=== PATIENT | male | born 1945 | race Caucasian/White ===

== ENCOUNTER → 2016-09-28 | Outpatient (CLI) | payer MEDICARE, OTHER ==
[~2016-09-28] MED LIST: ALEN1TAB48 PO; ALLO300 PO; ALLO300T2 PO; ALPR.25 PO; ALPR0.25 PO; ASPI1TAB69 PO; CLAR10CA3 PO; CLAR10TA7 PO; CLOP75TA PO; DONE10TA14 PO; DONE10TA7 PO; FAMO20TA2 PO; FISH120014 PO; FISHCAP4 PO; FOSA70TA PO; LEVO50TA4 PO; LOSA50TA PO; MEMA28CA PO; METO25 PO; METO25TA3 PO; NITR0.4S SL; PLAV75TA PO; PROT40TA PO; SERT-132 PO; SERT25TA83 PO; SIMV20 PO; SIMV20TA PO; ZOFR4TAB3 SL
== END ==
LOC: PLAB 14:26
PROVIDERS: ATTEND Radiology Radiation Oncology
DX: C61 Malignant neoplasm of prostate (principal)
CPT/HCPCS: 36415; 84153

== ENCOUNTER 2016-11-29 12:59 | Emergency (ER) | payer MEDICARE, OTHER ==
[~2016-11-29] VITALS: Ht 170.2 cm; Wt 86.0 kg
[~2016-11-29 12:59] MED LIST changes: -ALEN1TAB48 PO; -ALLO300T2 PO; -ALPR0.25 PO; -ASPI1TAB69 PO; -CLAR10CA3 PO; -CLOP75TA PO; -DONE10TA7 PO; -FAMO20TA2 PO; -FISHCAP4 PO; -METO25TA3 PO; -SERT-132 PO; -SIMV20TA PO
[2016-11-29 13:05] VITALS: BP 134/69; PULSE 64; RESP 18; TEMP 98.2; O2SAT 94
[2016-11-29] MEDS ORDERED: LEVO50TA4 PO (13:44)
[2016-11-29] MEDS ORDERED: SERT-132 PO (13:44)
[2016-11-29] MEDS ORDERED: SIMV20TA PO (13:44)
[2016-11-29] MEDS ORDERED: CLOP75TA PO (13:44)
[2016-11-29] MEDS ORDERED: FAMO20TA2 PO (13:44)
[2016-11-29] MEDS ORDERED: DONE10TA7 PO (13:44)
[2016-11-29] MEDS ORDERED: ALPR0.25 PO (13:44)
[2016-11-29] MEDS ORDERED: METO25TA3 PO (13:44)
[2016-11-29] MEDS ORDERED: FISHCAP4 PO (13:44)
[2016-11-29] MEDS ORDERED: MEMA28CA PO (13:44)
[2016-11-29] MEDS ORDERED: ALLO300T2 PO (13:44)
[2016-11-29] MEDS ORDERED: LOSA50TA PO (13:44)
[2016-11-29] MEDS ORDERED: CLAR10CA3 PO (13:44)
[2016-11-29] MEDS ORDERED: ALEN1TAB48 PO (13:44)
[2016-11-29] MEDS ORDERED: ASPI1TAB69 PO (13:44)
[2016-11-29 14:23] VITALS: BP 151/83; PULSE 74; RESP 16; O2SAT 96
--- NOTE | 2016-11-29 14:52 | PD ---
HPI Chief Complaint: GI Complaint Time Seen by Provider: 13:23 Travel History International Travel<30 days: No Contact w/Intl Traveler<30days: No Traveled to known affect area: No History of Present Illness HPI 71-year-old male complains of abdominal pain. Patient has dementia and unable to provide much information. Information obtained from patient's . Patient 's states that patient was going to the bathroom this morning and started complaining abdominal pain. Patient states that the pain was cramping pain intermittent pain. Patient had a near syncopal episode with the pain. Patient' s gave patient some MiraLAX and enema without any result in bowel movement. Patient was brought to the ED for evaluation. Patient had 2 bowel movement in the emergency room. Patient states that he is feeling better however still has some abdominal pain. Patient's reported no vomiting or diarrhea. Patient's blood reported no fever at home. Patient denies any dysuria or frequency. PFSH Past Medical History Hx Anticoagulant Therapy: Yes Arthritis: Yes Blood Disorders: No Anxiety: Yes Depression: Yes Cancer: No Cardiovascular Problems: Yes High Cholesterol: Yes Dementia: Yes Diminished Hearing: No Endocrine: No Gastrointestinal Disorders: Yes (GERD) GERD: Yes Hypertension: Yes Implanted Vascular Access Dvce: No Neurologic: Yes (DEMENTIA) Psychiatric: Yes Immunizations Current: Yes Thyroid Disease: Yes (Hypothryism) Influenza Vaccination: Yes Past Surgical History Other Surgery: No Social History Alcohol Use: No Tobacco Use: No Substance Use: No Allergies-Medications (Allergen,Severity, Reaction): Coded Allergies: No Known Allergies (Verified , 07/02/16) Reported Meds & Prescriptions Reported Meds & Active Scripts Active Reported Claritin (Loratadine) 10 Mg Cap 10 Mg PO DAILY Alendronate (Alendronate Sodium) 70 Mg Tab 70 Mg PO Q7D Metoprolol Tartrate 25 Mg Tab 25 Mg PO BID Donepezil 10 Mg Tab 10 Mg PO HS Clopidogrel (Clopidogrel Bisulfate) 75 Mg Tab 75 Mg PO DAILY Losartan (Losartan Potassium) 50 Mg Tab 50 Mg PO DAILY Aspirin 81 Mg Tabdr 81 Mg PO DAILY Namenda Xr (Memantine) 28 Mg Caper 28 Mg PO DAILY Fish Oil + D3 (Fish Oil-Cholecalciferol) 1,200-1,000 Mg-Unit Cap 1 Cap PO DAILY Famotidine 20 Mg Tab 20 Mg PO DAILY Alprazolam 0.25 Mg Tab 0.25 Mg PO Q6H PRN Sertraline (Sertraline HCl) 50 Mg Tab 50 Mg PO DAILY Levothyroxine (Levothyroxine Sodium) 50 Mcg Tab 50 Mcg PO DAILY Allopurinol 300 Mg Tab 300 Mg PO DAILY Simvastatin 20 Mg Tab 10 Mg PO DAILY Review of Systems General / Constitutional: No: Fever Eyes: No: Visual changes HENT: No: Headaches Cardiovascular: No: Chest Pain or Discomfort Respiratory: No: Shortness of Breath Gastrointestinal: Positive: Abdominal Pain Genitourinary: No: Dysuria Musculoskeletal: No: Pain Skin: No Rash Neurologic: No: Weakness Psychiatric: No: Depression Endocrine: No: Polydipsia Hematologic/Lymphatic: No: Easy Bruising Physical Exam Narrative GENERAL: Well-nourished, well-developed patient. SKIN: Warm and dry. HEAD: Normocephalic. EYES: No scleral icterus. No injection or drainage. NECK: Supple, trachea midline. No JVD or lymphadenopathy. CARDIOVASCULAR: Regular rate and rhythm without murmurs, gallops, or rubs. RESPIRATORY: Breath sounds equal bilaterally. No accessory muscle use. GASTROINTESTINAL: Abdomen soft, nondistended. Patient has mild tenderness on palpation right mid abdomen. No rebound tenderness. No mass. MUSCULOSKELETAL: No cyanosis, or edema. BACK: Nontender without obvious deformity. No CVA tenderness. Neurologic exam: Patient awake and alert. Patient oriented to name. Patient moves all extremity well. No obvious focal neurological deficit. Data Data Last Documented VS Vital Signs Date Time Temp Pulse Resp B/P Pulse Ox O2 Delivery O2 Flow Rate FiO2 11/29/16 15:07 18 97 Room Air 11/29/16 14:23 74 151/83 11/29/16 13:05 98.2 Orders Complete Blood Count With Diff (11/29/16 14:48) Comprehensive Metabolic Panel (11/29/16 14:48) Lipase (11/29/16 14:48) Urinalysis - C+S If Indicated (11/29/16 14:48) Abdomen, Flat & Upright (11/29/16 14:48) Iv Access Insert/Monitor (11/29/16 14:48) Ecg Monitoring (11/29/16 14:48) Oximetry (11/29/16 14:48) Labs Laboratory Tests Test 11/29/16 11/29/16 14:55 15:20 White Blood Count 15.7 TH/MM3 Red Blood Count 3.81 MIL/MM3 Hemoglobin 11.1 GM/DL Hematocrit 34.6 % Mean Corpuscular Volume 90.9 FL Mean Corpuscular Hemoglobin 29.2 PG Mean Corpuscular Hemoglobin 32.1 % Concent Red Cell Distribution Width 13.7 % Platelet Count 218 TH/MM3 Mean Platelet Volume 7.7 FL Neutrophils (%) (Auto) 88.6 % Lymphocytes (%) (Auto) 2.4 % Monocytes (%) (Auto) 6.5 % Eosinophils (%) (Auto) 0.1 % Basophils (%) (Auto) 2.4 % Neutrophils # (Auto) 13.9 TH/MM3 Lymphocytes # (Auto) 0.4 TH/MM3 Monocytes # (Auto) 1.0 TH/MM3 Eosinophils # (Auto) 0.0 TH/MM3 Basophils # (Auto) 0.4 TH/MM3 CBC Comment DIFF FINAL Differential Comment Sodium Level 134 MEQ/L Potassium Level 4.7 MEQ/L Chloride Level 100 MEQ/L Carbon Dioxide Level 25.4 MEQ/L Anion Gap 9 MEQ/L Blood Urea Nitrogen 15 MG/DL Creatinine 1.40 MG/DL Estimat Glomerular Filtration 50 ML/MIN Rate Random Glucose 139 MG/DL Calcium Level 9.3 MG/DL Total Bilirubin 0.5 MG/DL Aspartate Amino Transf 31 U/L (AST/SGOT) Alanine Aminotransferase 30 U/L (ALT/SGPT) Alkaline Phosphatase 121 U/L Total Protein 7.9 GM/DL Albumin 4.4 GM/DL Lipase 127 U/L Urine Color YELLOW Urine Turbidity CLEAR Urine pH 6.0 Urine Specific [place] 1.020 Urine Protein NEG mg/dL Urine Glucose (UA) NEG mg/dL Urine Ketones NEG mg/dL Urine Occult Blood NEG Urine Nitrite NEG Urine Bilirubin NEG Urine Leukocyte Esterase NEG Urine WBC 0-2 /hpf Urine Squamous Epithelial 0-5 /hpf Cells Urine Mucus MOD /lpf Microscopic Urinalysis Comment CULT NOT INDICATED MDM Medical Decision Making Medical Screen Exam Complete: Yes Emergency Medical Condition: Yes Interpretation(s) Last Impressions Abdomen X-Ray 11/29/16 2000 Signed Impressions: Service Date/Time: Tuesday, November 29, 2016 15:18 - CONCLUSION: Unremarkable abdomen. Jonny Mancuso MD 1626 PM. CBC WBC 15.7. Hemoglobin 11.1 hematocrit 34.6. 88 neutrophil. Creatinine 1.4. UA is negative Differential Diagnosis Differential diagnosis including abdominal colic, constipation, colitis, UTI, pyelonephritis, nephrolithiasis. Narrative Course 71-year-old male with intermittent abdominal cramping. Norberto Donahue MD Nov 29, 2016 14:52
[2016-11-29 15:03] LABS: AUTOMATED NEUTROPHIL # 13.9 TH/MM3 (1.8-7.7); BASOPHIL # 0.4 TH/MM3 (0-0.2); BASOPHIL % 2.4 % (0.0-2.0); EOSINOPHIL % 0.1 % (0.0-4.0); HEMATOCRIT 34.6 % (39.0-51.0); LYMPH % 2.4 % (9.0-44.0); LYMPHOCYTE # 0.4 TH/MM3 (1.0-4.8); MEAN CELL VOLUME 90.9 FL (80.0-100.0); MEAN CORPUSCULAR HEMOGLOBIN 29.2 PG (27.0-34.0); MEAN CORPUSCULAR HGB CONC 32.1 % (32.0-36.0); MONO % 6.5 % (0.0-8.0); NEUT % 88.6 % (16.0-70.0); PLATELET COUNT 218 TH/MM3 (150-450); RED BLOOD COUNT 3.81 MIL/MM3 (4.50-5.90); RED CELL DISTRIBUTION WIDTH 13.7 % (11.6-17.2); WHITE BLOOD COUNT 15.7 TH/MM3 (4.0-11.0)
[2016-11-29 15:07] VITALS: RESP 18; O2SAT 97
[2016-11-29 15:14] LABS: CHLORIDE 100 MEQ/L (98-107); POTASSIUM 4.7 MEQ/L (3.5-5.1); SODIUM (NA) 134 MEQ/L (136-145)
[2016-11-29 15:18] LABS: ANION GAP 9 MEQ/L (5-15); BICARBONATE 25.4 MEQ/L (21.0-32.0); BLOOD UREA NITROGEN 15 MG/DL (7-18)
[2016-11-29 15:21] LABS: ALT (GPT) 30 U/L (12-78); AST (GOT) 31 U/L (15-37); GLOMERULAR FILTRATION RATE 50 ML/MIN (>89)
[2016-11-29 15:23] LABS: TOTAL BILIRUBIN ADULT 0.5 MG/DL (0.2-1.0)
[2016-11-29 15:24] LABS: ALKALINE PHOSPHATASE 121 U/L (45-117)
[2016-11-29 15:38] LABS: HEMO FLAGS DIFF FINAL
[2016-11-29 15:53] LABS: BLOOD, URINE NEG (NEG); GLUCOSE,URINE NEG (NEG); KETONE, URINE NEG (NEG); NITRITE,URINE NEG (NEG)
[2016-11-29 16:00] LABS: URINE COLOR YELLOW (YELLW/STRAW)
[2016-11-29 16:01] LABS: COMMENT (UR) CULT NOT INDICATED; CULTURE IF INDICATED CULT NOT INDICATED; MUCUS URINE MOD /lpf (OCC); SQUAMOUS EPITHELIAL CELL URINE 0-5 /hpf (0-5); WBC, URINE 0-2 /hpf (0-5)
--- NOTE | 2016-11-29 16:16 | RADHPO ---
EXAM DATE/TIME: 11/29/2016 15:18 [facility] COMPARISON: No previous studies available for comparison. INDICATIONS : Ileus. Abdominal pain and constipation. MEDICAL HISTORY : None. SURGICAL HISTORY : None. ENCOUNTER: Initial ACUITY: 3 days PAIN SCORE: 4/10 LOCATION: abdomen FINDINGS: Supine and upright views of the abdomen were performed. The abdominal bowel gas pattern is normal. No air fluid levels are seen. No abnormal masses, calcifications, or organomegaly is seen. The visu alized lower lungs are clear. No evidence of free intraperitoneal gas. Degenerative changes lower ned mbar spine. Prostatic seeds are seen.. CONCLUSION: Unremarkable abdomen. Jonny Mancuso MD on November 29, 2016 at 16:14 Board Certified Radiologist. This report was verified electronically.
[2016-11-29] MEDS ORDERED: SODIUM CHLOR 0.9% 1000 ML INJ 1,000 ML IV SCH (16:45)
[2016-11-29] MEDS ORDERED: IOHEXOL 350 MG/ML 10 ML VIAL (for RAD DIAG) IV ONE (17:27)
[2016-11-29 17:42] VITALS: BP 144/77; PULSE 76; RESP 18; O2SAT 93
--- NOTE | 2016-11-29 17:49 | RADHPO ---
EXAM DATE/TIME: 11/29/2016 17:08 [facility] COMPARISON: No previous studies available for comparison. INDICATIONS : Abdominal pain. IV CONTRAST: 75 cc Omnipaque 350 (iohexol) IV ORAL CONTRAST: No oral contrast ingested. RADIATION DOSE: 13.41 CTDIvol (mGy) MEDICAL HISTORY : Gastroesophageal reflux disease. Hypertension. SURGICAL HISTORY : None. ENCOUNTER: Initial ACUITY: 1 day PAIN SCALE: 3/10 LOCATION: abdomen and pelvis TECHNIQUE: Volumetric scanning of the abdomen and pelvis was performed. Using automated exposure control and ad justment of the mA and/or kV according to patient size, radiation dose was kept as low as reasonably achievable to obtain optimal diagnostic quality images. FINDINGS: LOWER LUNGS: The visualized lower lungs are clear. LIVER: Homogeneous density without lesion. There is no dilation of the biliary tree. No calcified [place] es. SPLEEN: Normal size without lesion. PANCREAS: Within normal limits. KIDNEYS: Normal in size and shape. There is no mass, stone or hydronephrosis. ADRENAL GLANDS: Within normal limits. VASCULAR: There is no aortic aneurysm. BOWEL/MESENTERY: The stomach, small bowel, and colon demonstrate no acute abnormality. There is no free intraperitone al air or fluid. ABDOMINAL WALL: Within normal limits. RETROPERITONEUM: There is no lymphadenopathy. BLADDER: No wall thickening or mass. REPRODUCTIVE: Within normal limits. INGUINAL: There is no lymphadenopathy . Small fat-containing inguinal hernias are noted. MUSCULOSKELETAL: Significant lower lumbar facet arthropathy and degenerative disc disease is noted. CONCLUSION: No acute disease. Small bilateral inguinal hernias. Lower lumbar facet arthropathy and degenerative disc disease. Gustavo Wakefield MD on November 29, 2016 at 17:45 Board Certified Radiologist. This report was verified electronically.
--- NOTE | 2016-11-29 17:57 | PD ---
Physical Exam Date Seen by Provider: Nov 29, 2016 Time Seen by Provider: 17:53 Narrative This 71-year-old male seen initially by Dr. Donahue. He has a history of dementia. He had some abdominal pain earlier which started while he was trying to have a bowel movement. He has had a couple bowel movements here. Dr. Perdomo had ordered lab work and his white count came back at 15,000. He was noted to have some right-sided abdominal tenderness since felt that a CT scan should be done to assess for etiology of the pain. The CT scan has been done. There are small bilateral inguinal hernias. The patient at this time has a soft nontender abdomen. He is stable for discharge. This pain may been due to constipation but he is not constipated now Data Data Last Documented VS Vital Signs Date Time Temp Pulse Resp B/P Pulse Ox O2 Delivery O2 Flow Rate FiO2 11/29/16 17:42 76 18 144/77 93 Room Air 11/29/16 13:05 98.2 Orders Complete Blood Count With Diff (11/29/16 14:48) Comprehensive Metabolic Panel (11/29/16 14:48) Lipase (11/29/16 14:48) Urinalysis - C+S If Indicated (11/29/16 14:48) Abdomen, Flat & Upright (11/29/16 14:48) Iv Access Insert/Monitor (11/29/16 14:48) Ecg Monitoring (11/29/16 14:48) Oximetry (11/29/16 14:48) Ct Abd/Pel W Iv Contrast(Rout) (11/29/16 16:38) Sodium Chlor 0.9% 1000 Ml Inj (Ns 1000 M (11/29/16 16:45) Iohexol 350 Inj (Omnipaque 350 Inj) (11/29/16 17:27) Labs Laboratory Tests Test 11/29/16 11/29/16 14:55 15:20 White Blood Count 15.7 TH/MM3 Red Blood Count 3.81 MIL/MM3 Hemoglobin 11.1 GM/DL Hematocrit 34.6 % Mean Corpuscular Volume 90.9 FL Mean Corpuscular Hemoglobin 29.2 PG Mean Corpuscular Hemoglobin 32.1 % Concent Red Cell Distribution Width 13.7 % Platelet Count 218 TH/MM3 Mean Platelet Volume 7.7 FL Neutrophils (%) (Auto) 88.6 % Lymphocytes (%) (Auto) 2.4 % Monocytes (%) (Auto) 6.5 % Eosinophils (%) (Auto) 0.1 % Basophils (%) (Auto) 2.4 % Neutrophils # (Auto) 13.9 TH/MM3 Lymphocytes # (Auto) 0.4 TH/MM3 Monocytes # (Auto) 1.0 TH/MM3 Eosinophils # (Auto) 0.0 TH/MM3 Basophils # (Auto) 0.4 TH/MM3 CBC Comment DIFF FINAL Differential Comment Sodium Level 134 MEQ/L Potassium Level 4.7 MEQ/L Chloride Level 100 MEQ/L Carbon Dioxide Level 25.4 MEQ/L Anion Gap 9 MEQ/L Blood Urea Nitrogen 15 MG/DL Creatinine 1.40 MG/DL Estimat Glomerular Filtration 50 ML/MIN Rate Random Glucose 139 MG/DL Calcium Level 9.3 MG/DL Total Bilirubin 0.5 MG/DL Aspartate Amino Transf 31 U/L (AST/SGOT) Alanine Aminotransferase 30 U/L (ALT/SGPT) Alkaline Phosphatase 121 U/L Total Protein 7.9 GM/DL Albumin 4.4 GM/DL Lipase 127 U/L Urine Color YELLOW Urine Turbidity CLEAR Urine pH 6.0 Urine Specific [place] 1.020 Urine Protein NEG mg/dL Urine Glucose (UA) NEG mg/dL Urine Ketones NEG mg/dL Urine Occult Blood NEG Urine Nitrite NEG Urine Bilirubin NEG Urine Leukocyte Esterase NEG Urine WBC 0-2 /hpf Urine Squamous Epithelial 0-5 /hpf Cells Urine Mucus MOD /lpf Microscopic Urinalysis Comment CULT NOT INDICATED MDM Medical Record Reviewed: No Supervised Visit with LIANET: No Differential Diagnosis Differential included appendicitis, cholecystitis, constipation, nonspecific abdominal pain Narrative Course Patient has had several bowel movements in the ER. His white count came back elevated at 15,[address] Perdomo had ordered a CT scan which has been read as negative. I have reexamined the patient prior to discharge his abdomen is soft nontender. He has no signs. He will be released Diagnosis Primary Impression: Constipation Disposition: 01 DISCHARGE HOME Condition: Stable Vidal Tobin MD Nov 29, 2016 17:57
== END 2016-11-29 18:10 | disposition home or self-care (01) ==
LOC: PHED 12:59
DX: K59.00 Constipation, unspecified (principal); E07.9 Disorder of thyroid, unspecified; F03.90 Unspecified dementia, unspecified severity, without behavioral disturbance, psychotic disturbance, mood disturbance, and anxiety; I10 Essential (primary) hypertension; E78.00 Pure hypercholesterolemia, unspecified; F41.8 Other specified anxiety disorders; M19.90 Unspecified osteoarthritis, unspecified site; Z79.01 Long term (current) use of anticoagulants
CPT/HCPCS: 74020; 74177; 80053; 81001; 83690; 85025; 96360; 99284; J7030; Q9967

== ENCOUNTER → 2017-04-10 | Outpatient (CLI) | payer MEDICARE, OTHER ==
[~2017-04-10] MED LIST changes: +ALEN1TAB48 PO; -ALLO300 PO; +ALLO300T2 PO; -ALPR.25 PO; +ALPR0.25 PO; +ASPI1TAB69 PO; +CLAR10CA3 PO; -CLAR10TA7 PO; +CLOP75TA PO; -DONE10TA14 PO; +DONE10TA7 PO; +FAMO20TA2 PO; -FISH120014 PO; +FISHCAP4 PO; -FOSA70TA PO; -METO25 PO; +METO25TA3 PO; -NITR0.4S SL; -PLAV75TA PO; -PROT40TA PO; +SERT-132 PO; -SERT25TA83 PO; -SIMV20 PO; +SIMV20TA PO; -ZOFR4TAB3 SL
[2017-04-10 11:59] LABS: AUTOMATED NEUTROPHIL # 3.8 TH/MM3 (1.8-7.7); BASOPHIL % 0.9 % (0.0-2.0); EOSINOPHIL # 0.1 TH/MM3 (0-0.4); EOSINOPHIL % 2.4 % (0.0-4.0); HEMATOCRIT 34.3 % (39.0-51.0); HEMO FLAGS DIFF FINAL; LYMPH % 14.3 % (9.0-44.0); LYMPHOCYTE # 0.8 TH/MM3 (1.0-4.8); MEAN CELL VOLUME 89.1 FL (80.0-100.0); MEAN CORPUSCULAR HEMOGLOBIN 29.3 PG (27.0-34.0); MEAN CORPUSCULAR HGB CONC 32.9 % (32.0-36.0); MONO % 12.5 % (0.0-8.0); NEUT % 69.9 % (16.0-70.0); PLATELET COUNT 203 TH/MM3 (150-450); RED BLOOD COUNT 3.85 MIL/MM3 (4.50-5.90); RED CELL DISTRIBUTION WIDTH 15.1 % (11.6-17.2); WHITE BLOOD COUNT 5.4 TH/MM3 (4.0-11.0)
[2017-04-10 12:16] LABS: ANION GAP 8 MEQ/L (5-15); AST (GOT) 23 U/L (15-37); BICARBONATE 25.9 MEQ/L (21.0-32.0); BLOOD UREA NITROGEN 11 MG/DL (7-18); CHLORIDE 100 MEQ/L (98-107); GLOMERULAR FILTRATION RATE 56 ML/MIN (>89); GLUCOSE,FASTING 96 MG/DL (74-99); POTASSIUM 4.1 MEQ/L (3.5-5.1); SODIUM (NA) 134 MEQ/L (136-145)
[2017-04-10 12:25] LABS: ALKALINE PHOSPHATASE 115 U/L (45-117); ALT (GPT) 29 U/L (12-78); HDL CHOLESTEROL 39.1 MG/DL (40.0-60.0); LDL CHOLESTEROL 76 MG/DL (0-99); TOTAL BILIRUBIN ADULT 0.4 MG/DL (0.2-1.0); TRANSFERRIN IRON PROFILE 363 MG/DL (200-360)
== END ==
LOC: PLAB 08:25
PROVIDERS: ATTEND Family Medicine
DX: E78.5 Hyperlipidemia, unspecified (principal); E03.9 Hypothyroidism, unspecified; D64.9 Anemia, unspecified
CPT/HCPCS: 36415; 80053; 80061; 83540; 83550; 84443; 85025

== ENCOUNTER → 2017-07-04 | Outpatient (CLI) | payer MEDICARE, OTHER | LOC: PLAB 11:24 | PROVIDERS: ATTEND Urology | DX: C61 Malignant neoplasm of prostate (principal) | CPT/HCPCS: 36415; 84153 ==

== ENCOUNTER 2017-07-13 21:50 | Emergency (ER) | payer MEDICARE, OTHER ==
[~2017-07-13] VITALS: Ht 167.6 cm; Wt 85.0 kg
[2017-07-13 21:52] VITALS: BP 146/84; PULSE 85; RESP 16; TEMP 98.1; O2SAT 96
--- NOTE | 2017-07-13 22:00 | PD ---
Physical Exam Exam Limitations: Altered Mental Status, Poor Historian Date Seen by Provider: Jul 13, 2017 Time Seen by Provider: 21:57 Narrative 71-year-old male presents to the emergency Department with confusion, headache, and shuffling gait is been progressively worsening over the past 4 days. Patient has a history of dementia, but the feels that he is much more confused and different than baseline in the last 72 hours. We are unable to quantify his headache pain. Patient has no known drug allergies. Data Data Last Documented VS Vital Signs Date Time Temp Pulse Resp B/P (MAP) Pulse Ox O2 Delivery O2 Flow Rate FiO2 07/13/17 21:52 98.1 85 16 146/84 (104) 96 Room Air [facility] Medical Record Reviewed: Yes Supervised Visit with LIANET: Yes Narrative Course Vital signs reviewed. Patient awaiting bed placement. Condition: Stable Oneil Gomez Jul 13, 2017 22:00
[2017-07-13 22:10] VITALS: BP 159/76; PULSE 76; RESP 16; O2SAT 97
[2017-07-13 22:13] VITALS: TEMP 100.4
--- NOTE | 2017-07-13 22:23 | PD ---
HPI Chief Complaint: Altered Mental Status Time Seen by Provider: 22:01 Travel History International Travel<30 days: No Contact w/Intl Traveler<30days: No Traveled to known affect area: No PFSH Past Medical History Hx Anticoagulant Therapy: Yes Arthritis: Yes Blood Disorders: No Anxiety: Yes Depression: Yes Cancer: Yes (PROSTATE) Cardiovascular Problems: Yes High Cholesterol: Yes Dementia: Yes Diminished Hearing: No Endocrine: No Gastrointestinal Disorders: Yes (GERD) GERD: Yes Hypertension: Yes Implanted Vascular Access Dvce: No Neurologic: Yes (DEMENTIA) Psychiatric: Yes Immunizations Current: Yes Thyroid Disease: Yes (HYPOTHYROIDISM) Past Surgical History Cardiac Surgery: Yes (PACEMAKER (2016)) Coronary Artery Bypass Graft: Yes (X4) Other Surgery: No Social History Alcohol Use: No Tobacco Use: No Substance Use: No Allergies-Medications (Allergen,Severity, Reaction): Coded Allergies: No Known Allergies (Verified , 07/02/16) Reported Meds & Prescriptions Reported Meds & Active Scripts Active Reported Claritin (Loratadine) 10 Mg Cap 10 Mg PO DAILY Alendronate (Alendronate Sodium) 70 Mg Tab 70 Mg PO Q7D Metoprolol Tartrate 25 Mg Tab 25 Mg PO BID Donepezil 10 Mg Tab 10 Mg PO HS Clopidogrel (Clopidogrel Bisulfate) 75 Mg Tab 75 Mg PO DAILY Losartan (Losartan Potassium) 50 Mg Tab 50 Mg PO DAILY Aspirin 81 Mg Tabdr 81 Mg PO DAILY Namenda Xr (Memantine) 28 Mg Caper 28 Mg PO DAILY Fish Oil + D3 (Fish Oil-Cholecalciferol) 1,200-1,000 Mg-Unit Cap 1 Cap PO DAILY Famotidine 20 Mg Tab 20 Mg PO DAILY Alprazolam 0.25 Mg Tab 0.25 Mg PO Q6H PRN Sertraline (Sertraline HCl) 50 Mg Tab 50 Mg PO DAILY Levothyroxine (Levothyroxine Sodium) 50 Mcg Tab 50 Mcg PO DAILY Allopurinol 300 Mg Tab 300 Mg PO DAILY Simvastatin 20 Mg Tab 10 Mg PO DAILY Data Data Last Documented VS Vital Signs Date Time Temp Pulse Resp B/P (MAP) Pulse Ox O2 Delivery O2 Flow Rate FiO2 07/14/17 00:37 61 16 136/70 (92) 97 Room Air 07/13/17 22:13 100.4 Orders Orders Complete Blood Count With Diff (07/13/17 22:16) Comprehensive Metabolic Panel (07/13/17 22:16) Lipase (07/13/17 22:16) Lactic Acid (07/13/17 22:16) Prothrombin Time / Inr (Pt) (07/13/17 22:16) Act Partial Throm Time (Ptt) (07/13/17 22:16) Urinalysis - C+S If Indicated (07/13/17 22:16) Iv Access Insert/Monitor (07/13/17 22:16) Ecg Monitoring (07/13/17 22:16) Oximetry (07/13/17 22:16) Sodium Chloride 0.9% Flush (Ns Flush) (07/13/17 22:30) Chest, Single Ap (07/13/17 ) Ct Brain W/O Iv Contrast(Rout) (07/13/17 ) Troponin I (07/13/17 22:16) Electrocardiogram (07/13/17 ) Cath For Specimen (07/13/17 22:51) Ct Abd/Pel W Iv Contrast(Rout) (07/13/17 ) Influenzae A/B Antigen (07/14/17 00:04) Iohexol 350 Inj (Omnipaque 350 Inj) (07/14/17 00:07) Labs Laboratory Tests Test 07/13/17 22:35 07/13/17 22:38 07/13/17 22:50 White Blood Count 6.6 TH/MM3 Red Blood Count 3.66 MIL/MM3 Hemoglobin 10.8 GM/DL Hematocrit 32.4 % Mean Corpuscular Volume 88.5 FL Mean Corpuscular Hemoglobin 29.4 PG Mean Corpuscular Hemoglobin Concent 33.2 % Red Cell Distribution Width 14.8 % Platelet Count 209 TH/MM3 Mean Platelet Volume 7.7 FL Neutrophils (%) (Auto) 69.5 % Lymphocytes (%) (Auto) 14.6 % Monocytes (%) (Auto) 13.4 % Eosinophils (%) (Auto) 1.7 % Basophils (%) (Auto) 0.8 % Neutrophils # (Auto) 4.6 TH/MM3 Lymphocytes # (Auto) 1.0 TH/MM3 Monocytes # (Auto) 0.9 TH/MM3 Eosinophils # (Auto) 0.1 TH/MM3 Basophils # (Auto) 0.1 TH/MM3 CBC Comment DIFF FINAL Differential Comment Prothrombin Time 10.6 SEC Prothromb Time International Ratio 1.0 RATIO Activated Partial Thromboplast Time 26.3 SEC Blood Urea Nitrogen 12 MG/DL Creatinine 1.33 MG/DL Random Glucose 92 MG/DL Total Protein 7.5 GM/DL Albumin 4.2 GM/DL Calcium Level 8.9 MG/DL Alkaline Phosphatase 113 U/L Aspartate Amino Transf (AST/SGOT) 20 U/L Alanine Aminotransferase (ALT/SGPT) 27 U/L Total Bilirubin 0.3 MG/DL Sodium Level 130 MEQ/L Potassium Level 4.2 MEQ/L Chloride Level 95 MEQ/L Carbon Dioxide Level 27.9 MEQ/L Anion Gap 7 MEQ/L Estimat Glomerular Filtration Rate 53 ML/MIN Troponin I LESS THAN 0.02 NG/ML Lipase 144 U/L Lactic Acid Level 0.7 mmol/L Urine Color YELLOW Urine Turbidity CLEAR Urine pH 6.5 Urine Specific [place] 1.016 Urine Protein NEG mg/dL Urine Glucose (UA) NEG mg/dL Urine Ketones NEG mg/dL Urine Occult Blood NEG Urine Nitrite NEG Urine Bilirubin NEG Urine Urobilinogen LESS THAN 2.0 MG/DL Urine Leukocyte Esterase NEG Urine RBC 2 /hpf Urine Squamous Epithelial Cells <1 /hpf Microscopic Urinalysis Comment CULT NOT INDICATED MDM Condition: Stable Corey Zepeda MD Jul 13, 2017 22:23
--- NOTE | 2017-07-13 22:26 | PD ---
HPI Chief Complaint: Altered Mental Status Time Seen by Provider: 22:01 Travel History International Travel<30 days: No Contact w/Intl Traveler<30days: No Traveled to known affect area: No History of Present Illness HPI Patient is a 71-year-old male presents emergency department for evaluation of altered mental status. The patient has a history of dementia was been increasingly confused over the past 2-1/2 days. His states that initially she noticed a shuffling gait and he was touching of his forehead stating that he had a headache. She's not noticed any cough or congestion no nausea no vomiting no new rashes. He's been weaker than usual and this morning was unable to walk, she states normally he can converse and does so but recently he' s just been more confused and harder to have a conversation with. PFSH Past Medical History Hx Anticoagulant Therapy: Yes Arthritis: Yes Blood Disorders: No Anxiety: Yes Depression: Yes Cancer: Yes (PROSTATE) Cardiovascular Problems: Yes High Cholesterol: Yes Dementia: Yes Diminished Hearing: No Endocrine: No Gastrointestinal Disorders: Yes (GERD) GERD: Yes Hypertension: Yes Implanted Vascular Access Dvce: No Neurologic: Yes (DEMENTIA) Psychiatric: Yes Immunizations Current: Yes Thyroid Disease: Yes (HYPOTHYROIDISM) Past Surgical History Cardiac Surgery: Yes (PACEMAKER (2016)) Coronary Artery Bypass Graft: Yes (X4) Other Surgery: No Social History Alcohol Use: No Tobacco Use: No Substance Use: No Allergies-Medications (Allergen,Severity, Reaction): Coded Allergies: No Known Allergies (Verified , 07/02/16) Reported Meds & Prescriptions Reported Meds & Active Scripts Active Reported Claritin (Loratadine) 10 Mg Cap 10 Mg PO DAILY Alendronate (Alendronate Sodium) 70 Mg Tab 70 Mg PO Q7D Metoprolol Tartrate 25 Mg Tab 25 Mg PO BID Donepezil 10 Mg Tab 10 Mg PO HS Clopidogrel (Clopidogrel Bisulfate) 75 Mg Tab 75 Mg PO DAILY Losartan (Losartan Potassium) 50 Mg Tab 50 Mg PO DAILY Aspirin 81 Mg Tabdr 81 Mg PO DAILY Namenda Xr (Memantine) 28 Mg Caper 28 Mg PO DAILY Fish Oil + D3 (Fish Oil-Cholecalciferol) 1,200-1,000 Mg-Unit Cap 1 Cap PO DAILY Famotidine 20 Mg Tab 20 Mg PO DAILY Alprazolam 0.25 Mg Tab 0.25 Mg PO Q6H PRN Sertraline (Sertraline HCl) 50 Mg Tab 50 Mg PO DAILY Levothyroxine (Levothyroxine Sodium) 50 Mcg Tab 50 Mcg PO DAILY Allopurinol 300 Mg Tab 300 Mg PO DAILY Simvastatin 20 Mg Tab 10 Mg PO DAILY Review of Systems Except as stated in HPI: all other systems reviewed are Neg Physical Exam Narrative GENERAL: Well-developed, well-nourished, pleasantly confused elderly male in no obvious distress. SKIN: Focused skin assessment dry. Hot to touch. Normal skin turgor no rash seen on his person. HEAD: Atraumatic. Normocephalic. EYES: Pupils equal and round. No scleral icterus. No injection or drainage. ENT: No nasal bleeding or discharge. Mucous membranes pink and moist. TMs clear bilaterally, oropharynx clear. NECK: Trachea midline. No JVD. Kernig's and Brudzinski signs negative. CARDIOVASCULAR: Regular rate and rhythm. No murmur appreciated. RESPIRATORY: No accessory muscle use. Clear to auscultation. Breath sounds equal bilaterally. GASTROINTESTINAL: Abdomen soft, non-tender, nondistended. Hepatic and splenic margins not palpable. MUSCULOSKELETAL: No obvious deformities. No clubbing. No cyanosis. No edema. NEUROLOGICAL: Awake and alert. No obvious cranial nerve deficits. Motor grossly within normal limits. Normal speech. PSYCHIATRIC: Appropriate mood and affect; insight and judgment normal. Data Data Last Documented VS Vital Signs Date Time Temp Pulse Resp B/P (MAP) Pulse Ox O2 Delivery O2 Flow Rate FiO2 07/14/17 02:09 07/14/17 00:37 61 16 97 Room Air 07/13/17 22:13 100.4 Orders Orders Complete Blood Count With Diff (07/13/17 22:16) Comprehensive Metabolic Panel (07/13/17 22:16) Lipase (07/13/17 22:16) Lactic Acid (07/13/17 22:16) Prothrombin Time / Inr (Pt) (07/13/17 22:16) Act Partial Throm Time (Ptt) (07/13/17 22:16) Urinalysis - C+S If Indicated (07/13/17 22:16) Iv Access Insert/Monitor (07/13/17 22:16) Ecg Monitoring (07/13/17 22:16) Oximetry (07/13/17 22:16) Sodium Chloride 0.9% Flush (Ns Flush) (07/13/17 22:30) Chest, Single Ap (07/13/17 ) Ct Brain W/O Iv Contrast(Rout) (07/13/17 ) Troponin I (07/13/17 22:16) Electrocardiogram (07/13/17 ) Cath For Specimen (07/13/17 22:51) Ct Abd/Pel W Iv Contrast(Rout) (07/13/17 ) Influenzae A/B Antigen (07/14/17 00:04) Iohexol 350 Inj (Omnipaque 350 Inj) (07/14/17 00:07) Ed Discharge Order (07/14/17 01:38) Labs Laboratory Tests Test 07/13/17 22:35 07/13/17 22:38 07/13/17 22:50 White Blood Count 6.6 TH/MM3 Red Blood Count 3.66 MIL/MM3 Hemoglobin 10.8 GM/DL Hematocrit 32.4 % Mean Corpuscular Volume 88.5 FL Mean Corpuscular Hemoglobin 29.4 PG Mean Corpuscular Hemoglobin Concent 33.2 % Red Cell Distribution Width 14.8 % Platelet Count 209 TH/MM3 Mean Platelet Volume 7.7 FL Neutrophils (%) (Auto) 69.5 % Lymphocytes (%) (Auto) 14.6 % Monocytes (%) (Auto) 13.4 % Eosinophils (%) (Auto) 1.7 % Basophils (%) (Auto) 0.8 % Neutrophils # (Auto) 4.6 TH/MM3 Lymphocytes # (Auto) 1.0 TH/MM3 Monocytes # (Auto) 0.9 TH/MM3 Eosinophils # (Auto) 0.1 TH/MM3 Basophils # (Auto) 0.1 TH/MM3 CBC Comment DIFF FINAL Differential Comment Prothrombin Time 10.6 SEC Prothromb Time International Ratio 1.0 RATIO Activated Partial Thromboplast Time 26.3 SEC Blood Urea Nitrogen 12 MG/DL Creatinine 1.33 MG/DL Random Glucose 92 MG/DL Total Protein 7.5 GM/DL Albumin 4.2 GM/DL Calcium Level 8.9 MG/DL Alkaline Phosphatase 113 U/L Aspartate Amino Transf (AST/SGOT) 20 U/L Alanine Aminotransferase (ALT/SGPT) 27 U/L Total Bilirubin 0.3 MG/DL Sodium Level 130 MEQ/L Potassium Level 4.2 MEQ/L Chloride Level 95 MEQ/L Carbon Dioxide Level 27.9 MEQ/L Anion Gap 7 MEQ/L Estimat Glomerular Filtration Rate 53 ML/MIN Troponin I LESS THAN 0.02 NG/ML Lipase 144 U/L Lactic Acid Level 0.7 mmol/L Urine Color YELLOW Urine Turbidity CLEAR Urine pH 6.5 Urine Specific [place] 1.016 Urine Protein NEG mg/dL Urine Glucose (UA) NEG mg/dL Urine Ketones NEG mg/dL Urine Occult Blood NEG Urine Nitrite NEG Urine Bilirubin NEG Urine Urobilinogen LESS THAN 2.0 MG/DL Urine Leukocyte Esterase NEG Urine RBC 2 /hpf Urine Squamous Epithelial Cells <1 /hpf Microscopic Urinalysis Comment CULT NOT INDICATED MDM Medical Decision Making Medical Screen Exam Complete: Yes Emergency Medical Condition: Yes Differential Diagnosis Fever, pneumonia, sepsis, UTI, influenza, Narrative Course Patient roomed emergency department, febrile here but pleasantly confused. Could be a delirium secondary to a viral illness but needs proper workup to exclude serious causes of fever. Chest x-ray negative, UA negative, CT abdomen negative, CT head negative, influenza test negative. No definitive cause of the patient's fever has been isolated. He is certainly nontoxic in appearance and does not meet sepsis criteria. This could be a viral illness and I discussed management of the fever is this may be leading to some of the delirium /worsening dementia. This was discussed at length with the , I offered admission to the hospital for his worsening mental status and fever however I think this could also be worked up as an outpatient and certainly delirium may worsen on admission. After discussion this with his she elects to take him home and follow-up with her primary care physician we discussed at length return to ED criteria. He is stable for discharge Diagnosis Primary Impression: Altered mental status Qualified Codes: R41.82 - Altered mental status, unspecified Additional Impression: Fever Qualified Codes: R50.9 - Fever, unspecified Disposition: 01 DISCHARGE HOME Condition: Stable Corey Zepeda MD Jul 13, 2017 22:25
[2017-07-13] MEDS ORDERED: SODIUM CHLORIDE 0.9% FLUSH 10 ML FLUSH IV FLUSH PRN (22:30)
--- NOTE | 2017-07-13 22:37 | RADRPT ---
EXAM DATE/TIME: 07/13/2017 22:25 [facility] COMPARISON: CHEST SINGLE AP, October 28, 2015, 15:16. INDICATIONS : Fever MEDICAL HISTORY : Gastroesophageal reflux disease. Hypertension SURGICAL HISTORY : Pacemaker. CABG. ENCOUNTER: Initial ACUITY: 1 day PAIN SCORE: Non-responsive. LOCATION: chest FINDINGS: Again noted is evidence of prior median sternotomy cardiac surgery with bipolar pacemaker overlying t he left hemithorax. There is diminished inspiratory effort with clear lung mirza and no acute cardio pulmonary process. CONCLUSION: No acute disease. No significant change has occurred. Ant Campbell MD on July 13, 2017 at 22:35 Board Certified Radiologist. This report was verified electronically.
[2017-07-13 22:54] LABS: AUTOMATED NEUTROPHIL # 4.6 TH/MM3 (1.8-7.7); BASOPHIL # 0.1 TH/MM3 (0-0.2); BASOPHIL % 0.8 % (0.0-2.0); EOSINOPHIL # 0.1 TH/MM3 (0-0.4); EOSINOPHIL % 1.7 % (0.0-4.0); HEMATOCRIT 32.4 % (39.0-51.0); HEMO FLAGS DIFF FINAL; LYMPH % 14.6 % (9.0-44.0); MEAN CELL VOLUME 88.5 FL (80.0-100.0); MEAN CORPUSCULAR HEMOGLOBIN 29.4 PG (27.0-34.0); MEAN CORPUSCULAR HGB CONC 33.2 % (32.0-36.0); MONO % 13.4 % (0.0-8.0); NEUT % 69.5 % (16.0-70.0); PLATELET COUNT 209 TH/MM3 (150-450); RED BLOOD COUNT 3.66 MIL/MM3 (4.50-5.90); RED CELL DISTRIBUTION WIDTH 14.8 % (11.6-17.2); WHITE BLOOD COUNT 6.6 TH/MM3 (4.0-11.0)
[2017-07-13 22:55] VITALS: O2SAT 97
[2017-07-13 23:06] LABS: ALT (GPT) 27 U/L (12-78); ANION GAP 7 MEQ/L (5-15); AST (GOT) 20 U/L (15-37); BICARBONATE 27.9 MEQ/L (21.0-32.0); BLOOD UREA NITROGEN 12 MG/DL (7-18); CHLORIDE 95 MEQ/L (98-107); GLOMERULAR FILTRATION RATE 53 ML/MIN (>89); POTASSIUM 4.2 MEQ/L (3.5-5.1); SODIUM (NA) 130 MEQ/L (136-145)
[2017-07-13 23:09] LABS: APTT (PATIENT) 26.3 SEC (24.3-30.1); PROTHROMBIN TIME - PATIENT 10.6 SEC (9.8-11.6)
[2017-07-13 23:11] LABS: ALKALINE PHOSPHATASE 113 U/L (45-117); TOTAL BILIRUBIN ADULT 0.3 MG/DL (0.2-1.0)
--- NOTE | 2017-07-13 23:21 | RADRPT ---
EXAM DATE/TIME: 07/13/2017 23:01 [facility] COMPARISON: CT BRAIN W/O CONTRAST, July 02, 2016, 4:24. INDICATIONS : Altered mental status, cephalgia, unable to ambulate. RADIATION DOSE: 29.19 CTDIvol (mGy) MEDICAL HISTORY : Dementia. Hypertension. Carcinoma, prostate. SURGICAL HISTORY : None. ENCOUNTER: Initial ACUITY: 1 day PAIN SCALE: 0/10 LOCATION: cranial TECHNIQUE: Multiple contiguous axial images were obtained of the head. Using automated exposure control and adj ustment of the mA and/or kV according to patient size, radiation dose was kept as low as reasonably a chievable to obtain optimal diagnostic quality images. DICOM format image data is available electro nically for review and comparison. FINDINGS: CEREBRUM: The ventricles are prominent consistent with atrophy. No evidence of midline shift, mass lesion, hem orrhage or acute infarction. No extra-axial fluid collections are seen. POSTERIOR FOSSA: The cerebellum and brainstem are intact. The 4th ventricle is midline. The cerebellopontine angle i s unremarkable. EXTRACRANIAL: The visualized portion of the orbits is intact. SKULL: The calvaria is intact. No evidence of skull fracture. CONCLUSION: 1. Cerebral atrophy. 2. No acute intracranial abnormality. Jonny Mancuso MD on July 13, 2017 at 23:17 Board Certified Radiologist. This report was verified electronically.
[2017-07-13 23:26] LABS: BLOOD, URINE NEG (NEG); COMMENT (UR) CULT NOT INDICATED; CULTURE IF INDICATED CULT NOT INDICATED; GLUCOSE,URINE NEG (NEG); KETONE, URINE NEG (NEG); NITRITE,URINE NEG (NEG); PH, URINE 6.5 (5.0-8.5); SQUAMOUS EPITHELIAL CELL URINE <1 /hpf (0-5); URINE COLOR YELLOW (YELLW/STRAW)
[2017-07-14] MEDS ORDERED: IOHEXOL 350 MG/ML 10 ML VIAL (for RAD DIAG) IVCONTRAST ONE (00:07)
--- NOTE | 2017-07-14 00:25 | RADRPT ---
EXAM DATE/TIME: 07/13/2017 23:53 [facility] COMPARISON: CT ABDOMEN & PELVIS W CONTRAST, November 29, 2016, 17:08. INDICATIONS : Fever. IV CONTRAST: 75 cc Omnipaque 350 (iohexol) IV ORAL CONTRAST: No oral contrast ingested. RADIATION DOSE: 6.91 CTDIvol (mGy) MEDICAL HISTORY : Cardiovascular disease. Gastroesophageal reflux disease. Carcinoma, prostate. SURGICAL HISTORY : CABG Pacemaker. ENCOUNTER: Initial ACUITY: 1 day PAIN SCALE: 0/10 LOCATION: Abdomen. TECHNIQUE: Volumetric scanning of the abdomen and pelvis was performed. Using automated exposure control and ad justment of the mA and/or kV according to patient size, radiation dose was kept as low as reasonably achievable to obtain optimal diagnostic quality images. DICOM format image data is available electro nically for review and comparison. FINDINGS: LOWER LUNGS: The visualized lower lungs are clear. LIVER: Homogeneous density without lesion. There is no dilation of the biliary tree. No calcified gallston es. SPLEEN: Normal size without lesion. PANCREAS: Within normal limits. KIDNEYS: Normal in size and shape. There is no mass, stone or hydronephrosis. ADRENAL GLANDS: Within normal limits. VASCULAR: There is no aortic aneurysm. BOWEL/MESENTERY: The stomach, small bowel, and colon demonstrate no acute abnormality. There is no free intraperitone al air or fluid. ABDOMINAL WALL: Within normal limits. RETROPERITONEUM: There is no lymphadenopathy. BLADDER: No wall thickening or mass. REPRODUCTIVE: Prostatic seeds. INGUINAL: There is no lymphadenopathy. Small bilateral fat containing inguinal hernias. MUSCULOSKELETAL: Degenerative changes lower lumbar spine. CONCLUSION: 1. No acute inflammatory process. 2. No abscess. Jonny Mancuso MD on July 14, 2017 at 0:21 Board Certified Radiologist. This report was verified electronically.
[2017-07-14 00:37] VITALS: BP 136/70; PULSE 61; RESP 16; O2SAT 97
--- NOTE | 2017-07-14 23:16 | EKG ---
Date Performed: 07/13/2017 Time Performed: 22:12:05 PTAGE: 71 years EKG: ELECTRONIC ATRIAL PACEMAKER BORDERLINE LEFT AXIS DEVIATION ABNORMAL RHYTHM ECG PREVIOUS TRACING : 10/28/2015 12.19 Compared to prior tracing no significant change DOCTOR: Jesus Lin Interpretating Date/Time 07/14/2017 23:16:37
== END 2017-07-14 02:05 | disposition home or self-care (01) ==
LOC: NEPE 21:50
DX: R41.82 Altered mental status, unspecified (principal); R50.9 Fever, unspecified; R51 Headache; R26.89 Other abnormalities of gait and mobility; R53.1 Weakness; R94.31 Abnormal electrocardiogram [ECG] [EKG]; I10 Essential (primary) hypertension; E03.9 Hypothyroidism, unspecified; F03.90 Unspecified dementia, unspecified severity, without behavioral disturbance, psychotic disturbance, mood disturbance, and anxiety; E78.00 Pure hypercholesterolemia, unspecified; Z79.01 Long term (current) use of anticoagulants; Z87.39 Personal history of other diseases of the musculoskeletal system and connective tissue; Z86.59 Personal history of other mental and behavioral disorders; Z85.46 Personal history of malignant neoplasm of prostate; Z87.19 Personal history of other diseases of the digestive system
CPT/HCPCS: 70450; 71010; 74177; 80053; 81001; 83605; 83690; 84484; 85025; 85610; 85730; 87804; 93005; 99285; P9612; Q9967

== ENCOUNTER 2017-07-14 06:56 | Inpatient (IN) | payer MEDICARE, OTHER ==
[2017-07-14] VITALS (8 sets, daily range): BP systolic 128–170; BP diastolic 62–91; PULSE 59–77; RESP 16–19; TEMP 97.4–98.8; O2SAT 95–100
[2017-07-14] MEDS ORDERED: SODIUM CHLOR 0.9% 1000 ML INJ 1,000 ML IV ONE (07:15)
--- NOTE | 2017-07-14 07:29 | PD ---
HPI Chief Complaint: Altered Mental Status Time Seen by Provider: 06:58 Travel History International Travel<30 days: No Contact w/Intl Traveler<30days: No Traveled to known affect area: No History of Present Illness HPI 71-year-old male was brought in by EMS from home for altered mental status. Patient was seen in emergency room last night for altered mental status for the past 2-3 days. Patient has history of dementia and was not able to provide much information. Patient's states that patient started having shuffling gait and generalized weakness for the past 3 days. Patient has been more confused and harder to have a conversation with. Patient's states that no coughing congestion, no nausea vomiting or diarrhea. Patient has history of CAD status post CABG and pacemaker placement. Patient has history hypothyroidism, dementia, GERD and prostate cancer. Patient also has history anxiety depression. Patient had blood work, CT scan of the brain and abdomen pelvis which were within normal limit. Patient was offered admission however patient's elected take him home. Patient's states that patient was found unresponsive this morning. EMS was called. Patient was found to have pinpoint pupil. Narcan 0.4 mg IV given. Patient was reported with minimal improvement of mental status for about 2 minutes. Patient was found to have bradycardia. Patient was transferred to the ED for evaluation. PFSH Past Medical History Hx Anticoagulant Therapy: Yes Arthritis: Yes Blood Disorders: No Anxiety: Yes Depression: Yes Cancer: Yes (PROSTATE) Cardiovascular Problems: Yes High Cholesterol: Yes Dementia: Yes Diminished Hearing: No Endocrine: No Gastrointestinal Disorders: Yes (GERD) GERD: Yes Hypertension: Yes Implanted Vascular Access Dvce: No Neurologic: Yes (DEMENTIA) Psychiatric: Yes Immunizations Current: Yes Thyroid Disease: Yes (HYPOTHYROIDISM) Past Surgical History Cardiac Surgery: Yes (PACEMAKER (2016)) Coronary Artery Bypass Graft: Yes (X4) Other Surgery: No Social History Alcohol Use: No Tobacco Use: No Substance Use: No Allergies-Medications (Allergen,Severity, Reaction): Coded Allergies: No Known Allergies (Verified , 07/02/16) Reported Meds & Prescriptions Reported Meds & Active Scripts Active Reported Claritin (Loratadine) 10 Mg Cap 10 Mg PO DAILY Alendronate (Alendronate Sodium) 70 Mg Tab 70 Mg PO Q7D Metoprolol Tartrate 25 Mg Tab 25 Mg PO BID Donepezil 10 Mg Tab 10 Mg PO HS Clopidogrel (Clopidogrel Bisulfate) 75 Mg Tab 75 Mg PO DAILY Losartan (Losartan Potassium) 50 Mg Tab 50 Mg PO DAILY Namenda Xr (Memantine) 28 Mg Caper 28 Mg PO DAILY Fish Oil + D3 (Fish Oil-Cholecalciferol) 1,200-1,000 Mg-Unit Cap 1 Cap PO DAILY Famotidine 20 Mg Tab 20 Mg PO DAILY Alprazolam 0.25 Mg Tab 0.25 Mg PO Q6H PRN Sertraline (Sertraline HCl) 50 Mg Tab 50 Mg PO DAILY Levothyroxine (Levothyroxine Sodium) 50 Mcg Tab 50 Mcg PO DAILY Allopurinol 300 Mg Tab 300 Mg PO DAILY Simvastatin 20 Mg Tab 10 Mg PO DAILY Review of Systems ROS Limitations: Altered Mental Status General / Constitutional: No: Fever Eyes: No: Visual changes HENT: No: Headaches Cardiovascular: No: Chest Pain or Discomfort Respiratory: No: Shortness of Breath Gastrointestinal: No: Abdominal Pain Genitourinary: No: Dysuria Musculoskeletal: No: Pain Skin: No Rash Neurologic: No: Weakness Psychiatric: No: Depression Endocrine: No: Polydipsia Hematologic/Lymphatic: No: Easy Bruising Physical Exam Narrative GENERAL: Well-nourished, well-developed patient. SKIN: Focused skin assessment warm/dry. HEAD: Normocephalic. EYES: No scleral icterus. No injection or drainage. Pupils 2 mm equal reactive. NECK: Supple, trachea midline. No JVD or lymphadenopathy. CARDIOVASCULAR: Regular rate and rhythm without murmurs, gallops, or rubs. RESPIRATORY: Breath sounds equal bilaterally. No accessory muscle use. GASTROINTESTINAL: Abdomen soft, non-tender, nondistended. MUSCULOSKELETAL: No cyanosis, or edema. BACK: Nontender without obvious deformity. No CVA tenderness. Neurologic exam: Patient is lethargic. Patient opens eyes on command. Patient can state his name. Patient does not move any extremity on command however respond to painful stimuli and withdraw with pain. Distal reflexes 1+ and equal. Negative Babinski. Data Data Last Documented VS Vital Signs Date Time Temp Pulse Resp B/P (MAP) Pulse Ox O2 Delivery O2 Flow Rate FiO2 07/14/17 07:50 60 16 138/62 (87) 99 Nasal Cannula 4.00 07/14/17 06:58 98.0 Orders Orders Electrocardiogram (07/14/17 07:06) Complete Blood Count With Diff (07/14/17 07:06) Comprehensive Metabolic Panel (07/14/17 07:06) Creatine Kinase (Cpk) (07/14/17 07:06) Troponin I (07/14/17 07:06) B-Type Natriuretic Peptide (07/14/17 07:06) Prothrombin Time / Inr (Pt) (07/14/17 07:06) Act Partial Throm Time (Ptt) (07/14/17 07:06) Blood Culture (07/14/17 07:06) Urinalysis - C+S If Indicated (07/14/17 07:06) Thyroid Stimulating Hormone (07/14/17 07:06) Chest, Single Ap (07/14/17 07:06) Iv Access Insert/Monitor (07/14/17 07:06) Ecg Monitoring (07/14/17 07:06) Oximetry (07/14/17 07:06) Lactic Acid Sepsis Protocol (07/14/17 07:06) Sodium Chlor 0.9% 1000 Ml Inj (Ns 1000 M (07/14/17 07:15) Vancomycin Inj (Vancomycin Inj) (07/14/17 07:30) Piperacil-Tazo 3.375 Gm Premix (Zosyn 3. (07/14/17 07:30) Mri Brain W/O Contrast (07/14/17 08:43) Mra Brain W/O Contrast (Cow) (07/14/17 08:43) Mra Carotids W Contrast (07/14/17 08:43) Labs Laboratory Tests Test 07/14/17 07:05 07/14/17 07:15 Prothrombin Time 11.0 SEC Prothromb Time International Ratio 1.0 RATIO Activated Partial Thromboplast Time 23.8 SEC White Blood Count 5.0 TH/MM3 Red Blood Count 3.47 MIL/MM3 Hemoglobin 10.3 GM/DL Hematocrit 31.0 % Mean Corpuscular Volume 89.4 FL Mean Corpuscular Hemoglobin 29.6 PG Mean Corpuscular Hemoglobin Concent 33.2 % Red Cell Distribution Width 14.5 % Platelet Count 179 TH/MM3 Mean Platelet Volume 8.1 FL Neutrophils (%) (Auto) 70.2 % Lymphocytes (%) (Auto) 12.9 % Monocytes (%) (Auto) 14.8 % Eosinophils (%) (Auto) 1.2 % Basophils (%) (Auto) 0.9 % Neutrophils # (Auto) 3.5 TH/MM3 Lymphocytes # (Auto) 0.7 TH/MM3 Monocytes # (Auto) 0.7 TH/MM3 Eosinophils # (Auto) 0.1 TH/MM3 Basophils # (Auto) 0.0 TH/MM3 CBC Comment DIFF FINAL Differential Comment Blood Urea Nitrogen 11 MG/DL Creatinine 1.32 MG/DL Random Glucose 106 MG/DL Total Protein 7.0 GM/DL Albumin 4.0 GM/DL Calcium Level 8.9 MG/DL Alkaline Phosphatase 98 U/L Aspartate Amino Transf (AST/SGOT) 20 U/L Alanine Aminotransferase (ALT/SGPT) 23 U/L Total Bilirubin 0.5 MG/DL Sodium Level 130 MEQ/L Potassium Level 4.1 MEQ/L Chloride Level 98 MEQ/L Carbon Dioxide Level 24.4 MEQ/L Anion Gap 8 MEQ/L Estimat Glomerular Filtration Rate 53 ML/MIN Lactic Acid Level 1.0 mmol/L Total Creatine Kinase 97 U/L Troponin I LESS THAN 0.02 NG/ML B-Type Natriuretic Peptide 26 PG/ML Thyroid Stimulating Hormone 3rd Gen 4.320 uIU/ML MDM Medical Decision Making Medical Screen Exam Complete: Yes Emergency Medical Condition: Yes Interpretation(s) Last Impressions Chest X-Ray 07/14/17 0706 Signed Impressions: Service Date/Time: Friday, July 14, 2017 07:30 - CONCLUSION: Underinflated examination with atelectasis at the lung bases. Otherwise, no acute finding is identified. Santy Hernadez MD 8:45 AM. CBC within normal limit. Sodium 1:30. Creatinine 1.32. Lactic acid 1.0. Cardiac enzymes are normal. BNP 26. TSH 4.32. UA done last night was negative. Differential Diagnosis Differential diagnosis including sepsis, TIA, CVA, electrolyte imbalance, dehydration, [place]. Narrative Course 71-year-old male with altered mental status. Patient had fever last night during emergency room visit last night. Patient was discharged last night. Workup was negative last night. Patient was found unresponsive this morning. Patient was bradycardic and has blood pressure this morning. Normal saline solution 1 L IV bolus. Vancomycin 1 g IV. Zosyn 3.375 g IV. Diagnosis Primary Impression: Altered mental status Qualified Codes: R41.0 - Disorientation, unspecified Admitting Information Admitting Physician Requests: Admit Norberto Donahue MD Jul 14, 2017 07:29
[2017-07-14] MEDS ORDERED: VANCOMYCIN INJ 1,000 MG in SODIUM CHLOR 0.9% 250 ML INJ 250 ML IV ONE (07:30)
[2017-07-14] MEDS ORDERED: PIPERACIL-TAZO 3.375 GM PREMIX 50 ML IV ONE (07:30)
--- NOTE | 2017-07-14 07:42 | RADRPT ---
EXAM DATE/TIME: 07/14/2017 07:30 [facility] COMPARISON: CHEST SINGLE AP, July 13, 2017, 22:25. INDICATIONS : Shortness of breath. MEDICAL HISTORY : Gastroesophageal reflux disease. Hypertension SURGICAL HISTORY : Pacemaker. CABG. ENCOUNTER: Initial ACUITY: 1 day PAIN SCORE: Non-responsive. LOCATION: Bilateral chest FINDINGS: Portable AP view of the chest demonstrates cardiac silhouette size at the upper limits for normal in this patient post median sternotomy. Left chest wall cardiac pacing device is present. Lungs are unde rinflated. There is atelectasis at the lung bases. No effusion or pneumothorax is identified. The bon es and soft tissues demonstrate no acute finding. CONCLUSION: Underinflated examination with atelectasis at the lung bases. Otherwise, no acute finding is identifi ed. Santy Hernadez MD on July 14, 2017 at 7:40 Board Certified Radiologist. This report was verified electronically.
[2017-07-14 07:44] LABS: AUTOMATED NEUTROPHIL # 3.5 TH/MM3 (1.8-7.7); BASOPHIL % 0.9 % (0.0-2.0); EOSINOPHIL # 0.1 TH/MM3 (0-0.4); EOSINOPHIL % 1.2 % (0.0-4.0); HEMOGLOBIN 10.3 GM/DL (13.0-17.0); LYMPH % 12.9 % (9.0-44.0); LYMPHOCYTE # 0.7 TH/MM3 (1.0-4.8); MEAN CELL VOLUME 89.4 FL (80.0-100.0); MEAN CORPUSCULAR HEMOGLOBIN 29.6 PG (27.0-34.0); MEAN CORPUSCULAR HGB CONC 33.2 % (32.0-36.0); MEAN PLATELET VOLUME 8.1 FL (7.0-11.0); MONO % 14.8 % (0.0-8.0); MONOCYTE # 0.7 TH/MM3 (0-0.9); NEUT % 70.2 % (16.0-70.0); PLATELET COUNT 179 TH/MM3 (150-450); RED BLOOD COUNT 3.47 MIL/MM3 (4.50-5.90); RED CELL DISTRIBUTION WIDTH 14.5 % (11.6-17.2)
[2017-07-14 08:05] LABS: ALT (GPT) 23 U/L (12-78)
[2017-07-14 08:08] LABS: AST (GOT) 20 U/L (15-37); BICARBONATE 24.4 MEQ/L (21.0-32.0); BLOOD UREA NITROGEN 11 MG/DL (7-18); CALCIUM 8.9 MG/DL (8.5-10.1); CHLORIDE 98 MEQ/L (98-107); CREATININE 1.32 MG/DL (0.60-1.30); GLOMERULAR FILTRATION RATE 53 ML/MIN (>89); GLUCOSE,RANDOM 106 MG/DL (74-106); SODIUM (NA) 130 MEQ/L (136-145)
[2017-07-14 08:14] LABS: ALKALINE PHOSPHATASE 98 U/L (45-117); TOTAL BILIRUBIN ADULT 0.5 MG/DL (0.2-1.0); TROPONIN I LESS THAN 0.02 NG/ML (0.02-0.05)
[2017-07-14] MEDS ORDERED: BISACODYL 10 MG SUPP RECTAL PRN (09:30)
[2017-07-14] MEDS ORDERED: NALOXONE HCL 0.4 MG/ML AMP IV PUSH PRN (09:30)
[2017-07-14] MEDS ORDERED: MAGNESIUM HYDROXIDE SUSP 30 ML CUP PO PRN (09:30)
[2017-07-14] MEDS ORDERED: ONDANSETRON HCL 4 MG/2 ML VIAL IVP PRN (09:30)
[2017-07-14] MEDS ORDERED: SODIUM CHLORIDE 0.9% FLUSH 10 ML FLUSH IV FLUSH PRN (09:30)
[2017-07-14] MEDS ORDERED: LACTULOSE SYRUP 20 GM/30 ML CUP PO PRN (09:30)
[2017-07-14] MEDS ORDERED: SENNOSIDES 8.6 MG TAB PO PRN (09:30)
[2017-07-14] MEDS: SODIUM CHLOR 0.9% 1000 ML INJ 1,000 ML IV SCH ×2 (13:00→20:00)
--- NOTE | 2017-07-14 13:14 | HHI.HP ---
[facility] Mireille Zepeda MD Admission Diagnosis altered mental status. Rule out sepsis. Diagnoses: Chief Complaint: passed out this morning. More confused, shuffling gait. Travel History International Travel<30 Days: No Contact w/Intl Traveler <30 Da: No Traveled to Known Affected Are: No History of Present Illness Mr. Hendricks is a 71-year-old male with a history of Alzheimer's dementia who presents to the emergency department today due to increased confusion, shuffling gait. History is mostly taken from patient's present at bedside. On 07/10/2017, patient was noted to be more confused than his baseline. Within 2 days he also had shuffling gait, headache. He could not keep his legs straight. He was so confused that he would go to the bathroom take all his clothes off and urinated on the floor. He had a temperature of 100.9F in the last few days patient was evaluated in the emergency department yesterday. However the workup was within normal limit and patient went home. This morning, however, patient was found unresponsive and subsequently EMS was called by his . At the time of this interview, patient is alert and awake but heavily confused. Per patient's , no chest pain, shortness of breath, abdominal pain or cough. Review of Systems Except as stated in HPI: all other systems reviewed are Neg Past Family Social History Past Medical History Coronary artery disease status post CABG 4 in 2014 Pacemaker placement 2016 Prostate cancer patient received radiation On exam of dementia Hypertension Past Surgical History CABG 4 2014 No other major surgery. Reported Medications Claritin (Loratadine) 10 Mg Cap 10 Mg PO DAILY Alendronate (Alendronate Sodium) 70 Mg Tab 70 Mg PO Q7D Metoprolol Tartrate 25 Mg Tab 25 Mg PO BID Donepezil 10 Mg Tab 10 Mg PO HS Clopidogrel (Clopidogrel Bisulfate) 75 Mg Tab 75 Mg PO DAILY Losartan (Losartan Potassium) 50 Mg Tab 50 Mg PO DAILY Namenda Xr (Memantine) 28 Mg Caper 28 Mg PO DAILY Fish Oil + D3 (Fish Oil-Cholecalciferol) 1,200-1,000 Mg-Unit Cap 1 Cap PO DAILY Famotidine 20 Mg Tab 20 Mg PO DAILY Alprazolam 0.25 Mg Tab 0.25 Mg PO Q6H PRN Sertraline (Sertraline HCl) 50 Mg Tab 50 Mg PO DAILY Levothyroxine (Levothyroxine Sodium) 50 Mcg Tab 50 Mcg PO DAILY Allopurinol 300 Mg Tab 300 Mg PO DAILY Simvastatin 20 Mg Tab 10 Mg PO DAILY Allergies: Coded Allergies: No Known Allergies (Verified , 07/02/16) Family History Mother had Alzheimer's dementia Social History Patient does not smoke or use illicit drugs. He drinks beer occasionally. Physical Exam Vital Signs Vital Signs Date Time Temp Pulse Resp B/P (MAP) Pulse Ox O2 Delivery O2 Flow Rate FiO2 07/14/17 12:24 97.6 59 17 144/69 (94) 100 07/14/17 10:30 07/14/17 09:50 98 Nasal Cannula 4.00 07/14/17 09:37 65 16 159/87 (111) 98 Nasal Cannula 4.00 07/14/17 07:50 60 16 138/62 (87) 99 Nasal Cannula 4.00 07/14/17 07:39 98 Nasal Cannula 4.00 07/14/17 07:07 92 Nasal Cannula 2.00 07/14/17 07:07 90 Room Air 07/14/17 07:02 67 16 95 Room Air 07/14/17 06:58 98.0 65 16 128/73 (91) 95 Physical Exam GENERAL: This is a well-nourished, well-developed patient, in no apparent distress. Alert, awake but oriented to person only. SKIN: No rashes, ecchymoses or lesions. Warm and dry. HEAD: Atraumatic. Normocephalic. No temporal or scalp tenderness. EYES: Pupils equal round and reactive. No injection or drainage. ENT: Nose without bleeding, purulent drainage or septal hematoma. Airway patent. NECK: Trachea midline. No lymphadenopathy. Supple, nontender, no meningeal signs. CARDIOVASCULAR: Regular rate and rhythm without murmurs, gallops, or rubs. No JVD. RESPIRATORY: Clear to auscultation. Breath sounds equal bilaterally. No wheezes , rales, or rhonchi. GASTROINTESTINAL: Abdomen soft, non-tender, nondistended. No guarding. MUSCULOSKELETAL: Extremities without clubbing, cyanosis, or edema. NEUROLOGICAL: Awake and alert. Cranial nerves II through XII intact. No focal neurological deficits. Normal speech. Laboratory Laboratory Tests Test 07/14/17 07:05 07/14/17 07:15 Prothrombin Time 11.0 Prothromb Time International Ratio 1.0 Activated Partial Thromboplast Time 23.8 White Blood Count 5.0 Red Blood Count 3.47 Hemoglobin 10.3 Hematocrit 31.0 Mean Corpuscular Volume 89.4 Mean Corpuscular Hemoglobin 29.6 Mean Corpuscular Hemoglobin Concent 33.2 Red Cell Distribution Width 14.5 Platelet Count 179 Mean Platelet Volume 8.1 Neutrophils (%) (Auto) 70.2 Lymphocytes (%) (Auto) 12.9 Monocytes (%) (Auto) 14.8 Eosinophils (%) (Auto) 1.2 Basophils (%) (Auto) 0.9 Neutrophils # (Auto) 3.5 Lymphocytes # (Auto) 0.7 Monocytes # (Auto) 0.7 Eosinophils # (Auto) 0.1 Basophils # (Auto) 0.0 CBC Comment DIFF FINAL Differential Comment Blood Urea Nitrogen 11 Creatinine 1.32 Random Glucose 106 Total Protein 7.0 Albumin 4.0 Calcium Level 8.9 Alkaline Phosphatase 98 Aspartate Amino Transf (AST/SGOT) 20 Alanine Aminotransferase (ALT/SGPT) 23 Total Bilirubin 0.5 Sodium Level 130 Potassium Level 4.1 Chloride Level 98 Carbon Dioxide Level 24.4 Anion Gap 8 Estimat Glomerular Filtration Rate 53 Lactic Acid Level 1.0 Total Creatine Kinase 97 Troponin I LESS THAN 0.02 B-Type Natriuretic Peptide 26 Thyroid Stimulating Hormone 3rd Gen 4.320 Date/Time Source Procedure Growth Status 07/14/17 07:20 Blood Peripheral Aerobic Blood Culture Pending Received 07/14/17 07:20 Blood Peripheral Anaerobic Blood Culture Pending Received Result Diagram: 07/14/1715 07/14/17714 Imaging Last Impressions Chest X-Ray 07/14/17705 Signed Impressions: Service Date/Time: Friday, July 14, 2017 07:30 - CONCLUSION: Underinflated examination with atelectasis at the lung bases. Otherwise, no acute finding is identified. MD Kwasi Urias VTE Risk Assessment Caprini VTE Risk Assessment: Mod/High Risk (score >= 2) Caprini Risk Assessment Model Point Value = 1 Point Value = 2 Point Value = 3 Point Value = 5 Age 41-60 Minor surgery BMI > 25 kg/m2 Swollen legs Varicose veins or History of unexplained or recurrent spontaneous Oral contraceptives or hormone replacement Sepsis (< 1 month) Serious lung disease, including pneumonia (< 1 month) Abnormal pulmonary function Acute myocardial infarction Congestive heart failure (< 1 month) History of inflammatory bowel disease Medical patient at bed rest Age 61-74 Arthroscopic surgery Major open surgery (> 45 min) Laparoscopic surgery (> 45 min) Malignancy Confined to bed (> 72 hours) Immobilizing plaster cast Central venous access Age >= 75 History of VTE Family history of VTE Factor V Leiden Prothrombin [id number] Lupus anticoagulant Anticardiolipin antibodies Elevated serum homocysteine Heparin-induced thrombocytopenia Other congenital or acquired thrombophilia Stroke (< 1 month) Elective arthroplasty Hip, pelvis, or leg fracture Acute spinal cord injury (< 1 month) Prophylaxis Regimen Total Risk Factor Score Risk Level Prophylaxis Regimen 0-1 Low Early ambulation 2 Moderate Order ONE of the following: *Sequential Compression Device (SCD) *Heparin 5000 units SQ BID 3-4 Higher Order ONE of the following medications: *Heparin 5000 units SQ TID *Enoxaparin/Lovenox 40 mg SQ daily (WT < 150 kg, CrCl > 30 mL/min) *Enoxaparin/Lovenox 30 mg SQ daily (WT < 150 kg, CrCl > 10-29 mL/min) *Enoxaparin/Lovenox 30 mg SQ BID (WT < 150 kg, CrCl > 30 mL/min) AND/OR *Sequential Compression Device (SCD) 5 or more Highest Order ONE of the following medications: *Heparin 5000 units SQ TID (Preferred with Epidurals) *Enoxaparin/Lovenox 40 mg SQ daily (WT < 150 kg, CrCl > 30 mL/min) *Enoxaparin/Lovenox 30 mg SQ daily (WT < 150 kg, CrCl > 10-29 mL/min) *Enoxaparin/Lovenox 30 mg SQ BID (WT < 150 kg, CrCl > 30 mL/min) AND *Sequential Compression Device (SCD) Assessment and Plan Assessment and Plan Mr. Hendricks is a 71 year old male with a history of dementia who presented to the ED after he was found unresponsive by his . Day prior to this admission , she brought him to the ED due to 5-6 day duration of increased confusion, shuffling gait. - Acute encephalopathy - Although he has dementia, apparently his degree of confusion is much more profound than he normally is. - No focal deficits. Patient is only oriented to himself. Follows commands partially but not quite consistently. - MRI studies are pending. - Will ask Neurology for an input. - Alzheimer's dementia - Will continue home medications. - Possible bradycardia - Does not appear to be related to patient's clinical symptoms. - I discussed with Cardiology, will consult them and also will request device interrogation. Patient has a [employer] pacemaker. - Hypertension - will continue losartan. Hold beta davy for now. Full code. Physician Certification 2 Midnight Certification Type: Admission for Inpatient Services Order for Inpatient Services The services are ordered in accordance with Medicare regulations or non- Medicare payer requirements, as applicable. In the case of services not specified as inpatient-only, they are appropriately provided as inpatient services in accordance with the 2-midnight benchmark. Estimated LOS (days): 2 days is the estimated time the patient will need to remain in the hospital, assuming treatment plan goals are met and no additional complications. Post-Hospital Plan: Home De Gomez DO Jul 14, 2017 13:14
--- NOTE | 2017-07-14 15:50 | PD.CONS ---
HPI Service Cardiology physicians Consult Requested By Dr Gomez Reason for Consult Syncope Primary Care Physician Mireille Zepeda MD History of Present Illness The patient is a 71 year old male known to our practice with a cardiac history of ASHD, SSS s/p PPM, HTN and HLD. Other notable history includes Alzheimer disease. The patient is only oriented to his first name. Information was obtained from medical records. The patient was brought to the ER yesterday for increased AMS and fever and discharged home. He was found unresponsive this morning. Noted to have pinpoint pupils that did not improve much with Narcan. Today, on evaluation, he is oriented only to his first name. Cannot have a conversation, easily distracted. Pending device interrogation and brain MRI. (Rosangela Willis) Review of Systems ROS Limitations: Altered Mental Status (Rosangela Willis) Past Family Social History Allergies: Coded Allergies: No Known Allergies (Verified , 07/02/16) Past Medical History See HPI Past Surgical History PPM 10/2015 CABG 2014 Heart cath 2014 Reported Medications Reported Meds & Active Scripts Active Reported Claritin (Loratadine) 10 Mg Cap 10 Mg PO DAILY Alendronate (Alendronate Sodium) 70 Mg Tab 70 Mg PO Q7D Metoprolol Tartrate 25 Mg Tab 25 Mg PO BID Donepezil 10 Mg Tab 10 Mg PO HS Clopidogrel (Clopidogrel Bisulfate) 75 Mg Tab 75 Mg PO DAILY Losartan (Losartan Potassium) 50 Mg Tab 50 Mg PO DAILY Namenda Xr (Memantine) 28 Mg Caper 28 Mg PO DAILY Fish Oil + D3 (Fish Oil-Cholecalciferol) 1,200-1,000 Mg-Unit Cap 1 Cap PO DAILY Famotidine 20 Mg Tab 20 Mg PO DAILY Alprazolam 0.25 Mg Tab 0.25 Mg PO Q6H PRN Sertraline (Sertraline HCl) 50 Mg Tab 50 Mg PO DAILY Levothyroxine (Levothyroxine Sodium) 50 Mcg Tab 50 Mcg PO DAILY Allopurinol 300 Mg Tab 300 Mg PO DAILY Simvastatin 20 Mg Tab 10 Mg PO DAILY Active Ordered Medications Current Medications Medications (Trade) Dose Ordered Sig/Beth Route Start Time Stop Time Status Last Admin Sodium Chloride 1,000 ml @ 100 mls/hr Q10H IV 07/14/17 10:00 07/14/17 13:00 (NS Flush) 2 ml UNSCH PRN IV FLUSH 07/14/17 09:30 (NS Flush) 2 ml BID IV FLUSH 07/14/17 21:00 (Tylenol) 650 mg Q4H PRN PO 07/14/17 09:30 (Zofran Inj) 4 mg Q6H PRN IVP 07/14/17 09:30 (Narcan Inj) 0.4 mg UNSCH PRN IV PUSH 07/14/17 09:30 (Sherrell-Colace) 1 tab BID PO 07/14/17 21:00 (Milk Of Magnesia Liq) 30 ml Q12H PRN PO 07/14/17 09:30 (Senokot) 17.2 mg Q12H PRN PO 07/14/17 09:30 (Dulcolax Supp) 10 mg DAILY PRN RECTAL 07/14/17 09:30 (Lactulose Liq) 30 ml DAILY PRN PO 07/14/17 09:30 Family History non contributory Social History Patient cannot provide information (Rosangela Willis) Physical Exam Vital Signs Vital Signs Date Time Temp Pulse Resp B/P (MAP) Pulse Ox O2 Delivery O2 Flow Rate FiO2 07/14/17 12:24 97.6 59 17 144/69 (94) 100 07/14/17 10:30 07/14/17 09:50 98 Nasal Cannula 4.00 07/14/17 09:37 65 16 159/87 (111) 98 Nasal Cannula 4.00 07/14/17 07:50 60 16 138/62 (87) 99 Nasal Cannula 4.00 07/14/17 07:39 98 Nasal Cannula 4.00 07/14/17 07:07 92 Nasal Cannula 2.00 07/14/17 07:07 90 Room Air 07/14/17 07:02 67 16 95 Room Air 07/14/17 06:58 98.0 65 16 128/73 (91) 95 Physical Exam GENERAL: Elderly man sitting in chair, NAD SKIN: Warm and dry. HEAD: Atraumatic. Normocephalic. EYES: Pupils equal and round. No scleral icterus. ENT: No nasal bleeding or discharge. NECK: Trachea midline. No JVD. CARDIOVASCULAR: Regular rate and rhythm. PPM RESPIRATORY: No accessory muscle use. Clear to auscultation. Breath sounds equal bilaterally. GASTROINTESTINAL: Abdomen soft, non-tender, nondistended. MUSCULOSKELETAL: Extremities without clubbing, cyanosis, or edema. No obvious deformities. NEUROLOGICAL: Oriented only to first name, follows simple directions PSYCHIATRIC: Appropriate mood and affect; insight and judgment normal. Laboratory Laboratory Tests Test 07/14/17 07:05 07/14/17 07:15 Prothrombin Time 11.0 Prothromb Time International Ratio 1.0 Activated Partial Thromboplast Time 23.8 White Blood Count 5.0 Red Blood Count 3.47 Hemoglobin 10.3 Hematocrit 31.0 Mean Corpuscular Volume 89.4 Mean Corpuscular Hemoglobin 29.6 Mean Corpuscular Hemoglobin Concent 33.2 Red Cell Distribution Width 14.5 Platelet Count 179 Mean Platelet Volume 8.1 Neutrophils (%) (Auto) 70.2 Lymphocytes (%) (Auto) 12.9 Monocytes (%) (Auto) 14.8 Eosinophils (%) (Auto) 1.2 Basophils (%) (Auto) 0.9 Neutrophils # (Auto) 3.5 Lymphocytes # (Auto) 0.7 Monocytes # (Auto) 0.7 Eosinophils # (Auto) 0.1 Basophils # (Auto) 0.0 CBC Comment DIFF FINAL Differential Comment Blood Urea Nitrogen 11 Creatinine 1.32 Random Glucose 106 Total Protein 7.0 Albumin 4.0 Calcium Level 8.9 Alkaline Phosphatase 98 Aspartate Amino Transf (AST/SGOT) 20 Alanine Aminotransferase (ALT/SGPT) 23 Total Bilirubin 0.5 Sodium Level 130 Potassium Level 4.1 Chloride Level 98 Carbon Dioxide Level 24.4 Anion Gap 8 Estimat Glomerular Filtration Rate 53 Lactic Acid Level 1.0 Total Creatine Kinase 97 Troponin I LESS THAN 0.02 B-Type Natriuretic Peptide 26 Thyroid Stimulating Hormone 3rd Gen 4.320 Date/Time Source Procedure Growth Status 07/14/17 07:20 Blood Peripheral Aerobic Blood Culture Pending Received 07/14/17 07:20 Blood Peripheral Anaerobic Blood Culture Pending Received (Rosangela Willis) Result Diagram: 07/14/1771407/14/17714 Imaging Last 72 hours Impressions Chest X-Ray 07/14/17705 Signed Impressions: Service Date/Time: Friday, July 14, 2017 07:30 - CONCLUSION: Underinflated examination with atelectasis at the lung bases. Otherwise, no acute finding is identified. Santy Hernadez MD (Rosangela Willis) Assessment and Plan Assessment and Plan Unwitnessed syncopal episode, found unresponsive. Likely exacerbated by infection. Patient had fever in the ER yesterday. SSS s/p PPM Carotid stenosis HTN HLD PLAN: Device interrogation. If concern for arrhythmia, we will proceed with further work up. 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 (Rosangela Willis) Assessment and Plan The exam, history, and the medical decision-making described in the above note were completed with the assistance of the mid-level provider. I reviewed and agree with the findings presented. I attest that I had a [id number] encounter with the patient on the same day, and personally performed and documented my assessment and findings in the medical record Agree with monitoring pt, discussed with pts family. Pacemaker check organized with [employer] pacer rep to look for pacer problems or arrhythmias. (Hannah Mccullough MD) Rosangela Willis Jul 14, 2017 15:50 Hannah Mccullough MD Jul 15, 2017 10:02
[2017-07-14] MEDS ORDERED: TEMAZEPAM 7.5 MG CAP PO PRN (16:30)
[2017-07-14] MEDS ORDERED: LORazepam 2 MG/ML VIAL IV PUSH ONE (17:15)
--- NOTE | 2017-07-14 17:40 | RADRPT ---
EXAM DATE/TIME: 07/14/2017 17:10 [facility] COMPARISON: No previous studies available for comparison. INDICATIONS : Altered mental status. MEDICAL HISTORY : Dementia. Carcinoma, prostate. Hypertension. SURGICAL HISTORY : CABG Pacemaker ENCOUNTER: Initial ACUITY: 1 day PAIN SCORE: 0/10 LOCATION: cranial Please note a normal MRA of the brain does not entirely exclude the possibility of a small aneurysm, nor the possibility of distal intracranial vessel disease. TECHNIQUE: 3D time of flight MRA was performed. Source images, multiplanar STS MIP, and 3D volume MIP reconstru ctions were reviewed. FINDINGS: There is excellent visualization of the major intracranial arteries out to the second-order branch ve ssels. There is no evidence for aneurysm, vessel truncation or stenosis, and no evidence for vascula r malformation. The basilar artery supplied by the right vertebral artery. CONCLUSION: No acute disease. Bret Pereira Jr., MD on July 14, 2017 at 17:35 Board Certified Radiologist. This report was verified electronically.
--- NOTE | 2017-07-14 18:08 | RADRPT ---
EXAM DATE/TIME: 07/14/2017 17:10 [facility] COMPARISON: MRA BRAIN W/O CONTRAST, July 14, 2017, 17:10. CT BRAIN W/O CONTRAST, July 13, 2017, 23:01. INDICATIONS : Altered mental status. CONTRAST: 17 cc Omniscan (gadodiamide) IV MEDICAL HISTORY : Dementia. Carcinoma, prostate. Hypertension. SURGICAL HISTORY : CABG Pacemaker. ENCOUNTER: Initial ACUITY: 1 day PAIN SCORE: 0/10 LOCATION: cranial TECHNIQUE: Multiplanar, multisequence MRI of the brain was performed both prior to and following the administrat ion of paramagnetic contrast. FINDINGS: CEREBRUM: The ventricles are normal for age. No evidence of midline shift, mass lesion, hemorrhage or acute in farction. No extraaxial fluid collections are seen. The pituitary gland and suprasellar cistern are normal in configuration. WHITE MATTER: No significant signal abnormalities are seen in the white matter. POSTERIOR FOSSA: The cerebellum and brainstem are intact. The 4th ventricle is midline. The cerebellopontine angle is unremarkable. The cerebellar tonsils are normal in position. DIFFUSION IMAGING: No focal areas of restricted diffusion are seen. No evidence of acute infarction. EXTRACRANIAL: The visualized portions of the orbits and paranasal sinuses are unremarkable. POST-CONTRAST: No abnormal areas of parenchymal or dural enhancement. No evidence of blood-brain barrier breakdown. CONCLUSION: Normal examination for a patient of this age. Ant Campbell MD on July 14, 2017 at 18:05 Board Certified Radiologist. This report was verified electronically.
[2017-07-14] MEDS ORDERED: GADODIAMIDE PF 287 MG/ML 20 ML VIAL (for RAD MRI) IVCONTRAST ONE (18:26)
--- NOTE | 2017-07-14 18:36 | RADRPT ---
EXAM DATE/TIME: 07/14/2017 17:10 [facility] COMPARISON: CT BRAIN W/O CONTRAST, July 13, 2017, 23:01. MRA BRAIN W/O CONTRAST, July 14, 2017, 17:10. MR I BRAIN W & W/O CONTRAST, July 14, 2017, 17:10. INDICATIONS : Altered mental status. CONTRAST: 17 cc Omniscan (gadodiamide) IV MEDICAL HISTORY : Dementia. Carcinoma, prostate. Hypertension. SURGICAL HISTORY : CABG Pacemaker. ENCOUNTER: Initial ACUITY: 1 day PAIN SCORE: 0/10 LOCATION: cranial Percent stenosis is calculated using the diameter of the stenotic region over the diameter of the nor mal distal internal carotid artery. TECHNIQUE: Bolus infused MRA of the extracranial circulation was performed using a neurovascular coil. Post pro cessing was performed including rotating subvolume maximum intensity projections of each carotid judy ry, rotating full volume maximum intensity projections of both carotid arteries, sagittal and coronal sliding thin slab reformations of each carotid artery, and left oblique sliding thin slab reformatio n through the aortic arch to include the origin of the arch branch vessels. FINDINGS: AORTIC ARCH: There is a three vessel origin of the great vessels from the aorta. No evidence of ostial narrowing. RIGHT CAROTID: The common carotid artery is intact. The carotid bulb has a normal configuration without ulceration or narrowing. The internal carotid artery lumen is smooth without stenosis. The external carotid ar candelario is intact. LEFT CAROTID: The common carotid artery is intact. The carotid bulb has a normal configuration without ulceration or narrowing. The internal carotid artery lumen is smooth without stenosis. The external carotid ar candelario is intact. VERTEBRALS: The vertebral arteries have a symmetric diameter. No stenotic lesions are seen. CONCLUSION: Normal examination. Ant Campbell MD on July 14, 2017 at 18:32 Board Certified Radiologist. This report was verified electronically.
--- NOTE | 2017-07-14 19:31 | MB ---
cc: ELMER COUGHLIN MD DATE OF CONSULTATION 07/14/17 REASON FOR CONSULTATION The patient was brought to the hospital due to 5-6 day duration of worsening confusion, shuffling gait. He also had episodes of syncope. We are going to interrogate his pacemaker. MRI brain study is pending. HISTORY OF PRESENT ILLNESS Mr. Hendricks is a 71-year-old male with past medical history of Alzheimer's dementia who presented to the emergency department of [facility] due to increased confusion and shuffling gait. The patient is a poor historian, thus, the history is obtained from the medical records. The patient was noted on 07/10/2017 to be more confused than his baseline. He had a shuffling gait and headache. He also reportedly took all of his clothes and urinated on the floor in the bathroom and his bed. He had a temperature of 100.9. Workup was within normal. The patient was found unresponsive. During the encounter, there is no family at the bedside. The patient is awake, alert, oriented to person, not to place and time. He speaks in a soft voice and he follows commands "open and close your eyes, squeeze hands, wiggle toes". He could name objects. No visible convulsive activity, but there was a few myoclonic contractions in the upper extremities. REVIEW OF SYSTEMS A 12-point review of systems is negative except for what is stated in the HPI. PAST MEDICAL HISTORY Per medical records review 1. Coronary artery disease status post coronary artery bypass graft. 2. Pacemaker placement 2015. 3. Prostate cancer status post radiation 4. Dementia, 5. Hypertension. PAST SURGICAL HISTORY Coronary artery bypass graft times four. MEDICATIONS Current, 1. Alendronate 2. Metoprolol. 3. Donezapril 4. Clopidigrel. 5. Losartan 6. Namenda 7. Famotidine. 8. Alprazolam. 9. Sertraline. 10. Levothyroxine. 11. Allopurinol. 12. Simvastatin. ALLERGIES No known allergies. FAMILY HISTORY Mother with Alzheimer's dementia. SOCIAL HISTORY As per chart review, no smoking or illicit drug abuse. He drinks beer occasionally. PHYSICAL EXAMINATION GENERAL: Awake, alert, poor historian not in apparent distress, pleasantly demented. HEENT: Atraumatic, normocephalic. Intact hearing. Intact vision. NECK: Soft, supple. No signs of meningeal irritation. CARDIOVASCULAR: Regular rate and rhythm. RESPIRATORY: Clear to auscultation GASTROINTESTINAL: Soft, nontender MUSCULOSKELETAL: Moves four extremities. No clubbing or cyanosis. NEUROLOGIC: Awake, alert, oriented to person, not to time or place. Speaks with a soft voice. Intact naming, poor comprehension and judgment. Positive Myerson sign. Cranial nerves are grossly intact. Motor system examination unable to accurately assess the muscle strength because of the lack of the cooperation due to the clinical condition. There is rigidity with mild cogwheeling in the bilateral upper and lower extremities with intermittent myoclonus in UE. Reflexes 1+ bilateral symmetrical. Plantars are bilaterally downgoing. Cerebellar functions unable to assess due to the condition of the patient. LABORATORY DATA WBC 5, hemoglobin 10.3, sodium 130, potassium 4.1, creatinine 1.32, TSH 4.32. IMAGING STUDIES Unavailable DIAGNOSTIC IMPRESSION 1. History of Alzheimer's disease 2. Encephalopathy. 3. Pacemaker 4. Hypertension. 5. Coronary artery disease status post coronary artery bypass graft PLAN 1. Neuro checks q. one hourly. 2. Fall precautions. 3. MRI brain without contrast. 4. Supportive medical therapy for hyponatremia and hypothyroidism. 5. DVT prophylaxis. 6. TIA prophylaxis. 7. Continue Aricept and Namenda at current home doses. Thank you for the opportunity to participate in the care of your patient. MD LYNDON Gutierrez/ /3:46 PM /7:14 PM ESPERANZA
[2017-07-14] MEDS: DOCUSATE SODIUM 50 MG/SENNA 8.6 MG TAB PO SCH ×2 (20:54→20:57)
[2017-07-14] MEDS: SODIUM CHLORIDE 0.9% FLUSH 10 ML FLUSH IV FLUSH SCH (20:54)
--- NOTE | 2017-07-14 23:09 | EKG ---
Date Performed: 07/14/2017 Time Performed: 07:04:27 PTAGE: 71 years EKG: ELECTRONIC ATRIAL PACEMAKER BORDERLINE LEFT AXIS DEVIATION NONSPECIFIC T-WAVE ABNORMALITY A BNORMAL RHYTHM ECG PREVIOUS TRACING : 07/13/2017 22.12 Compared to prior tracing no significant change DOCTOR: Jesus Lin Interpretating Date/Time 07/14/2017 23:08:49
[2017-07-15] VITALS (9 sets, daily range): BP systolic 134–165; BP diastolic 67–89; PULSE 66–81; RESP 16–20; TEMP 97.3–99.8; O2SAT 93–98
[2017-07-15] MEDS: ACETAMINOPHEN 325 MG TAB PO PRN (04:32)
[2017-07-15] MEDS: SODIUM CHLOR 0.9% 1000 ML INJ 1,000 ML IV SCH ×3 (04:33→23:48)
[2017-07-15] MEDS: LEVOTHYROXINE SODIUM 50 MCG TAB PO SCH (04:33)
[2017-07-15 07:07] LABS: AUTOMATED NEUTROPHIL # 3.7 TH/MM3 (1.8-7.7); BASOPHIL % 0.6 % (0.0-2.0); EOSINOPHIL % 0.7 % (0.0-4.0); HEMOGLOBIN 9.9 GM/DL (13.0-17.0); LYMPH % 11.9 % (9.0-44.0); LYMPHOCYTE # 0.6 TH/MM3 (1.0-4.8); MEAN CELL VOLUME 89.1 FL (80.0-100.0); MEAN CORPUSCULAR HEMOGLOBIN 30.5 PG (27.0-34.0); MEAN CORPUSCULAR HGB CONC 34.3 % (32.0-36.0); MEAN PLATELET VOLUME 7.5 FL (7.0-11.0); MONO % 13.8 % (0.0-8.0); MONOCYTE # 0.7 TH/MM3 (0-0.9); PLATELET COUNT 175 TH/MM3 (150-450); RED BLOOD COUNT 3.25 MIL/MM3 (4.50-5.90); RED CELL DISTRIBUTION WIDTH 14.9 % (11.6-17.2); WHITE BLOOD COUNT 5.1 TH/MM3 (4.0-11.0)
[2017-07-15 07:36] LABS: BICARBONATE 21.7 MEQ/L (21.0-32.0)
[2017-07-15 07:44] LABS: CALCIUM 8.2 MG/DL (8.5-10.1); CREATININE 0.98 MG/DL (0.60-1.30); FREE T3 1.83 PG/ML (2.18-3.98); FREE T4 1.04 NG/DL (0.76-1.46)
[2017-07-15] MEDS: DOCUSATE SODIUM 50 MG/SENNA 8.6 MG TAB PO SCH ×2 (08:47→21:00)
[2017-07-15] MEDS: LOSARTAN 50 MG TAB PO SCH (08:47)
[2017-07-15] MEDS: SODIUM CHLORIDE 0.9% FLUSH 10 ML FLUSH IV FLUSH SCH ×2 (09:00→21:00)
[2017-07-15] MEDS ORDERED: NON-FORMULARY DRUG (Memantine Er (Namenda Xr) 28 MG) PO SCH (09:00)
--- NOTE | 2017-07-15 09:52 | HHI.PR ---
Subjective Remarks seen with daughter at bedside patient with dementia- baseline needs supervision on almost all ADLs but is interactive until few days ago - with decline in MS is baseline up and ambulating most of the time incontinent per daughter had- low grade fever for 2 days prior to admission T max 100.9, no cough, no complains of headaches or neck pain earlier on initial at bedside is drowsy appears fidgety with some jerking movements not ff commands now awake and alert, childlike in response, most you can get out of him is giggling per daughter definitely not his baseline Objective Vitals Vital Signs Date Time Temp Pulse Resp B/P (MAP) Pulse Ox O2 Delivery O2 Flow Rate FiO2 07/15/17 04:36 98.5 72 20 144/73 (96) 94 07/15/17 00:28 99.8 78 20 134/67 (89) 93 07/14/17 20:00 98.8 62 19 152/91 (111) 95 07/14/17 16:05 97.4 77 17 170/89 (116) 98 07/14/17 12:24 97.6 59 17 144/69 (94) 100 07/14/17 10:30 I/O 07/14/17 07/14/17 07/14/17 07/15/17 07/15/17 07/15/17 07:00 15:00 23:00 07:00 15:00 23:00 Intake Total 1300 ml Balance 1300 ml Intake IV Total 1300 ml # Voids 4 2 2 Result Diagram: 07/15/17 0633 07/15/17 0633 Imaging Last Impressions Neck Magnetic Resonance Angiography 07/14/17842 Signed Impressions: Service Date/Time: Friday, July 14, 2017 17:10 - CONCLUSION: Normal examination. Ant Campbell MD Head Magnetic Resonance Angiography 07/14/17842 Signed Impressions: Service Date/Time: Friday, July 14, 2017 17:10 - CONCLUSION: No acute disease. Bret Pereira Jr., MD Brain MRI 07/14/17842 Signed Impressions: Service Date/Time: Friday, July 14, 2017 17:10 - CONCLUSION: Normal examination for a patient of this age. Ant Campbell MD Chest X-Ray 07/14/17705 Signed Impressions: Service Date/Time: Andre, July 14, 2017 07:30 - CONCLUSION: Underinflated examination with atelectasis at the lung bases. Otherwise, no acute finding is identified. Santy Hernadez MD Objective Remarks drowsy, expressive aphasia, non verbal, some grunting needs prompting to arouse him anicteric pupils equal no nuchal rigidity no rales or wheezes regular rhythm abdomen soft, no guarding extremities no edema moves all extremities spontaneously and to painful stimuli gait testing deferred A/P Assessment and Plan Mr. Hendricks is a 71 year old male with a history of dementia who presented to the ED after he was found unresponsive by his . Day prior to this admission , she brought him to the ED due to 5-6 day duration of increased confusion, shuffling gait. - Acute encephalopathy- expressive aphasia, childlike - Although he has dementia, apparently his degree of confusion is much more profound than he normally is. per daughter- new onset decline in MS and functioning - MRI reviewed. Neurology ff ? need for LP -speech therapy consult- swallowing and cognitive evaluation -Hyponatremia NA improved to 133 -History of hypothyroidsim Increase Synthroid to 75 mcg po daily - Alzheimer's dementia - Will continue home medications. consider psychiatry evaluation - History of PM - Does not appear to be related to patient's clinical symptoms. Cardiology ff Patient has a [employer] pacemaker. - Hypertension - will continue losartan. Hold beta davy for now. Full code. Gama Patel MD Jul 15, 2017 09:52
[2017-07-15 11:08] LABS: % SATURATION IRON PROFILE 16.3 % (20-50); IRON (FE) 70 MCG/DL (65-175); TOTAL IRON BINDING CAPACITY 430 MCG/DL (250-450)
[2017-07-15 11:33] LABS: FERRITIN 18 NG/ML (26-388); FOLATE 17.8 NG/ML (3.1-17.5)
--- NOTE | 2017-07-15 12:59 | HHI.PR ---
Review/Management Diagnosis 1 . History of Alzheimer's disease 2. Encephalopathy. 3. Pacemaker 4. Hypertension. 5. Coronary artery disease status post coronary artery bypass graft Evaluation and counselling: I discussed at length the current neurologic status of the patient and the possible etiologic factors that may have contributed to the decline of the patient's cognition, like an ongoing infection, s/p flu vaccination with a low grade fever that has been ongoing, and that there has been some fluctuation in the level of awareness with infrequent myoclonic activity that may go with LBD, as a presumptive diagnosis, another unlikely possible diagnosis is encephalitis. Plan 1. Neuro checks q. one hourly. 2. Fall precautions. 3. EEG 4. Supportive medical therapy for hyponatremia and hypothyroidism. 5. DVT prophylaxis. 6. TIA prophylaxis. 7. Continue Aricept and Namenda at current home doses. Diagnosis/Plan: Subjective Subjective Comments No acute events reported No reported seizure activity Noted intermittent myoclonic movements in upper extremities, and as per attending physician in the LE MRI brain, MRA head and neck with no evidence of an acute intracranial abnormality and daughter at bed side Active Medications Current Medications Medications (Trade) Dose Ordered Sig/Beth Route Start Time Stop Time Status Last Admin Sodium Chloride 1,000 ml @ 100 mls/hr Q10H IV 07/14/17 10:00 07/15/17 04:33 (NS Flush) 2 ml UNSCH PRN IV FLUSH 07/14/17 09:30 (NS Flush) 2 ml BID IV FLUSH 07/14/17 21:00 (Tylenol) 650 mg Q4H PRN PO 07/14/17 09:30 07/15/17 04:32 (Zofran Inj) 4 mg Q6H PRN IVP 07/14/17 09:30 (Narcan Inj) 0.4 mg UNSCH PRN IV PUSH 07/14/17 09:30 (Sherrell-Colace) 1 tab BID PO 07/14/17 21:00 07/15/17 08:47 (Milk Of Magnesia Liq) 30 ml Q12H PRN PO 07/14/17 09:30 (Senokot) 17.2 mg Q12H PRN PO 07/14/17 09:30 (Dulcolax Supp) 10 mg DAILY PRN RECTAL 07/14/17 09:30 (Lactulose Liq) 30 ml DAILY PRN PO 07/14/17 09:30 (Melatonin) 5 mg HS PRN PO 07/14/17 16:30 (Aricept) 10 mg HS PO 07/15/17 21:00 (Synthroid) 50 mcg DAILY@0600 PO 07/15/17 06:00 07/15/17 04:33 (Cozaar) 50 mg DAILY PO 07/15/17 09:00 07/15/17 08:47 Patient Own Medication PT OWN MED: NON-FORMULARY D... DAILY PO 07/15/17 09:00 Future Hold Allergies Allergies Coded Allergies No Known Allergies ([id number]/16) Review of Systems All other ROS: ROS reviewed as documented in chart Exam I&O / VS Vital Signs Date Time Temp Pulse Resp B/P (MAP) Pulse Ox O2 Delivery O2 Flow Rate FiO2 07/15/17 10:20 98 21 07/15/17 04:36 98.5 72 20 144/73 (96) 94 07/15/17 00:28 99.8 78 20 134/67 (89) 93 07/14/17 20:00 98.8 62 19 152/91 (111) 95 07/14/17 16:05 97.4 77 17 170/89 (116) 98 Exam Comments GENERAL: Awake, alert, poor historian not in apparent distress, pleasantly demented. HEENT: Atraumatic, normocephalic. Intact hearing. Intact vision. NECK: Soft, supple. No signs of meningeal irritation. CARDIOVASCULAR: Regular rate and rhythm. RESPIRATORY: Clear to auscultation GASTROINTESTINAL: Soft, nontender MUSCULOSKELETAL: Moves four extremities. No clubbing or cyanosis. NEUROLOGIC: Awake, alert, oriented to person, not to time or place. Speaks with a soft voice. Intact naming, poor comprehension and judgment. Positive Myerson sign. Cranial nerves are grossly intact. Motor system examination unable to accurately assess the muscle strength because of the lack of the cooperation due to the clinical condition. Fidgety movements of the UE. There is rigidity with mild cogwheeling in the bilateral upper and lower extremities with intermittent myoclonus in UE. Reflexes 1+ bilateral symmetrical. Plantars are bilaterally downgoing. Cerebellar functions unable to assess due to the condition of the patient. Objective Radiology Results Last 72 hours Impressions Neck Magnetic Resonance Angiography 07/14/17 0860 Signed Impressions: Service Date/Time: Friday, July 14, 2017 17:10 - CONCLUSION: Normal examination. Ant Campbell MD Head Magnetic Resonance Angiography 07/14/17842 Signed Impressions: Service Date/Time: Friday, July 14, 2017 17:10 - CONCLUSION: No acute disease. Bret Pereira Jr., MD Brain MRI 07/14/1743 Signed Impressions: Service Date/Time: Friday, July 14, 2017 17:10 - CONCLUSION: Normal examination for a patient of this age. Ant Campbell MD Chest X-Ray 07/14/1706 Signed Impressions: Service Date/Time: Friday, July 14, 2017 07:30 - CONCLUSION: Underinflated examination with atelectasis at the lung bases. Otherwise, no acute finding is identified. Santy Hernadez MD Micro and Labs Laboratory Tests Test 07/15/17 06:33 White Blood Count 5.1 Red Blood Count 3.25 Hemoglobin 9.9 Hematocrit 29.0 Mean Corpuscular Volume 89.1 Mean Corpuscular Hemoglobin 30.5 Mean Corpuscular Hemoglobin Concent 34.3 Red Cell Distribution Width 14.9 Platelet Count 175 Mean Platelet Volume 7.5 Neutrophils (%) (Auto) 73.0 Lymphocytes (%) (Auto) 11.9 Monocytes (%) (Auto) 13.8 Eosinophils (%) (Auto) 0.7 Basophils (%) (Auto) 0.6 Neutrophils # (Auto) 3.7 Lymphocytes # (Auto) 0.6 Monocytes # (Auto) 0.7 Eosinophils # (Auto) 0.0 Basophils # (Auto) 0.0 CBC Comment DIFF FINAL Differential Comment Blood Urea Nitrogen 10 Creatinine 0.98 Random Glucose 93 Calcium Level 8.2 Sodium Level 133 Potassium Level 3.9 Chloride Level 104 Carbon Dioxide Level 21.7 Anion Gap 7 Estimat Glomerular Filtration Rate 75 Iron Level 70 Total Iron Binding Capacity 430 Percent Iron Saturation 16.3 Ferritin 18 Vitamin B12 Level 162 Folate 17.8 Free Thyroxine 1.04 Free Triiodothyronine (T3) pg/dL 1.83 Date/Time Source Procedure Growth Status 07/14/17 07:20 Blood Peripheral Aerobic Blood Culture - Preliminary NO GROWTH IN 1 DAY Resulted 07/14/17 07:20 Blood Peripheral Anaerobic Blood Culture - Preliminary NO GROWTH IN 1 DAY Resulted Silver Michael MD Jul 15, 2017 12:59
--- NOTE | 2017-07-15 19:00 | PD.CARD.PN ---
Subjective Subjective Remarks Awake, alert. Denies complaints. Sitting up in chair. at side. Objective Medications Current Medications Medications (Trade) Dose Ordered Sig/Beth Route Start Time Stop Time Status Last Admin Sodium Chloride 1,000 ml @ 100 mls/hr Q10H IV 07/14/17 10:00 07/15/17 14:23 (NS Flush) 2 ml UNSCH PRN IV FLUSH 07/14/17 09:30 (NS Flush) 2 ml BID IV FLUSH 07/14/17 21:00 (Tylenol) 650 mg Q4H PRN PO 07/14/17 09:30 07/15/17 04:32 (Zofran Inj) 4 mg Q6H PRN IVP 07/14/17 09:30 (Narcan Inj) 0.4 mg UNSCH PRN IV PUSH 07/14/17 09:30 (Sherrell-Colace) 1 tab BID PO 07/14/17 21:00 07/15/17 08:47 (Milk Of Magnesia Liq) 30 ml Q12H PRN PO 07/14/17 09:30 (Senokot) 17.2 mg Q12H PRN PO 07/14/17 09:30 (Dulcolax Supp) 10 mg DAILY PRN RECTAL 07/14/17 09:30 (Lactulose Liq) 30 ml DAILY PRN PO 07/14/17 09:30 (Melatonin) 5 mg HS PRN PO 07/14/17 16:30 (Aricept) 10 mg HS PO 07/15/17 21:00 (Synthroid) 50 mcg DAILY@0600 PO 07/15/17 06:00 07/15/17 04:33 (Cozaar) 50 mg DAILY PO 07/15/17 09:00 07/15/17 08:47 Patient Own Medication PT OWN MED: NON-FORMULARY D... DAILY PO 07/15/17 09:00 Future Hold Vital Signs / I&O Vital Signs Date Time Temp Pulse Resp B/P (MAP) Pulse Ox O2 Delivery O2 Flow Rate FiO2 07/15/17 16:00 98.4 66 16 157/72 (100) 98 07/15/17 12:00 97.3 69 18 145/80 (101) 94 07/15/17 10:20 98 21 07/15/17 08:00 98.4 81 18 147/75 (99) 94 07/15/17 04:36 98.5 72 20 144/73 (96) 94 07/15/17 00:28 99.8 78 20 134/67 (89) 93 07/14/17 20:00 98.8 62 19 152/91 (111) 95 I/O 07/14/17 07/14/17 07/14/17 07/15/17 07/15/17 07/15/17 07:00 15:00 23:00 07:00 15:00 23:00 Intake Total 1300 ml Output Total 200 ml Balance 1300 ml -200 ml Intake IV Total 1300 ml Output Urine Total 200 ml # Voids 4 2 2 7 # Bowel Movements 0 Physical Exam GENERAL: Awake, alert. No distress. SKIN: Warm and dry. HEAD: Atraumatic. Normocephalic. EYES: Pupils equal and round. No scleral icterus. No injection or drainage. ENT: No nasal bleeding or discharge. Mucous membranes pink and moist. NECK: Trachea midline. No JVD. CARDIOVASCULAR: Regular rate and rhythm. RESPIRATORY: No accessory muscle use. Clear to auscultation. Breath sounds equal bilaterally. GASTROINTESTINAL: Abdomen soft, non-tender, nondistended. Hepatic and splenic margins not palpable. MUSCULOSKELETAL: Extremities without clubbing, cyanosis, or edema. No obvious deformities. NEUROLOGICAL: Awake and alert. No obvious cranial nerve deficits. Motor grossly within normal limits. Five out of 5 muscle strength in the arms and legs. Normal speech. PSYCHIATRIC: Calm, cooperative. Laboratory Laboratory Tests Test 07/15/17 06:33 White Blood Count 5.1 TH/MM3 Red Blood Count 3.25 MIL/MM3 Hemoglobin 9.9 GM/DL Hematocrit 29.0 % Mean Corpuscular Volume 89.1 FL Mean Corpuscular Hemoglobin 30.5 PG Mean Corpuscular Hemoglobin Concent 34.3 % Red Cell Distribution Width 14.9 % Platelet Count 175 TH/MM3 Mean Platelet Volume 7.5 FL Neutrophils (%) (Auto) 73.0 % Lymphocytes (%) (Auto) 11.9 % Monocytes (%) (Auto) 13.8 % Eosinophils (%) (Auto) 0.7 % Basophils (%) (Auto) 0.6 % Neutrophils # (Auto) 3.7 TH/MM3 Lymphocytes # (Auto) 0.6 TH/MM3 Monocytes # (Auto) 0.7 TH/MM3 Eosinophils # (Auto) 0.0 TH/MM3 Basophils # (Auto) 0.0 TH/MM3 CBC Comment DIFF FINAL Differential Comment Blood Urea Nitrogen 10 MG/DL Creatinine 0.98 MG/DL Random Glucose 93 MG/DL Calcium Level 8.2 MG/DL Sodium Level 133 MEQ/L Potassium Level 3.9 MEQ/L Chloride Level 104 MEQ/L Carbon Dioxide Level 21.7 MEQ/L Anion Gap 7 MEQ/L Estimat Glomerular Filtration Rate 75 ML/MIN Iron Level 70 MCG/DL Total Iron Binding Capacity 430 MCG/DL Percent Iron Saturation 16.3 % Ferritin 18 NG/ML Vitamin B12 Level 162 PG/ML Folate 17.8 NG/ML Free Thyroxine 1.04 NG/DL Free Triiodothyronine (T3) pg/dL 1.83 PG/ML Assessment and Plan Assessment and Plan Unwitnessed syncopal episode, found unresponsive. Likely exacerbated by infection. Patient had fever in the ER on admission, low grade temps. SSS s/p PPM Carotid stenosis HTN HLD Pacemaker was not interrogated. Will call [employer] for interrogation. No arrhythmias notes on telemetry. VSS. Discussed Condition With Pam De Anda Jul 15, 2017 19:00
[2017-07-15] MEDS: DONEPEZIL HCL 5 MG TAB PO SCH (23:47)
[2017-07-16] MEDS: MELATONIN 5 MG TAB PO PRN (02:38)
[2017-07-16 04:37] VITALS: BP 141/69; PULSE 80; RESP 20; TEMP 97.8; O2SAT 95
[2017-07-16] MEDS: LEVOTHYROXINE SODIUM 50 MCG TAB PO SCH (07:35)
[2017-07-16 08:00] VITALS: BP 154/73; PULSE 65; PULSE 69; RESP 18; TEMP 97.7; O2SAT 96
[2017-07-16] MEDS: LOSARTAN 50 MG TAB PO SCH (08:38)
[2017-07-16] MEDS: DOCUSATE SODIUM 50 MG/SENNA 8.6 MG TAB PO SCH ×2 (08:38→21:03)
[2017-07-16] MEDS: SODIUM CHLORIDE 0.9% FLUSH 10 ML FLUSH IV FLUSH SCH ×2 (09:00→21:04)
[2017-07-16 09:15] VITALS: O2SAT 96
[2017-07-16] MEDS: SODIUM CHLOR 0.9% 1000 ML INJ 1,000 ML IV SCH (10:23)
[2017-07-16 12:00] VITALS: BP 152/73; PULSE 61; RESP 19; TEMP 97.7; O2SAT 94
[2017-07-16] MEDS ORDERED: CYANOCOBALAMIN 1000 MCG/ML VIAL IM SCH (15:00)
--- NOTE | 2017-07-16 15:03 | HHI.PR ---
Subjective Remarks patient awake, smiled when addressed mumbling and smiling no aggressive features per staff up all night- did not sleep family feeds him- good po per staff EEG being done at bedside Objective Vitals Vital Signs Date Time Temp Pulse Resp B/P (MAP) Pulse Ox O2 Delivery O2 Flow Rate FiO2 07/16/17 12:00 97.7 61 19 152/73 (99) 94 07/16/17 09:15 96 07/16/17 08:00 97.7 69 18 154/73 (100) 96 07/16/17 04:37 97.8 80 20 141/69 (93) 95 07/15/17 23:29 98.5 69 16 165/89 (114) 96 154/84 (107) 135/84 (101) 07/15/17 20:00 98.5 66 18 154/87 (109) 96 07/15/17 19:18 98 21 07/15/17 16:00 98.4 66 16 157/72 (100) 98 I/O 07/15/17 07/15/17 07/15/17 07/16/17 07/16/17 07/16/17 07:00 15:00 23:00 07:00 15:00 23:00 Intake Total 400 ml 1450 ml Output Total 200 ml 600 ml 450 ml Balance -200 ml -200 ml 1000 ml Intake Oral 400 ml 450 ml IV Total 1000 ml Output Urine Total 200 ml 600 ml 450 ml # Voids 2 7 1 10 # Bowel Movements 0 0 0 Result Diagram: 07/15/1733 07/15/17 0633 Imaging Last Impressions Neck Magnetic Resonance Angiography 07/14/17842 Signed Impressions: Service Date/Time: Friday, July 14, 2017 17:10 - CONCLUSION: Normal examination. Ant Campbell MD Head Magnetic Resonance Angiography 07/14/17842 Signed Impressions: Service Date/Time: Friday, July 14, 2017 17:10 - CONCLUSION: No acute disease. Bret Pereira Jr., MD Brain MRI 07/14/17842 Signed Impressions: Service Date/Time: Friday, July 14, 2017 17:10 - CONCLUSION: Normal examination for a patient of this age. Ant Campbell MD Chest X-Ray 07/14/17705 Signed Impressions: Service Date/Time: Friday, July 14, 2017 07:30 - CONCLUSION: Underinflated examination with atelectasis at the lung bases. Otherwise, no acute finding is identified. 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 Hendricks is a 71 year old male with a history of dementia who presented to the ED after he was found unresponsive by his . Day prior to this admission , she brought him to the ED due to 5-6 day duration of increased confusion, shuffling gait. - Acute encephalopathy- expressive aphasia, childlike Advance dementia - Although he has dementia, apparently his degree of confusion is much more profound than he normally is. per daughter- new onset decline in MS and functioning - MRI reviewed. Neurology ff - continue on Namenda and Aricept -speech therapy ff- for cognitive evaluation - on mechanical soft diet -Hyponatremia NA improved to 133. ff BMP -History of hypothyroidsim on synthroid 50 mcg po daily low T3 - start cytomel 25 mcg po daily - Alzheimer's dementia - recent decompensation - Will continue home medications. give Seroquel tonight- to help with sleep get psychiatry consult- for recommendation - History of PM Hypertension - Does not appear to be related to patient's clinical symptoms. Cardiology ff Patient has a [employer] pacemaker. continue on Cozaar will restart his Lopressor at 12.5 mg po bid. Hold Plavix Anemia- low iron stores start Ferrous sulfate 325 mg po bid on H2 davy Low B12- give B12 IM x 1 then q 30 days Deconditioning- PT daily Lovenox for DVT prophylaxis CM - DC planning- SNF Full code. Gama Patel MD Jul 16, 2017 15:03
[2017-07-16] MEDS ORDERED: PILL SPLITTER OTHER PRN (15:15)
--- NOTE | 2017-07-16 15:42 | MG ---
cc: ELMER MICHAEL MD Lab No: Date: Age: Sex: M Race: REFERRING PHYSICIAN: Dr. Patel. MEDICAL HISTORY: 1. Altered mental status. 2. Dementia. 3. Hypertension. 4. Coronary artery disease. 5. Pacemaker. 6. Status post CABG. 7. Hypothyroidism. 8. Prostate cancer. 9. Anxiety. MEDICATIONS: 1. Synthroid. 2. Melatonin. DESCRIPTION OF THE RECORDING: The background activity is 6 to 7 theta hertz bilateral and symmetrical. During the recording, there is transition of stage to stage 2 sleep with K-complexes and slowing of the background. There is excessive movement artifact during the recording. Hyperventilation was not done. Photic stimulation was not done as the patient would not close eyes. There were no electrographic seizures or epileptiform discharges noted. INTERPRETATION: This is a drowsy and sleep EEG. There is mild background slowing that may indicate mild to moderate encephalopathy. There was no ictal activity or epileptiform discharges. Absence of electrographic seizures or epileptiform discharges does not exclude diagnosis of epilepsy. Clinical correlation is recommended. Elmer Michael MD [facility] /3:32 PM /3:37 PM MTDVeronica
--- NOTE | 2017-07-16 15:42 | MG ---
cc: ELMER MICHAEL MD Lab No: Date: Age: Sex: M Race: REFERRING PHYSICIAN: Dr. Patel. MEDICAL HISTORY: 1. Altered mental status. 2. Dementia. 3. Hypertension. 4. Coronary artery disease. 5. Pacemaker. 6. Status post CABG. 7. Hypothyroidism. 8. Prostate cancer. 9. Anxiety. MEDICATIONS: 1. Synthroid. 2. Melatonin. DESCRIPTION OF THE RECORDING: The background activity is 6 to 7 theta hertz bilateral and symmetrical. During the recording, there is transition of stage to stage 2 sleep with K-complexes and slowing of the background. There is excessive movement artifact during the recording. Hyperventilation was not done. Photic stimulation was not done as the patient would not close eyes. There were no electrographic seizures or epileptiform discharges noted. INTERPRETATION: This is a drowsy and sleep EEG. There is mild background slowing that may indicate mild to moderate encephalopathy. There was no ictal activity or epileptiform discharges. Absence of electrographic seizures or epileptiform discharges does not exclude diagnosis of epilepsy. Clinical correlation is recommended. Elmer Michael MD [facility] /3:32 PM /3:37 PM MTDVeronica
--- NOTE | 2017-07-16 15:42 | MG ---
cc: ELMER MICHAEL MD Lab No: Date: Age: Sex: M Race: REFERRING PHYSICIAN: Dr. Patel. MEDICAL HISTORY: 1. Altered mental status. 2. Dementia. 3. Hypertension. 4. Coronary artery disease. 5. Pacemaker. 6. Status post CABG. 7. Hypothyroidism. 8. Prostate cancer. 9. Anxiety. MEDICATIONS: 1. Synthroid. 2. Melatonin. DESCRIPTION OF THE RECORDING: The background activity is 6 to 7 theta hertz bilateral and symmetrical. During the recording, there is transition of stage to stage 2 sleep with K-complexes and slowing of the background. There is excessive movement artifact during the recording. Hyperventilation was not done. Photic stimulation was not done as the patient would not close eyes. There were no electrographic seizures or epileptiform discharges noted. INTERPRETATION: This is a drowsy and sleep EEG. There is mild background slowing that may indicate mild to moderate encephalopathy. There was no ictal activity or epileptiform discharges. Absence of electrographic seizures or epileptiform discharges does not exclude diagnosis of epilepsy. Clinical correlation is recommended. Elmer Michael MD [facility] /3:32 PM /3:37 PM MTDVeronica
[2017-07-16 16:00] VITALS: BP 151/76; PULSE 66; RESP 19; TEMP 98; O2SAT 95
[2017-07-16] MEDS: ENOXAPARIN SODIUM 30 MG/0.3 ML SYRINGE SQ SCH (16:17)
--- NOTE | 2017-07-16 17:31 | PD.CARD.PN ---
Subjective Subjective Remarks Awake, alert. Denies complaints. Sitting up in chair. at side. Objective Medications Current Medications Medications (Trade) Dose Ordered Sig/Beth Route Start Time Stop Time Status Last Admin (NS Flush) 2 ml UNSCH PRN IV FLUSH 07/14/17 09:30 (NS Flush) 2 ml BID IV FLUSH 07/14/17 21:00 (Tylenol) 650 mg Q4H PRN PO 07/14/17 09:30 07/15/17 04:32 (Zofran Inj) 4 mg Q6H PRN IVP 07/14/17 09:30 (Narcan Inj) 0.4 mg UNSCH PRN IV PUSH 07/14/17 09:30 (Sherrell-Colace) 1 tab BID PO 07/14/17 21:00 07/16/17 08:38 (Milk Of Magnesia Liq) 30 ml Q12H PRN PO 07/14/17 09:30 (Senokot) 17.2 mg Q12H PRN PO 07/14/17 09:30 (Dulcolax Supp) 10 mg DAILY PRN RECTAL 07/14/17 09:30 (Lactulose Liq) 30 ml DAILY PRN PO 07/14/17 09:30 (Melatonin) 5 mg HS PRN PO 07/14/17 16:30 07/16/17 02:38 (Aricept) 10 mg HS PO 07/15/17 21:00 07/15/17 23:47 (Synthroid) 50 mcg DAILY@0600 PO 07/15/17 06:00 07/16/17 07:35 (Cozaar) 50 mg DAILY PO 07/15/17 09:00 07/16/17 08:38 Patient Own Medication PT OWN MED: NON-FORMULARY D... DAILY PO 07/15/17 09:00 Future Hold (Cytomel) 25 mcg DAILY PO 07/17/17 09:00 (Vitamin B12 Inj) 1,000 mcg Q30D IM 07/16/17 15:00 07/16/17 16:17 (SEROquel) 12.5 mg HS PO 07/16/17 21:00 (Lovenox Inj) 30 mg Q24H SQ 07/16/17 16:00 Future Hold 07/16/17 16:17 (Pill Splitter) 1 ea UNSCH PRN OTHER 07/16/17 15:15 (Pepcid) 20 mg DAILY PO 07/17/17 09:00 (Pravachol) 20 mg DAILY PO 07/17/17 09:00 (Namenda) 10 mg DAILY PO 07/17/17 09:00 (Lopressor) 12.5 mg Q12HR PO 07/16/17 21:00 (Ferrous Sulfate) 325 mg BID PO 07/16/17 21:00 Vital Signs / I&O Vital Signs Date Time Temp Pulse Resp B/P (MAP) Pulse Ox O2 Delivery O2 Flow Rate FiO2 07/16/17 16:00 98.0 66 19 151/76 (101) 95 07/16/17 12:00 97.7 61 19 152/73 (99) 94 07/16/17 09:15 96 07/16/17 08:00 97.7 69 18 154/73 (100) 96 07/16/17 04:37 97.8 80 20 141/69 (93) 95 07/15/17 23:29 98.5 69 16 165/89 (114) 96 154/84 (107) 135/84 (101) 07/15/17 20:00 98.5 66 18 154/87 (109) 96 07/15/17 19:18 98 21 I/O 07/15/17 07/15/17 07/15/17 07/16/17 07/16/17 07/16/17 07:00 15:00 23:00 07:00 15:00 23:00 Intake Total 400 ml 1450 ml 560 ml Output Total 200 ml 600 ml 450 ml 1200 ml Balance -200 ml -200 ml 1000 ml -640 ml Intake Oral 400 ml 450 ml 560 ml IV Total 1000 ml Output Urine Total 200 ml 600 ml 450 ml 1200 ml # Voids 2 7 1 10 5 # Bowel Movements 0 0 0 3 Physical Exam GENERAL: Awake, alert. No distress. SKIN: Warm and dry. HEAD: Atraumatic. Normocephalic. EYES: Pupils equal and round. No scleral icterus. No injection or drainage. ENT: No nasal bleeding or discharge. Mucous membranes pink and moist. NECK: Trachea midline. No JVD. CARDIOVASCULAR: Regular rate and rhythm. RESPIRATORY: No accessory muscle use. Clear to auscultation. Breath sounds equal bilaterally. GASTROINTESTINAL: Abdomen soft, non-tender, nondistended. Hepatic and splenic margins not palpable. MUSCULOSKELETAL: Extremities without clubbing, cyanosis, or edema. No obvious deformities. NEUROLOGICAL: Awake and alert. No obvious cranial nerve deficits. Motor grossly within normal limits. Five out of 5 muscle strength in the arms and legs. Normal speech. PSYCHIATRIC: Calm, cooperative. Assessment and Plan Assessment and Plan Unwitnessed syncopal episode, found unresponsive. Likely exacerbated by infection. Patient had fever in the ER on admission, low grade temps. SSS s/p PPM Carotid stenosis HTN HLD Pacemaker interrogation without arrhythmias. No arrhythmias notes on telemetry. VSS. Dr. Mccullough to follow tomorrow. Code Status full Discussed Condition With Pam De Anda Jul 16, 2017 17:31
[2017-07-16 20:00] VITALS: BP 151/77; PULSE 66; RESP 19; TEMP 98.8; O2SAT 98
[2017-07-16] MEDS: DONEPEZIL HCL 5 MG TAB PO SCH (21:03)
[2017-07-16] MEDS: METOPROLOL TARTRATE 25 MG TAB PO SCH (21:03)
[2017-07-16] MEDS: QUEtiapine FUMARATE 25 MG TAB PO SCH (21:03)
[2017-07-16] MEDS: FERROUS SULFATE 325 MG (65 MG ELEMENTAL IRON) TAB PO SCH (21:03)
[2017-07-16] MEDS: ACETAMINOPHEN 325 MG TAB PO PRN (21:04)
--- NOTE | 2017-07-16 23:07 | HHI.PR ---
Review/Management Diagnosis 1 . History of Alzheimer's disease 2. Encephalopathy. 3. Pacemaker 4. Hypertension. 5. Coronary artery disease status post coronary artery bypass graft Evaluation and counselling: - I discussed at length with the family members, daughter who comes from [place] and sister who lives locally, the current neurologic status of the patient and the possible etiologic factors that may have contributed to the decline of the patient's cognition, like an ongoing infection, s/p flu vaccination with a low grade fever that has been ongoing, and that there has been some fluctuation in the level of awareness with infrequent myoclonic activity that may go with LBD, as a presumptive diagnosis, another unlikely possible diagnosis is encephalitis. - The family members are concerned about an infectious process or GBS as per their friend MD suggestion, I explained to them that at this time there in no clinical evidence that the clinical picture is of GBS, they want to pursue LP that was raised as a possible diagnostic tool in yesterday's discussion to rule out any infectious pathology or chronic prion disease Plan - Neuro checks q. one hourly. - Fall precautions. - LP for CSF analysis, for chemistry, cytology, viral assay, prion disease [ 14.3.3. protein ] - Obtain vitamin B1 level - Supportive medical therapy for hyponatremia and hypothyroidism. - DVT prophylaxis. - TIA prophylaxis. - Continue Aricept and Namenda at current home doses. Diagnosis/Plan: Subjective Subjective Comments No acute events reported Family at bed side They are concerned that this condition may be GBS and they asked about IVIG, asper a friend MD they know and discussed the case with EEG is unremarkable but for mild background slowing Low Vitamin B12 levels [162], abnormal TFT Infrequent myoclonic movements mainly UE MRI brain, MRA head and neck are unremarkable for an acute intracranial abnormality Active Medications Current Medications Medications (Trade) Dose Ordered Sig/Beth Route Start Time Stop Time Status Last Admin (NS Flush) 2 ml UNSCH PRN IV FLUSH 07/14/17 09:30 (NS Flush) 2 ml BID IV FLUSH 07/14/17 21:00 07/16/17 21:04 (Tylenol) 650 mg Q4H PRN PO 07/14/17 09:30 07/16/17 21:04 (Zofran Inj) 4 mg Q6H PRN IVP 07/14/17 09:30 (Narcan Inj) 0.4 mg UNSCH PRN IV PUSH 07/14/17 09:30 (Sherrell-Colace) 1 tab BID PO 07/14/17 21:00 07/16/17 21:03 (Milk Of Magnesia Liq) 30 ml Q12H PRN PO 07/14/17 09:30 (Senokot) 17.2 mg Q12H PRN PO 07/14/17 09:30 (Dulcolax Supp) 10 mg DAILY PRN RECTAL 07/14/17 09:30 (Lactulose Liq) 30 ml DAILY PRN PO 07/14/17 09:30 (Melatonin) 5 mg HS PRN PO 07/14/17 16:30 07/16/17 02:38 (Aricept) 10 mg HS PO 07/15/17 21:00 07/16/17 21:03 (Synthroid) 50 mcg DAILY@0600 PO 07/15/17 06:00 07/16/17 07:35 (Cozaar) 50 mg DAILY PO 07/15/17 09:00 07/16/17 08:38 Patient Own Medication PT OWN MED: NON-FORMULARY D... DAILY PO 07/15/17 09:00 Future Hold (Cytomel) 25 mcg DAILY PO 07/17/17 09:00 (Vitamin B12 Inj) 1,000 mcg Q30D IM 07/16/17 15:00 07/16/17 16:17 (SEROquel) 12.5 mg HS PO 07/16/17 21:00 07/16/17 21:03 (Lovenox Inj) 30 mg Q24H SQ 07/16/17 16:00 Future Hold 07/16/17 16:17 (Pill Splitter) 1 ea UNSCH PRN OTHER 07/16/17 15:15 (Pepcid) 20 mg DAILY PO 07/17/17 09:00 (Pravachol) 20 mg DAILY PO 07/17/17 09:00 (Namenda) 10 mg DAILY PO 07/17/17 09:00 (Lopressor) 12.5 mg Q12HR PO 07/16/17 21:00 07/16/17 21:03 (Ferrous Sulfate) 325 mg BID PO 07/16/17 21:00 07/16/17 21:03 Allergies Allergies Coded Allergies No Known Allergies ([id number]/16) Review of Systems All other ROS: ROS reviewed as documented in chart Exam I&O / VS 07/16/17 07/16/17 07/17/17 15:00 23:00 07:00 Intake Total 560 ml 500 ml Output Total 1200 ml 2000 ml Balance -640 ml -1500 ml Intake Oral 560 ml 500 ml Output Urine Total 1200 ml 2000 ml # Voids 5 # Bowel Movements 3 0 Vital Signs Date Time Temp Pulse Resp B/P (MAP) Pulse Ox O2 Delivery O2 Flow Rate FiO2 07/16/17 20:00 98.8 66 19 151/77 (101) 98 07/16/17 16:00 98.0 66 19 151/76 (101) 95 07/16/17 12:00 97.7 61 19 152/73 (99) 94 07/16/17 09:15 96 07/16/17 08:00 65 07/16/17 08:00 97.7 69 18 154/73 (100) 96 07/16/17 04:37 97.8 80 20 141/69 (93) 95 07/15/17 23:29 98.5 69 16 165/89 (114) 96 154/84 (107) 135/84 (101) Exam Comments GENERAL: Awake, alert, poor historian not in apparent distress, pleasantly demented. HEENT: Atraumatic, normocephalic. Intact hearing. Intact vision. NECK: Soft, supple. No signs of meningeal irritation. CARDIOVASCULAR: Regular rate and rhythm. RESPIRATORY: Clear to auscultation GASTROINTESTINAL: Soft, nontender MUSCULOSKELETAL: Moves four extremities. No clubbing or cyanosis. NEUROLOGIC: Awake, alert, oriented to person, not to time or place. Speaks with a soft voice. Intact naming, poor comprehension and judgment. Positive Myerson sign. Cranial nerves are grossly intact. Motor system examination unable to accurately assess the muscle strength because of the lack of the cooperation due to the clinical condition. Fidgety movements of the UE. There is rigidity with mild cogwheeling in the bilateral upper and lower extremities with intermittent myoclonus in UE. Reflexes 1+ bilateral symmetrical. Plantars are bilaterally downgoing. Cerebellar functions unable to assess due to the condition of the patient. Objective Radiology Results Last 72 hours Impressions Neck Magnetic Resonance Angiography 07/14/17 0843 Signed Impressions: Service Date/Time: Friday, July 14, 2017 17:10 - CONCLUSION: Normal examination. Ant Campbell MD Head Magnetic Resonance Angiography 07/14/1743 Signed Impressions: Service Date/Time: Friday, July 14, 2017 17:10 - CONCLUSION: No acute disease. Bret Pereira Jr., MD Brain MRI 07/14/1743 Signed Impressions: Service Date/Time: Friday, July 14, 2017 17:10 - CONCLUSION: Normal examination for a patient of this age. Ant Campbell MD Chest X-Ray 07/14/1706 Signed Impressions: Service Date/Time: Friday, July 14, 2017 07:30 - CONCLUSION: Underinflated examination with atelectasis at the lung bases. Otherwise, no acute finding is identified. Santy Hernadez MD Micro and Labs Laboratory Tests Test 07/16/17 17:50 Date/Time Source Procedure Growth Status 07/14/17 07:20 Blood Peripheral Aerobic Blood Culture - Preliminary NO GROWTH IN 2 DAYS Resulted 07/14/17 07:20 Blood Peripheral Anaerobic Blood Culture - Preliminary NO GROWTH IN 2 DAYS Resulted Silver Michael MD Jul 16, 2017 23:07
[2017-07-17] VITALS (9 sets, daily range): BP systolic 129–165; BP diastolic 73–84; PULSE 53–72; RESP 16–23; TEMP 97.7–98.7; O2SAT 93–100
[2017-07-17] MEDS: LEVOTHYROXINE SODIUM 50 MCG TAB PO SCH (05:43)
[2017-07-17] MEDS: DOCUSATE SODIUM 50 MG/SENNA 8.6 MG TAB PO SCH ×2 (09:00→20:24)
[2017-07-17] MEDS ORDERED: CLOPIDOGREL 75 MG TAB PO SCH (09:00)
[2017-07-17] MEDS ORDERED: MEMANTINE HCL 10 MG TAB PO SCH (09:00)
[2017-07-17] MEDS: METOPROLOL TARTRATE 25 MG TAB PO SCH ×2 (09:23→20:24)
[2017-07-17] MEDS: LOSARTAN 50 MG TAB PO SCH (09:23)
[2017-07-17] MEDS: PRAVASTATIN SOD 20 MG TAB PO SCH (09:23)
[2017-07-17] MEDS: FAMOTIDINE 20 MG TAB PO SCH (09:24)
[2017-07-17] MEDS: FERROUS SULFATE 325 MG (65 MG ELEMENTAL IRON) TAB PO SCH ×2 (09:24→20:23)
[2017-07-17] MEDS: LIOTHYRONINE SODIUM 25 MCG TAB PO SCH (09:24)
[2017-07-17] MEDS: SODIUM CHLORIDE 0.9% FLUSH 10 ML FLUSH IV FLUSH SCH ×2 (09:25→20:24)
--- NOTE | 2017-07-17 12:31 | HHI.PR ---
Subjective Remarks seen with family awake and alert, very playful and childlike in demeanor ff some commands family admits to baseline dementia concern with the rapid change in his cognitive status Objective Vitals Vital Signs Date Time Temp Pulse Resp B/P (MAP) Pulse Ox O2 Delivery O2 Flow Rate FiO2 07/17/17 12:24 98.7 65 18 165/83 (110) 100 07/17/17 11:14 53 07/17/17 09:28 100 07/17/17 09:01 97.8 72 16 134/76 (95) 100 07/17/17 07:32 63 07/17/17 04:00 97.7 72 22 150/76 (100) 97 07/17/17 00:10 97.9 64 23 145/75 (98) 98 07/16/17 20:00 98.8 66 19 151/77 (101) 98 07/16/17 16:00 98.0 66 19 151/76 (101) 95 I/O 07/16/17 07/16/17 07/16/17 07/17/17 07/17/17 07/17/17 07:00 15:00 23:00 07:00 15:00 23:00 Intake Total 1450 ml 560 ml 500 ml 200 ml Output Total 450 ml 1200 ml 2000 ml 3500 ml Balance 1000 ml -640 ml -1500 ml -3300 ml Intake Oral 450 ml 560 ml 500 ml 200 ml IV Total 1000 ml Output Urine Total 450 ml 1200 ml 2000 ml 3500 ml # Voids 10 5 # Bowel Movements 0 3 0 0 Result Diagram: 07/15/1733 07/15/17632 Imaging Last Impressions Neck Magnetic Resonance Angiography 07/14/17842 Signed Impressions: Service Date/Time: Friday, July 14, 2017 17:10 - CONCLUSION: Normal examination. Ant Campbell MD Head Magnetic Resonance Angiography 07/14/17842 Signed Impressions: Service Date/Time: Friday, July 14, 2017 17:10 - CONCLUSION: No acute disease. Bret Pereira Jr., MD Brain MRI 07/14/17842 Signed Impressions: Service Date/Time: Friday, July 14, 2017 17:10 - CONCLUSION: Normal examination for a patient of this age. Ant Campbell MD Chest X-Ray 07/14/17705 Signed Impressions: Service Date/Time: Friday, July 14, 2017 07:30 - CONCLUSION: Underinflated examination with atelectasis at the lung bases. Otherwise, no acute finding is identified. Santy Hernadez MD Objective Remarks awake, smiled, cigar machine feeder when hands held, puckering faces ? aphasia anicteric pupils equal no nuchal rigidity no rales or wheezes regular rhythm abdomen soft, no guarding extremities no edema moves all extremities spontaneously A/P Assessment and Plan Mr. Hendricks is a 71 year old male with a history of dementia who presented to the ED after he was found unresponsive by his . Day prior to this admission , she brought him to the ED due to 5-6 day duration of increased confusion, shuffling gait. - Acute encephalopathy- expressive aphasia, childlike- Neuro status unchange from eysterday Advance dementia - Although he has dementia, apparently his degree of confusion is much more profound than he normally is. per daughter- new onset decline in MS and functioning - MRI reviewed. Neurology ff - continue on Namenda and Aricept -speech therapy ff-. pt CONSULT - on mechanical soft diet -Hyponatremia NA improved to 133. ff BMP -History of hypothyroidsim on synthroid 50 mcg po daily low T3 - startED cytomel 25 mcg po daily - Alzheimer's dementia - recent decompensation - Will continue home medications. get psychiatry consult- for recommendation- pending - History of PM Hypertension - Does not appear to be related to patient's clinical symptoms. Cardiology ff Patient has a [employer] pacemaker. continue on Cozaar will restart his Lopressor at 12.5 mg po bid Hold Plavix- for LP Anemia- low iron stores Ferrous sulfate 325 mg po bid on H2 davy Low B12- give B12 IM x 1 then q 30 days Deconditioning- PT daily Lovenox for DVT prophylaxis- hold for LP CM - DC planning- SNF Full code. Gama Patel MD Jul 17, 2017 12:31
[2017-07-17] MEDS ORDERED: MEMANTINE HCL 5 MG TAB PO SCH (14:00)
--- NOTE | 2017-07-17 14:16 | PD.PSY.CON ---
Provisional Diagnosis Admission Date Jul 14, 2017 at 09:30 [place] I. Major neurocognitive disorder, Alzheimer's type with behavioral disturbance [place] II. 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 Day prior to this admission, she brought him to the ED due to 5-6 day duration of increased confusion, shuffling gait. Patient was admitted due to metabolic encephalopathy , initially was found with hyponatremia, decompensated hypothyroidism, low folate. Consulted to psychiatry due to behavioral disturbances. On psychiatric evaluation patient is calm, poorly cooperative, due to the level of severity of his dementia patient very communicative. He has to be redirected multiple times. However, he does say that he feels okay, "happy". Denies pain , denies depression, denies suicidal and homicidal ideation, denies visual and auditory hallucinations. She is disoriented in present time and place. His son , Koffi, who was a bedside stated that his father has been demented for many years. However, in the last week they have noted a significant progression of his dementia declined of physical functionality. He says that the only in usual event in his life has been the flu shot. He reported that his father doesn't have any previous psychiatric history other than dementia. 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 She takes care of the patient 100% of the time. Patient has been able so far to do basic things like taking showers, eating, but he needs help in most of his daily life activities. He denies agitation, he denies aggressive behavior in the patient. At this moment the patient is a presenting any agitation, disorganized or aggressive behavior. Review of Systems Except as stated in HPI: all other systems reviewed are Neg Past Family Social History Coded Allergies: No Known Allergies (Verified , 07/02/16) Reported Medications Loratadine (Claritin) 10 Mg Cap, 10 MG PO DAILY for Allergy Management, CAP 0 Refills 11/29/16 Alendronate (Alendronate) 70 Mg Tab, 70 MG PO Q7D for Osteporosis Treatment, #4 TAB 0 Refills 11/29/16 Metoprolol Tartrate (Metoprolol Tartrate) 25 Mg Tab, 25 MG PO BID, #60 TAB 0 Refills 11/29/16 Donepezil (Donepezil) 10 Mg Tab, 10 MG PO HS for Dementia, #30 TAB 0 Refills 11/29/16 Clopidogrel (Clopidogrel) 75 Mg Tab, 75 MG PO DAILY for Blood Clot Prevention, # 30 TAB 0 Refills 11/29/16 Losartan (Losartan) 50 Mg Tab, 50 MG PO DAILY for Blood Pressure Management, # 30 TAB 0 Refills 11/29/16 Memantine Er (Namenda Xr) 28 Mg Caper, 28 MG PO DAILY for Alzheimer Disease, # 30 CAP 0 Refills 11/29/16 Fish Oil-Cholecalciferol (Fish Oil + D3) 1,200-1,000 Mg-Unit Cap, 1 CAP PO DAILY for Nutritional Supplement, #30 CAP 0 Refills 11/29/16 Famotidine (Famotidine) 20 Mg Tab, 20 MG PO DAILY, #60 TAB 0 Refills 11/29/16 Alprazolam (Alprazolam) 0.25 Mg Tab, 0.25 MG PO Q6H Y for ANXIETY, TAB 0 Refills 11/29/16 Sertraline (Sertraline) 50 Mg Tab, 50 MG PO DAILY, #30 TAB 0 Refills 11/29/16 Levothyroxine (Levothyroxine) 50 Mcg Tab, 50 MCG PO DAILY for Thyroid, #30 TAB 0 Refills 11/29/16 Allopurinol (Allopurinol) 300 Mg Tab, 300 MG PO DAILY for Gout, #30 TAB 0 Refills 11/29/16 Simvastatin (Simvastatin) 20 Mg Tab, 10 MG PO DAILY for Cholesterol Management, #30 TAB 0 Refills 11/29/16 Current Medications Medications (Trade) Dose Ordered Sig/Beth Route Start Time Stop Time Status Last Admin (NS Flush) 2 ml UNSCH PRN IV FLUSH 07/14/17 09:30 (NS Flush) 2 ml BID IV FLUSH 07/14/17 21:00 07/17/17 09:25 (Tylenol) 650 mg Q4H PRN PO 07/14/17 09:30 07/16/17 21:04 (Zofran Inj) 4 mg Q6H PRN IVP 07/14/17 09:30 (Narcan Inj) 0.4 mg UNSCH PRN IV PUSH 07/14/17 09:30 (Sherrell-Colace) 1 tab BID PO 07/14/17 21:00 07/16/17 21:03 (Milk Of Magnesia Liq) 30 ml Q12H PRN PO 07/14/17 09:30 (Senokot) 17.2 mg Q12H PRN PO 07/14/17 09:30 (Dulcolax Supp) 10 mg DAILY PRN RECTAL 07/14/17 09:30 (Lactulose Liq) 30 ml DAILY PRN PO 07/14/17 09:30 (Melatonin) 5 mg HS PRN PO 07/14/17 16:30 07/16/17 02:38 (Aricept) 10 mg HS PO 07/15/17 21:00 07/16/17 21:03 (Synthroid) 50 mcg DAILY@0600 PO 07/15/17 06:00 07/17/17 05:43 (Cozaar) 50 mg DAILY PO 07/15/17 09:00 07/17/17 09:23 Patient Own Medication PT OWN MED: NON-FORMULARY D... DAILY PO 07/15/17 09:00 Future Hold (Cytomel) 25 mcg DAILY PO 07/17/17 09:00 07/17/17 09:24 (Vitamin B12 Inj) 1,000 mcg Q30D IM 07/16/17 15:00 07/16/17 16:17 (SEROquel) 12.5 mg HS PO 07/16/17 21:00 07/16/17 21:03 (Lovenox Inj) 30 mg Q24H SQ 07/16/17 16:00 Future Hold 07/16/17 16:17 (Pill Splitter) 1 ea UNSCH PRN OTHER 07/16/17 15:15 (Pepcid) 20 mg DAILY PO 07/17/17 09:00 07/17/17 09:24 (Pravachol) 20 mg DAILY PO 07/17/17 09:00 07/17/17 09:23 (Namenda) 10 mg DAILY PO 07/17/17 09:00 07/17/17 09:23 (Lopressor) 12.5 mg Q12HR PO 07/16/17 21:00 07/17/17 09:23 (Ferrous Sulfate) 325 mg BID PO 07/16/17 21:00 07/17/17 09:24 (Namenda) 5 mg DAILY PO 07/17/17 14:00 UNV Social History Age was born and raised in [place], he lives in [place] with his , he has 3 kids, is a of [place] war, supported by assisted benefits. Patient's Strengths (min. 2) Family support Physical Exam Vital Signs Vital Signs Date Time Temp Pulse Resp B/P (MAP) Pulse Ox O2 Delivery O2 Flow Rate FiO2 07/17/17 12:24 98.7 65 18 165/83 (110) 100 07/15/17 19:18 21 07/14/17 09:50 Nasal Cannula 4.00 I/O 07/17/17 07/17/17 07/18/17 08:00 16:00 00:00 Intake Total 200 ml Output Total 3500 ml Balance -3300 ml Lab Results Test 07/16/17 17:50 Date/Time Source Procedure Growth Status 07/14/17 07:20 Blood Peripheral Aerobic Blood Culture - Preliminary NO GROWTH IN 3 DAYS Resulted 07/14/17 07:20 Blood Peripheral Anaerobic Blood Culture - Preliminary NO GROWTH IN 3 DAYS Resulted Mental Status Examination Appearance: Appropriate Consciousness: Alert Orientation: Person Motor Activity: Other (decreased) Speech: Hesitant, Other (poverty of speech) Suicidal Ideation: No Suicidal Plan: No Suicidal Intention: No Homicidal Ideation: No Homicidal Plan: No Homicidal Intention: No Insight: Poor Judgment: Poor Assessment & Plan Problem List: (1) Dementia ICD Codes: F03.90 - Dementia Status: Acute Assessment & Plan: At the moment of this evaluation no aggressive behavior, no violence, no agitation present. Patient is calm, pleasantly confused. Disoriented in time person and place. Smiling, he says that he is happy. There is no evidence of depression, anxiety, jackelyn or psychosis. Patient is evidently severely demented. Seems to be the reason agitation could be related with delirium superimposed to dementia due to hyponatremia and decompensated hypothyroidism. However, as I explained to family members, due to the severity of his dementia patient has a high risk for neuropsychiatric symptoms such as agitation, aggressiveness, disorganized behavior, visual and auditory hallucinations, paranoia. Agree with Seroquel 12.5 mg twice a day, could be increase as patient needs and tolerates, to 25 mg twice a day or even 50 mg twice a day for behavioral dysregulation. Agree with Aricept 10 mg. Will add Namenda 10 mg slower to progression of dementia. Extensive support, motivation and psychoeducation, to the patient also to family members, provided. She does not meet criteria for psychiatric admission at this moment. We'll follow-up. Assessment & Plan Estimated LOS: days Problem Qualifiers (1) Dementia: oTro Navarro MD Jul 17, 2017 14:16
--- NOTE | 2017-07-17 14:43 | PD.CARD.PN ---
Subjective Subjective Remarks Patient very demented. Cannot provide ROS. at bedside, no concerns from cardiac standpoint (Rosangela Willis) Objective Medications Current Medications Medications (Trade) Dose Ordered Sig/Beth Route Start Time Stop Time Status Last Admin (NS Flush) 2 ml UNSCH PRN IV FLUSH 07/14/17 09:30 (NS Flush) 2 ml BID IV FLUSH 07/14/17 21:00 07/17/17 09:25 (Tylenol) 650 mg Q4H PRN PO 07/14/17 09:30 07/16/17 21:04 (Zofran Inj) 4 mg Q6H PRN IVP 07/14/17 09:30 (Narcan Inj) 0.4 mg UNSCH PRN IV PUSH 07/14/17 09:30 (Sherrell-Colace) 1 tab BID PO 07/14/17 21:00 07/16/17 21:03 (Milk Of Magnesia Liq) 30 ml Q12H PRN PO 07/14/17 09:30 (Senokot) 17.2 mg Q12H PRN PO 07/14/17 09:30 (Dulcolax Supp) 10 mg DAILY PRN RECTAL 07/14/17 09:30 (Lactulose Liq) 30 ml DAILY PRN PO 07/14/17 09:30 (Melatonin) 5 mg HS PRN PO 07/14/17 16:30 07/16/17 02:38 (Aricept) 10 mg HS PO 07/15/17 21:00 07/16/17 21:03 (Synthroid) 50 mcg DAILY@0600 PO 07/15/17 06:00 07/17/17 05:43 (Cozaar) 50 mg DAILY PO 07/15/17 09:00 07/17/17 09:23 Patient Own Medication PT OWN MED: NON-FORMULARY D... DAILY PO 07/15/17 09:00 Future Hold (Cytomel) 25 mcg DAILY PO 07/17/17 09:00 07/17/17 09:24 (Vitamin B12 Inj) 1,000 mcg Q30D IM 07/16/17 15:00 07/16/17 16:17 (SEROquel) 12.5 mg HS PO 07/16/17 21:00 07/16/17 21:03 (Lovenox Inj) 30 mg Q24H SQ 07/16/17 16:00 Future Hold 07/16/17 16:17 (Pill Splitter) 1 ea UNSCH PRN OTHER 07/16/17 15:15 (Pepcid) 20 mg DAILY PO 07/17/17 09:00 07/17/17 09:24 (Pravachol) 20 mg DAILY PO 07/17/17 09:00 07/17/17 09:23 (Lopressor) 12.5 mg Q12HR PO 07/16/17 21:00 07/17/17 09:23 (Ferrous Sulfate) 325 mg BID PO 07/16/17 21:00 07/17/17 09:24 (Namenda) 5 mg DAILY PO 07/18/17 09:00 Vital Signs / I&O Vital Signs Date Time Temp Pulse Resp B/P (MAP) Pulse Ox O2 Delivery O2 Flow Rate FiO2 07/17/17 12:24 98.7 65 18 165/83 (110) 100 07/17/17 11:14 53 07/17/17 09:28 100 07/17/17 09:01 97.8 72 16 134/76 (95) 100 07/17/17 07:32 63 07/17/17 04:00 97.7 72 22 150/76 (100) 97 07/17/17 00:10 97.9 64 23 145/75 (98) 98 07/16/17 20:00 98.8 66 19 151/77 (101) 98 07/16/17 16:00 98.0 66 19 151/76 (101) 95 I/O 07/16/17 07/16/17 07/16/17 07/17/17 07/17/17 07/17/17 07:00 15:00 23:00 07:00 15:00 23:00 Intake Total 1450 ml 560 ml 500 ml 200 ml Output Total 450 ml 1200 ml 2000 ml 3500 ml Balance 1000 ml -640 ml -1500 ml -3300 ml Intake Oral 450 ml 560 ml 500 ml 200 ml IV Total 1000 ml Output Urine Total 450 ml 1200 ml 2000 ml 3500 ml # Voids 10 5 1 # Bowel Movements 0 3 0 0 Physical Exam GENERAL: Elderly male, NAD SKIN: Warm and dry. HEAD: Normocephalic. EYES: No scleral icterus. No injection or drainage. NECK: Supple, trachea midline. CARDIOVASCULAR: Regular rate and rhythm without murmurs, gallops, or rubs. RESPIRATORY: Breath sounds equal bilaterally. No accessory muscle use. GASTROINTESTINAL: Abdomen soft, non-tender, nondistended. MUSCULOSKELETAL: No cyanosis, or edema. BACK: Nontender without obvious deformity. No CVA tenderness. Laboratory Laboratory Tests Test 07/16/17 17:50 (Rosangela Willis) Assessment and Plan Assessment and Plan Unwitnessed syncopal episode, found unresponsive. Likely exacerbated by infection. Patient had fever the day before event. SSS s/p PPM Carotid stenosis HTN HLD PLAN: There is not evidence of cardiac etiology of admission. We will sign off. Please reconsult with any acute changes from a cardiac standpoint Patient seen and evaluated by Dr Mccullough who completed face to face encounter and physical and participated in evaluation and management. (Rosangela Willis) Assessment and Plan The exam, history, and the medical decision-making described in the above note were completed with the assistance of the mid-level provider. I reviewed and agree with the findings presented. I attest that I had a [id number] encounter with the patient on the same day, and personally performed and documented my assessment and findings in the medical record. Overall mainly cerebral symptoms (Hannah Mccullough MD) Rosangela Willis Jul 17, 2017 14:43 Hannah Mccullough MD Jul 17, 2017 18:46
[2017-07-17] MEDS: ACETAMINOPHEN 325 MG TAB PO PRN ×2 (16:12→22:25)
[2017-07-17] MEDS: DONEPEZIL HCL 5 MG TAB PO SCH (20:24)
[2017-07-17] MEDS: QUEtiapine FUMARATE 25 MG TAB PO SCH (20:24)
[2017-07-17] MEDS: MELATONIN 5 MG TAB PO PRN (22:24)
[2017-07-18] VITALS (10 sets, daily range): BP systolic 118–158; BP diastolic 63–91; PULSE 53–99; RESP 16–20; TEMP 97.8–98.9; O2SAT 95–97
[2017-07-18] MEDS: LEVOTHYROXINE SODIUM 50 MCG TAB PO SCH (05:41)
[2017-07-18] MEDS: LIOTHYRONINE SODIUM 25 MCG TAB PO SCH (08:22)
[2017-07-18] MEDS: LOSARTAN 50 MG TAB PO SCH (08:22)
[2017-07-18] MEDS: PRAVASTATIN SOD 20 MG TAB PO SCH (08:22)
[2017-07-18] MEDS: FERROUS SULFATE 325 MG (65 MG ELEMENTAL IRON) TAB PO SCH ×2 (08:22→21:55)
[2017-07-18] MEDS: METOPROLOL TARTRATE 25 MG TAB PO SCH ×2 (08:23→22:01)
[2017-07-18] MEDS: SODIUM CHLORIDE 0.9% FLUSH 10 ML FLUSH IV FLUSH SCH ×2 (08:23→21:00)
[2017-07-18] MEDS: FAMOTIDINE 20 MG TAB PO SCH (08:23)
[2017-07-18] MEDS: MEMANTINE HCL 5 MG TAB PO SCH (08:23)
[2017-07-18] MEDS: DOCUSATE SODIUM 50 MG/SENNA 8.6 MG TAB PO SCH ×2 (08:24→21:00)
--- NOTE | 2017-07-18 12:00 | HHI.PR ---
Subjective Remarks patient childlike, giggling, no meaingful verbal output Objective Vitals Vital Signs Date Time Temp Pulse Resp B/P (MAP) Pulse Ox O2 Delivery O2 Flow Rate FiO2 07/18/17 08:05 98.4 65 20 118/91 (100) 97 07/18/17 07:25 53 07/18/17 04:21 98.6 65 17 127/63 (84) 95 07/18/17 00:39 98.6 62 17 134/65 (88) 95 07/17/17 20:07 98.6 70 17 129/73 (91) 99 07/17/17 16:32 98.2 68 18 140/84 (102) 93 07/17/17 12:24 98.7 65 18 165/83 (110) 100 I/O 07/17/17 07/17/17 07/17/17 07/18/17 07/18/17 07/18/17 07:00 15:00 23:00 07:00 15:00 23:00 Intake Total 200 ml 600 ml 120 ml Output Total 3500 ml Balance -3300 ml 600 ml 120 ml Intake Oral 200 ml 600 ml 120 ml Output Urine Total 3500 ml # Voids 1 5 2 # Bowel Movements 0 1 Result Diagram: 07/15/1763207/15/17632 Imaging Last Impressions Neck Magnetic Resonance Angiography 07/14/17842 Signed Impressions: Service Date/Time: Friday, July 14, 2017 17:10 - CONCLUSION: Normal examination. Ant Campbell MD Head Magnetic Resonance Angiography 07/14/17842 Signed Impressions: Service Date/Time: Friday, July 14, 2017 17:10 - CONCLUSION: No acute disease. Bret Pereira Jr., MD Brain MRI 07/14/17842 Signed Impressions: Service Date/Time: Friday, July 14, 2017 17:10 - CONCLUSION: Normal examination for a patient of this age. Ant Campbell MD Chest X-Ray 07/14/17705 Signed Impressions: Service Date/Time: Friday, July 14, 2017 07:30 - CONCLUSION: Underinflated examination with atelectasis at the lung bases. Otherwise, no acute finding is identified. Santy Hernadez MD Objective Remarks awake, smiled, [employer] when hands held, puckering faces, ? aphasia anicteric pupils equal no nuchal rigidity no rales or wheezes regular rhythm abdomen soft, no guarding extremities no edema moves all extremities spontaneously A/P Assessment and Plan Mr. Hendricks is a 71 year old male with a history of dementia who presented to the ED after he was found unresponsive by his . Day prior to this admission , she brought him to the ED due to 5-6 day duration of increased confusion, shuffling gait. - Acute encephalopathy- expressive aphasia, childlike Advance dementia - Although he has dementia, apparently his degree of confusion is much more profound than he normally is. per daughter- new onset decline in MS and functioning - MRI reviewed. Neurology ff - continue on Namenda and Aricept -speech therapy ff- for cognitive evaluation - on mechanical soft diet - wrok up in progress for LP today d/w - wants to pursue LP - PT in am after LP -Hyponatremia NA improved to 133. ff BMP -History of hypothyroidsim on synthroid 50 mcg po daily low T3 - started cytomel 25 mcg po daily - Alzheimer's dementia - recent decompensation - Will continue home medications. -appreciate Dr. Navarro's recommendation Namenda added to regimen - History of PM Hypertension - Does not appear to be related to patient's clinical symptoms. Cardiology ff Patient has a [employer] pacemaker. continue on Cozaar will restart his Lopressor at 12.5 mg po bid. Hold Plavix Anemia- low iron stores start Ferrous sulfate 325 mg po bid on H2 davy Low B12- give B12 IM x 1 then q 30 days Deconditioning- PT daily Lovenox for DVT prophylaxis CM - DC planning- SNF Full code. Gama Patel MD Jul 18, 2017 12:00
--- NOTE | 2017-07-18 14:55 | PD.RAD ---
Post Procedure Progress Note Pre Procedure Diagnosis: (1) Altered mental status Post Procedure Diagnosis: (1) Altered mental status Procedure Date: Jul 18, 2017 Supervising Radiologist: rBet Pereira JR Proceduralist/Assist: Vidal Alonzo RT(R), RT Samira(R) Anesthesia: Local Plan of Activity Patient to Unit: Nursing Unit Patient Condition: Good See PACS Report for procedural detail/treatment Spinal Procedure Lumbar Puncture L3-L4 Fluid Removal (CCs): 10 Fluid Description: Clear Puncture Time: 14:47 Findings: Opening pressure: 11 cmH2o Jr. Randall,Bret Hoang MD Jul 18, 2017 14:55
--- NOTE | 2017-07-18 14:55 | PD.RAD ---
Post Procedure Progress Note Pre Procedure Diagnosis: (1) Altered mental status Post Procedure Diagnosis: (1) Altered mental status Procedure Date: Jul 18, 2017 Supervising Radiologist: Bret Pereira JR Proceduralist/Assist: Vidal Alonzo RT(R), RT Samira(R) Anesthesia: Local Plan of Activity Patient to Unit: Nursing Unit Patient Condition: Good See PACS Report for procedural detail/treatment Spinal Procedure Lumbar Puncture L3-L4 Fluid Removal (CCs): 10 Fluid Description: Clear Puncture Time: 14:47 Findings: Opening pressure: 11 cmH2o Jr. Randall,Bret Hoang MD Jul 18, 2017 14:55
--- NOTE | 2017-07-18 15:33 | RADRPT ---
EXAM DATE/TIME: 07/18/2017 14:27 [facility] COMPARISON: No previous studies available for comparison. INDICATIONS : Patient with altered mental status in need of lumbar puncture with opening pressures. MEDICAL HISTORY : 1.AMS 2.CAD 3.Alzheimer's disease 4.HTN 5.Encephalopathy SURGICAL HISTORY : 1.Pacemaker 2.CABG x 2 ENCOUNTER: Initial ACUITY: 4 - 6 days PAIN SCORE: 0/10 LUMBAR PUNCTURE TIME: 1447 hours FLUORO TIME: 1.4 minutes 0 ACCESS LEVEL: L3-4 OPENING PRESSURE: 11 cm of water CLOSING PRESSURE: Not requested. FLUID: 9.5 cc of clear CSF was collected and sent to the laboratory for analysis. PROCEDURE : 1. Fluoroscopic guided lumbar puncture. 2. Recording of opening pressure. The risks, benefits and alternatives to the procedure were explained and verbal and written consent w as obtained. The site was prepped in sterile fashion. Full sterile technique was used, including ca p, mask, sterile gloves and gown and a large sterile sheet. Hand hygiene and 2% chlorhexidine and/or betadine/alcohol prep was utilized per protocol for cutaneous antisepsis. The skin and subcutaneous tissues were infiltrated with local anesthetic solution. With fluoroscopic guidance the lumbar thecal sac was punctured at the above level described above and the opening pressure was recorded. The above described fluid was removed without difficulty. The patient tolerated the procedure well and there were no complications. CONCLUSION: Uncomplicated fluoroscopically guided lumbar puncture with pressures as above. Bret Pereira Jr., MD on July 18, 2017 at 15:31 Board Certified Radiologist. This report was verified electronically.
--- NOTE | 2017-07-18 15:51 | HHI.PR ---
Review/Management Diagnosis 1 . History of Alzheimer's disease 2. Encephalopathy. 3. Pacemaker 4. Hypertension. 5. Coronary artery disease status post coronary artery bypass graft Evaluation and counselling: - I discussed at length with the family members, daughter who comes from [place] and sister who lives locally, the current neurologic status of the patient and the possible etiologic factors that may have contributed to the decline of the patient's cognition, like an ongoing infection, s/p flu vaccination with a low grade fever that has been ongoing, and that there has been some fluctuation in the level of awareness with infrequent myoclonic activity that may go with LBD, as a presumptive diagnosis, another unlikely possible diagnosis is encephalitis. - The family members are concerned about an infectious process or GBS as per their friend MD suggestion, I explained to them that at this time there in no clinical evidence that the clinical picture is of GBS, they want to pursue LP that was raised as a possible diagnostic tool in yesterday's discussion to rule out any infectious pathology or chronic prion disease Plan - Neuro checks q. one hourly. - Fall precautions. - LP for CSF analysis, for chemistry, cytology, viral assay, prion disease [ 14.3.3. protein ] - Obtain vitamin B1 level - Supportive medical therapy for hyponatremia and hypothyroidism. - DVT prophylaxis. - TIA prophylaxis. - Continue Aricept and Namenda at current home doses. Diagnosis/Plan: Subjective Subjective Comments No acute events reported No headache No chest pain No dyspnea Active Medications Current Medications Medications (Trade) Dose Ordered Sig/Beth Route Start Time Stop Time Status Last Admin (NS Flush) 2 ml UNSCH PRN IV FLUSH 07/14/17 09:30 (NS Flush) 2 ml BID IV FLUSH 07/14/17 21:00 07/18/17 08:23 (Tylenol) 650 mg Q4H PRN PO 07/14/17 09:30 07/17/17 22:25 (Zofran Inj) 4 mg Q6H PRN IVP 07/14/17 09:30 (Narcan Inj) 0.4 mg UNSCH PRN IV PUSH 07/14/17 09:30 (Sherrell-Colace) 1 tab BID PO 07/14/17 21:00 07/16/17 21:03 (Milk Of Magnesia Liq) 30 ml Q12H PRN PO 07/14/17 09:30 (Senokot) 17.2 mg Q12H PRN PO 07/14/17 09:30 (Dulcolax Supp) 10 mg DAILY PRN RECTAL 07/14/17 09:30 (Lactulose Liq) 30 ml DAILY PRN PO 07/14/17 09:30 (Melatonin) 5 mg HS PRN PO 07/14/17 16:30 07/17/17 22:24 (Aricept) 10 mg HS PO 07/15/17 21:00 07/17/17 20:24 (Synthroid) 50 mcg DAILY@0600 PO 07/15/17 06:00 07/18/17 05:41 (Cozaar) 50 mg DAILY PO 07/15/17 09:00 07/18/17 08:22 Patient Own Medication PT OWN MED: NON-FORMULARY D... DAILY PO 07/15/17 09:00 Future Hold (Cytomel) 25 mcg DAILY PO 07/17/17 09:00 07/18/17 08:22 (Vitamin B12 Inj) 1,000 mcg Q30D IM 07/16/17 15:00 07/16/17 16:17 (SEROquel) 12.5 mg HS PO 07/16/17 21:00 07/17/17 20:24 (Lovenox Inj) 30 mg Q24H SQ 07/16/17 16:00 Future Hold 07/16/17 16:17 (Pill Splitter) 1 ea UNSCH PRN OTHER 07/16/17 15:15 (Pepcid) 20 mg DAILY PO 07/17/17 09:00 07/18/17 08:23 (Pravachol) 20 mg DAILY PO 07/17/17 09:00 07/18/17 08:22 (Lopressor) 12.5 mg Q12HR PO 07/16/17 21:00 07/18/17 08:23 (Ferrous Sulfate) 325 mg BID PO 07/16/17 21:00 07/18/17 08:22 (Namenda) 5 mg DAILY PO 07/18/17 09:00 07/18/17 08:23 Allergies Allergies Coded Allergies No Known Allergies ([id number]/16) Review of Systems All other ROS: ROS reviewed as documented in chart Exam I&O / VS Vital Signs Date Time Temp Pulse Resp B/P (MAP) Pulse Ox O2 Delivery O2 Flow Rate FiO2 07/18/17 12:29 98.9 68 16 130/72 (91) 96 07/18/17 08:05 98.4 65 20 118/91 (100) 97 07/18/17 07:25 53 07/18/17 04:21 98.6 65 17 127/63 (84) 95 07/18/17 00:39 98.6 62 17 134/65 (88) 95 07/17/17 20:07 98.6 70 17 129/73 (91) 99 07/17/17 16:32 98.2 68 18 140/84 (102) 93 Exam Comments GENERAL: Awake, alert, poor historian not in apparent distress, pleasantly demented. HEENT: Atraumatic, normocephalic. Intact hearing. Intact vision. NECK: Soft, supple. No signs of meningeal irritation. CARDIOVASCULAR: Regular rate and rhythm. RESPIRATORY: Clear to auscultation GASTROINTESTINAL: Soft, nontender MUSCULOSKELETAL: Moves four extremities. No clubbing or cyanosis. NEUROLOGIC: Awake, alert, oriented to person, not to time or place. Speaks with a soft voice. Intact naming, poor comprehension and judgment. Positive Myerson sign. Cranial nerves are grossly intact. Motor system examination unable to accurately assess the muscle strength because of the lack of the cooperation due to the clinical condition. Fidgety movements of the UE. There is rigidity with mild cogwheeling in the bilateral upper and lower extremities with intermittent myoclonus in UE. Reflexes 1+ bilateral symmetrical. Plantars are bilaterally downgoing. Cerebellar functions unable to assess due to the condition of the patient. Objective Micro and Labs Laboratory Tests Test 07/18/17 14:47 Date/Time Source Procedure Growth Status 07/14/17 07:20 Blood Peripheral Aerobic Blood Culture - Preliminary NO GROWTH IN 4 DAYS Resulted 07/14/17 07:20 Blood Peripheral Anaerobic Blood Culture - Preliminary NO GROWTH IN 4 DAYS Resulted Silver Michael MD Jul 18, 2017 15:51
[2017-07-18 15:54] LABS: TOTAL PROTEIN,CSF 119.3 MG/DL (15.0-45.0)
[2017-07-18 16:54] LABS: SUPERNATE COLOR TUBE #1 CLEAR (CLEAR); VOLUME TUBE # 1 2.5 ML
[2017-07-18 16:55] LABS: CSF EOSINOPHILS 1 %; CSF LYMPHOCYTES 95 %; CSF MONOCYTES 3 %; CSF NEUTROPHILS 1 %; RBC TUBE #4 0 /MM3; WBC TUBE #4 338 /MM3 (0-10)
[2017-07-18] MEDS: DONEPEZIL HCL 5 MG TAB PO SCH (21:55)
[2017-07-18] MEDS: QUEtiapine FUMARATE 25 MG TAB PO SCH (21:59)
[2017-07-19] VITALS (7 sets, daily range): BP systolic 115–145; BP diastolic 64–85; PULSE 72–97; RESP 16–20; TEMP 97.8–99.4; O2SAT 90–98
[2017-07-19] MEDS: LEVOTHYROXINE SODIUM 50 MCG TAB PO SCH (05:33)
[2017-07-19] MEDS: DOCUSATE SODIUM 50 MG/SENNA 8.6 MG TAB PO SCH ×2 (09:00→20:19)
[2017-07-19] MEDS: LIOTHYRONINE SODIUM 25 MCG TAB PO SCH (09:07)
[2017-07-19] MEDS: MEMANTINE HCL 5 MG TAB PO SCH (09:07)
[2017-07-19] MEDS: LOSARTAN 50 MG TAB PO SCH (09:07)
[2017-07-19] MEDS: METOPROLOL TARTRATE 25 MG TAB PO SCH ×2 (09:08→20:05)
[2017-07-19] MEDS: SODIUM CHLORIDE 0.9% FLUSH 10 ML FLUSH IV FLUSH SCH ×2 (09:08→20:01)
[2017-07-19] MEDS: FERROUS SULFATE 325 MG (65 MG ELEMENTAL IRON) TAB PO SCH ×2 (09:08→20:20)
[2017-07-19] MEDS: PRAVASTATIN SOD 20 MG TAB PO SCH (09:08)
[2017-07-19] MEDS: FAMOTIDINE 20 MG TAB PO SCH (09:08)
--- NOTE | 2017-07-19 10:06 | HHI.PR ---
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, fidgeting like a child Objective Vitals Vital Signs Date Time Temp Pulse Resp B/P (MAP) Pulse Ox O2 Delivery O2 Flow Rate FiO2 07/19/17 07:40 97.8 72 18 145/80 (101) 98 07/19/17 04:53 99.1 75 16 127/75 (92) 98 07/18/17 23:13 97.8 99 20 144/70 (94) 95 07/18/17 20:00 66 07/18/17 19:45 98.1 90 18 158/82 (107) 95 07/18/17 18:20 96 21 07/18/17 16:07 98.3 70 16 142/77 (98) 96 07/18/17 12:29 98.9 68 16 130/72 (91) 96 I/O 07/18/17 07/18/17 07/18/17 07/19/17 07/19/17 07/19/17 07:00 15:00 23:00 07:00 15:00 23:00 Intake Total 120 ml 720 ml Balance 120 ml 720 ml Intake Oral 120 ml 720 ml # Voids 2 3 # Bowel Movements 1 Result Diagram: 07/15/17 0633 07/15/1733 Imaging Last Impressions Lumbar Puncture Fluoroscopy 07/18/17 0000 Signed Impressions: Service Date/Time: Tuesday, July 18, 2017 14:27 - CONCLUSION: Uncomplicated fluoroscopically guided lumbar puncture with pressures as above. Bret Pereira Jr., MD Neck Magnetic Resonance Angiography 07/14/17 0843 Signed Impressions: Service Date/Time: Friday, July 14, 2017 17:10 - CONCLUSION: Normal examination. Ant Campbell MD Head Magnetic Resonance Angiography 07/14/1743 Signed Impressions: Service Date/Time: Friday, July 14, 2017 17:10 - CONCLUSION: No acute disease. Bret Pereira Jr., MD Brain MRI 07/14/1743 Signed Impressions: Service Date/Time: Friday, July 14, 2017 17:10 - CONCLUSION: Normal examination for a patient of this age. Ant Campbell MD Chest X-Ray 07/14/17 0706 Signed Impressions: Service Date/Time: Friday, July 14, 2017 07:30 - CONCLUSION: Underinflated examination with atelectasis at the lung bases. Otherwise, no acute finding is identified. Santy Hernadez MD Objective Remarks awake giggling, stated his name and spoke some words anicteric pupils equal no nuchal rigidity no rales or wheezes regular rhythm abdomen soft, no guarding extremities no edema moves all extremities spontaneously Procedures 07/18- LP A/P Assessment and Plan Mr. Hendricks is a 71 year old male with a history of dementia who presented to the ED after he was found unresponsive by his . Day prior to this admission , she brought him to the ED due to 5-6 day duration of increased confusion, shuffling gait. Acute encephalopathy- Advance dementia S/P LP-- CSF will leukocytosis, high protein . c and s pending, other studies pending. EEG unremarkable - Although he has dementia, apparently his degree of confusion is much more profound -per daughter- decline in MS and functioning - continue on Namenda and Aricept -speech therapy ff- for cognitive evaluation - on mechanical soft diet - d/w with PT- will need skilled - Neurology ff.- will d/w results. Hyponatremia NA improved to 133. ff BMP -History of hypothyroidsim on synthroid 50 mcg po daily low T3 - started cytomel 25 mcg po daily - Alzheimer's dementia - recent decompensation - Will continue home medications. -appreciate Dr. Navarro's recommendation Namenda added to regimen. continue on Aricept. On Seroquel - History of PM Hypertension Cardiology ff Patient has a [employer] pacemaker. continue on Cozaar will restart his Lopressor at 12.5 mg po bid. Plavix held- for LP Anemia- low iron stores start Ferrous sulfate 325 mg po bid on H2 davy Low B12- give B12 IM x 1 then q 30 days Deconditioning- PT daily- need SNF Lovenox for DVT prophylaxis will start post LP tomorrow CM - DC planning- SNF d/w CM- family requested for hospice evaluation - placed one ADDendum: 4:15 pm d/w Dr. Michael -- CSF results suggestive of viral encephalitis he discussed with family and they would want to pursue medical management consult ID service for recommendations for treatment . need for IV Acyclovir seen also by hospice earlier as family requested - Hospice revoked Gama Patel MD Jul 19, 2017 10:05
--- NOTE | 2017-07-19 16:32 | HHI.PR ---
Review/Management Diagnosis 1 . History of Alzheimer's disease 2. Encephalopathy/encephalitis/viral etiology. 3. Pacemaker 4. Hypertension. 5. Coronary artery disease status post coronary artery bypass graft Evaluation and counselling: - I discussed at length with the family members, son and patient's , the current neurologic status of the patient and the possible etiologic factors that may have contributed to the decline of the patient's cognition, and explained to them the abnormal findings of CSF, and the likely possibility of viral encephalitis - Patient's planned for hospice care, however, after she learned about the results of the CSF, she wanted along with the son, to pursue further medical care - I discussed case with Dr. Patel, and asked for ID consult, to start antiviral therapy Plan - Neuro checks q. one hourly. - Acyclovir iv, ID consult, recommendations are appreciated - Fall precautions. - Supportive medical therapy for hyponatremia and hypothyroidism. - DVT prophylaxis. - TIA prophylaxis. - Continue Aricept and Namenda at current home doses. Diagnosis/Plan: Subjective Subjective Comments Reportedly by son, holds his head with wincing [Headache] and occasional myoclonic movements No reported fever LP revealed elevated WBC, and protein, normal glucose Other viral studies are pending and son at bed side Active Medications Current Medications Medications (Trade) Dose Ordered Sig/Beth Route Start Time Stop Time Status Last Admin (NS Flush) 2 ml UNSCH PRN IV FLUSH 07/14/17 09:30 (NS Flush) 2 ml BID IV FLUSH 07/14/17 21:00 07/19/17 09:08 (Tylenol) 650 mg Q4H PRN PO 07/14/17 09:30 07/17/17 22:25 (Zofran Inj) 4 mg Q6H PRN IVP 07/14/17 09:30 (Narcan Inj) 0.4 mg UNSCH PRN IV PUSH 07/14/17 09:30 (Sherrell-Colace) 1 tab BID PO 07/14/17 21:00 07/16/17 21:03 (Milk Of Magnesia Liq) 30 ml Q12H PRN PO 07/14/17 09:30 (Senokot) 17.2 mg Q12H PRN PO 07/14/17 09:30 (Dulcolax Supp) 10 mg DAILY PRN RECTAL 07/14/17 09:30 (Lactulose Liq) 30 ml DAILY PRN PO 07/14/17 09:30 (Melatonin) 5 mg HS PRN PO 07/14/17 16:30 07/17/17 22:24 (Aricept) 10 mg HS PO 07/15/17 21:00 07/18/17 21:55 (Synthroid) 50 mcg DAILY@0600 PO 07/15/17 06:00 07/19/17 05:33 (Cozaar) 50 mg DAILY PO 07/15/17 09:00 07/19/17 09:07 Patient Own Medication PT OWN MED: NON-FORMULARY D... DAILY PO 07/15/17 09:00 Future Hold (Cytomel) 25 mcg DAILY PO 07/17/17 09:00 07/19/17 09:07 (Vitamin B12 Inj) 1,000 mcg Q30D IM 07/16/17 15:00 07/16/17 16:17 (SEROquel) 12.5 mg HS PO 07/16/17 21:00 07/18/17 21:59 (Lovenox Inj) 30 mg Q24H SQ 07/16/17 16:00 Future Hold 07/16/17 16:17 (Pill Splitter) 1 ea UNSCH PRN OTHER 07/16/17 15:15 (Pepcid) 20 mg DAILY PO 07/17/17 09:00 07/19/17 09:08 (Pravachol) 20 mg DAILY PO 07/17/17 09:00 07/19/17 09:08 (Lopressor) 12.5 mg Q12HR PO 07/16/17 21:00 07/19/17 09:08 (Ferrous Sulfate) 325 mg BID PO 07/16/17 21:00 07/19/17 09:08 (Namenda) 5 mg DAILY PO 07/18/17 09:00 07/19/17 09:07 Allergies Allergies Coded Allergies No Known Allergies ([id number]/8/16) Review of Systems All other ROS: ROS reviewed as documented in chart Exam I&O / VS 07/19/17 07/19/17 07/20/17 15:00 23:00 07:00 Intake Total 480 ml Balance 480 ml Intake Oral 480 ml # Voids 3 # Bowel Movements 0 Vital Signs Date Time Temp Pulse Resp B/P (MAP) Pulse Ox O2 Delivery O2 Flow Rate FiO2 07/19/17 15:53 99.4 97 20 115/64 (81) 98 07/19/17 11:29 98.6 85 20 131/85 (100) 96 07/19/17 07:40 97.8 72 18 145/80 (101) 98 07/19/17 07:20 82 07/19/17 04:53 99.1 75 16 127/75 (92) 98 07/18/17 23:13 97.8 99 20 144/70 (94) 95 07/18/17 20:00 66 07/18/17 19:45 98.1 90 18 158/82 (107) 95 07/18/17 18:20 96 21 Exam Comments GENERAL: Awake, alert, not in apparent distress, pleasantly demented, sits on a chair with family at bed side. HEENT: Atraumatic, normocephalic. Intact hearing. Intact vision. NECK: Soft, supple. No signs of meningeal irritation. CARDIOVASCULAR: Regular rate and rhythm. RESPIRATORY: Clear to auscultation GASTROINTESTINAL: Soft, nontender MUSCULOSKELETAL: Moves four extremities. No clubbing or cyanosis. NEUROLOGIC: Awake, alert, oriented to person, not to time or place. Speaks with a soft voice. Intact naming, poor comprehension and judgment. Positive Myerson sign. Cranial nerves are grossly intact. Motor system examination unable to accurately assess the muscle strength because of the lack of the cooperation due to the clinical condition. Fidgety movements of the UE. There is rigidity with mild cogwheeling in the bilateral upper and lower extremities with intermittent myoclonus in UE. Reflexes 1+ bilateral symmetrical. Plantars are bilaterally downgoing. Cerebellar functions unable to assess due to the condition of the patient. Objective Radiology Results Last 72 hours Impressions Lumbar Puncture Fluoroscopy 07/18/17 0000 Signed Impressions: Service Date/Time: Tuesday, July 18, 2017 14:27 - CONCLUSION: Uncomplicated fluoroscopically guided lumbar puncture with pressures as above. Bret Pereira Jr., MD Micro and Labs Date/Time Source Procedure Growth Status 07/14/17 07:20 Blood Peripheral Aerobic Blood Culture - Final NO GROWTH IN 5 DAYS Complete 07/14/17 07:20 Blood Peripheral Anaerobic Blood Culture - Final NO GROWTH IN 5 DAYS Complete 07/18/17 14:47 Cerebral Spinal Fluid Lumbar Puncture Gram Stain - Final Resulted 07/18/17 14:47 Cerebral Spinal Fluid Lumbar Puncture CSF Culture - Preliminary NO GROWTH IN 24 HOURS. Resulted Silver Michael MD Jul 19, 2017 16:32
--- NOTE | 2017-07-19 18:11 | PD.ID.CON ---
History of Present Illness Service ID Consult Requested By and Reason for Consult Evaluation and Mment of Viral meningoencephalitis. Primary Care Physician Mireille Zepeda MD Diagnoses: History of Present Illness Mr. Hendricks is a 71-year-old male with past medical history of Alzheimer's dementia who presented to the emergency department of [facility] due to increased confusion and shuffling gait. History obtained from sister and son in the room. The patient was noted on 07/10/2017 to be more confused than his baseline. He had a shuffling gait and headache. He also reportedly took all of his clothes off and urinated on the floor in the bathroom and his bed. He had a temperature of 100.9. Workup was within normal. The patient was found unresponsive. During the encounter, there is no family at the bedside. Infectious disease workup was ordered and BCx negative so far. No other obvious bacterial focal of infection identified so Neurology consulted. Family agreeable to LP and results show elevated WBC with lymphocytic predominance and elevated total protein s.o possible viral meningitis as the process was subacute. Other possibilities of lymyphocytic meningitis are fungal and AFB meningitis although the latter 2 seem less likely. Syphylitic meningitis is another possibility. Review of Systems ROS Limitations: Poor Historian Constitutional: COMPLAINS OF: Fever, Dizziness, Change in appetite, DENIES: Diaphoretic episodes, Fatigue, Weight gain, Weight loss, Chills, Night Sweats Endocrine: DENIES: Heat/cold intolerance, Polydipsia, Polyuria, Polyphagia Eyes: DENIES: Blurred vision, Diplopia, Eye inflammation, Eye pain, Vision loss , Photosensitivity, Double Vision Ears, nose, mouth, throat: DENIES: Tinnitus, Hearing loss, Vertigo, Nasal discharge, Oral lesions, Throat pain, Hoarseness, Ear Pain, Running Nose, Epistaxis, Sinus Pain, Toothache, Odynophagia Respiratory: DENIES: Apneas, Cough, Snoring, Wheezing, Hemoptysis, Sputum production, Shortness of breath Cardiovascular: DENIES: Chest pain, Palpitations, Syncope, Dyspnea on Exertion , PND, Lower Extremity Edema, Orthopnea, Claudication Gastrointestinal: DENIES: Abdominal pain, Black stools, Bloody stools, Constipation, Diarrhea, Nausea, Vomiting, Difficulty Swallowing, Anorexia Genitourinary: DENIES: Sexual dysfunction, Urinary frequency, Urinary incontinence, Urgency, Hematuria, Dysuria, Nocturia, Penile Discharge, Testicular Pain, Testicular Swelling Musculoskeletal: DENIES: Joint pain, Muscle aches, Stiffness, Joint Swelling, Back pain, Neck pain Integumentary: DENIES: Abnormal pigmentation, Nail changes, Pruritus, Rash Hematologic/lymphatic: DENIES: Bruising, Lymphadenopathy Immunologic/allergic: DENIES: Eczema, Urticaria Neurologic: COMPLAINS OF: Headache, DENIES: Abnormal gait, Localized weakness, Paresthesias, Seizures, Speech Problems, Tremor, Poor Balance Psychiatric: DENIES: Anxiety, Confusion, Mood changes, Depression, Hallucinations, Agitation, Suicidal Ideation, Homicidal Ideation, Delusions ROS by family cannot obtain from pt due to condition. Past Family Social History Allergies: Coded Allergies: No Known Allergies (Verified , 07/02/16) Past Medical History 1. Coronary artery disease status post coronary artery bypass graft. 2. Pacemaker placement 2015. 3. Prostate cancer status post radiation 4. Dementia, 5. Hypertension. Past Surgical History Coronary artery bypass graft times four. Reported Medications I attest I reviewed, obtained or updated pts home meds and current meds for name , freq, dose and route of administration. Reported Meds & Active Scripts Active Reported Claritin (Loratadine) 10 Mg Cap 10 Mg PO DAILY Alendronate (Alendronate Sodium) 70 Mg Tab 70 Mg PO Q7D Metoprolol Tartrate 25 Mg Tab 25 Mg PO BID Donepezil 10 Mg Tab 10 Mg PO HS Clopidogrel (Clopidogrel Bisulfate) 75 Mg Tab 75 Mg PO DAILY Losartan (Losartan Potassium) 50 Mg Tab 50 Mg PO DAILY Namenda Xr (Memantine) 28 Mg Caper 28 Mg PO DAILY Fish Oil + D3 (Fish Oil-Cholecalciferol) 1,200-1,000 Mg-Unit Cap 1 Cap PO DAILY Famotidine 20 Mg Tab 20 Mg PO DAILY Alprazolam 0.25 Mg Tab 0.25 Mg PO Q6H PRN Sertraline (Sertraline HCl) 50 Mg Tab 50 Mg PO DAILY Levothyroxine (Levothyroxine Sodium) 50 Mcg Tab 50 Mcg PO DAILY Allopurinol 300 Mg Tab 300 Mg PO DAILY Simvastatin 20 Mg Tab 10 Mg PO DAILY Active Ordered Medications Current Medications Medications (Trade) Dose Ordered Sig/Beth Route Start Time Stop Time Status Last Admin (NS Flush) 2 ml UNSCH PRN IV FLUSH 07/14/17 09:30 (NS Flush) 2 ml BID IV FLUSH 07/14/17 21:00 07/19/17 09:08 (Tylenol) 650 mg Q4H PRN PO 07/14/17 09:30 07/17/17 22:25 (Zofran Inj) 4 mg Q6H PRN IVP 07/14/17 09:30 (Narcan Inj) 0.4 mg UNSCH PRN IV PUSH 07/14/17 09:30 (Sherrell-Colace) 1 tab BID PO 07/14/17 21:00 07/16/17 21:03 (Milk Of Magnesia Liq) 30 ml Q12H PRN PO 07/14/17 09:30 (Senokot) 17.2 mg Q12H PRN PO 07/14/17 09:30 (Dulcolax Supp) 10 mg DAILY PRN RECTAL 07/14/17 09:30 (Lactulose Liq) 30 ml DAILY PRN PO 07/14/17 09:30 (Melatonin) 5 mg HS PRN PO 07/14/17 16:30 07/17/17 22:24 (Aricept) 10 mg HS PO 07/15/17 21:00 07/18/17 21:55 (Synthroid) 50 mcg DAILY@0600 PO 07/15/17 06:00 07/19/17 05:33 (Cozaar) 50 mg DAILY PO 07/15/17 09:00 07/19/17 09:07 Patient Own Medication PT OWN MED: NON-FORMULARY D... DAILY PO 07/15/17 09:00 Future Hold (Cytomel) 25 mcg DAILY PO 07/17/17 09:00 07/19/17 09:07 (Vitamin B12 Inj) 1,000 mcg Q30D IM 07/16/17 15:00 07/16/17 16:17 (SEROquel) 12.5 mg HS PO 07/16/17 21:00 07/18/17 21:59 (Lovenox Inj) 30 mg Q24H SQ 07/16/17 16:00 Future Hold 07/16/17 16:17 (Pill Splitter) 1 ea UNSCH PRN OTHER 07/16/17 15:15 (Pepcid) 20 mg DAILY PO 07/17/17 09:00 07/19/17 09:08 (Pravachol) 20 mg DAILY PO 07/17/17 09:00 07/19/17 09:08 (Lopressor) 12.5 mg Q12HR PO 07/16/17 21:00 07/19/17 09:08 (Ferrous Sulfate) 325 mg BID PO 07/16/17 21:00 07/19/17 09:08 (Namenda) 5 mg DAILY PO 07/18/17 09:00 07/19/17 09:07 Acyclovir Sodium 843 mg/Sodium Chloride 150 ml @ 150 mls/hr Q8H IV 07/19/17 17:30 UNV Family History could not be obtained. Social History No alcohol, no smoking no illicits. Daughter, Sister and pts son in room and involved in care of patient. Physical Exam Vital Signs Vital Signs Date Time Temp Pulse Resp B/P (MAP) Pulse Ox O2 Delivery O2 Flow Rate FiO2 07/19/17 15:53 99.4 97 20 115/64 (81) 98 07/19/17 11:29 98.6 85 20 131/85 (100) 96 07/19/17 07:40 97.8 72 18 145/80 (101) 98 07/19/17 07:20 82 07/19/17 04:53 99.1 75 16 127/75 (92) 98 07/18/17 23:13 97.8 99 20 144/70 (94) 95 07/18/17 20:00 66 07/18/17 19:45 98.1 90 18 158/82 (107) 95 07/18/17 18:20 96 21 Physical Exam GENERAL: This is a well-nourished, well-developed patient, in no apparent distress. SKIN: No rashes, ecchymoses or lesions. Cool and dry. HEAD: Atraumatic. Normocephalic. No temporal or scalp tenderness. EYES: Pupils equal round and reactive. Extraocular motions intact. No scleral icterus. No injection or drainage. ENT: Nose without bleeding, purulent drainage or septal hematoma. Throat without erythema, tonsillar hypertrophy or exudate. Uvula midline. Airway patent. NECK: Trachea midline. CARDIOVASCULAR: Regular rate and rhythm without murmurs, gallops, or rubs. RESPIRATORY: Clear to auscultation. Breath sounds equal bilaterally. No wheezes , rales, or rhonchi. GASTROINTESTINAL: Abdomen soft, non-tender, nondistended. MUSCULOSKELETAL: Extremities without clubbing, cyanosis, or edema. No joint tenderness, effusion, or edema noted. No calf tenderness. Negative Homans sign bilaterally. NEUROLOGICAL: Awake and alert. Speech soft spoken. Some abnormal movts noted. Tone slightly increased. Plantars downgoing. ? neck pain on flexion. Psych cooperative IV line sites with no e.o infection. Laboratory Date/Time Source Procedure Growth Status 07/14/17 07:20 Blood Peripheral Aerobic Blood Culture - Final NO GROWTH IN 5 DAYS Complete 07/14/17 07:20 Blood Peripheral Anaerobic Blood Culture - Final NO GROWTH IN 5 DAYS Complete 07/18/17 14:47 Cerebral Spinal Fluid Lumbar Puncture Gram Stain - Final Resulted 07/18/17 14:47 Cerebral Spinal Fluid Lumbar Puncture CSF Culture - Preliminary NO GROWTH IN 24 HOURS. Resulted Result Diagram: 07/15/1733 07/15/1733 Imaging Last Impressions Lumbar Puncture Fluoroscopy 07/18/17 0000 Signed Impressions: Service Date/Time: Tuesday, July 18, 2017 14:27 - CONCLUSION: Uncomplicated fluoroscopically guided lumbar puncture with pressures as above. Bret Pereira Jr., MD Neck Magnetic Resonance Angiography 07/14/1743 Signed Impressions: Service Date/Time: Friday, July 14, 2017 17:10 - CONCLUSION: Normal examination. Ant Campbell MD Head Magnetic Resonance Angiography 07/14/1743 Signed Impressions: Service Date/Time: Friday, July 14, 2017 17:10 - CONCLUSION: No acute disease. Bret Pereira Jr., MD Brain MRI 07/14/1743 Signed Impressions: Service Date/Time: Friday, July 14, 2017 17:10 - CONCLUSION: Normal examination for a patient of this age. Ant Campbell MD Chest X-Ray 07/14/17 0706 Signed Impressions: Service Date/Time: Friday, July 14, 2017 07:30 - CONCLUSION: Underinflated examination with atelectasis at the lung bases. Otherwise, no acute finding is identified. 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 For completion of workup added Fungal and AFB cultures plus VZV PCR. acute encephalopathy; change from baseline Baseline Dementia Urinary incontinence likely related to acute process. Recs Start Acyclovir IV for viral meningitis Follow HSV PCR Check VZV PCR. No known prior shingles but has had herpes simplex like cold sores. Check CSF AFB and Fungal cultures can present as lymphocytic meningitis for completion of workup. Follow encephalitis panel Follow CSF VDRL. No known syphilis in past. Again can cause lymphocytic predominant meningitis. MRI with no gumma or lesions. Follow clinically. If viral due to HSV or VZV will start seeing response in 48 - 72 hrs. If other viral etiologies may not see the neuro improvement. Veronica.marina family about this fact. Also explained lymphocytic predominance can be from other etiologies as well. PICC line placement will be a challenge but will assess on follow up. No PICC till cleared by ID. tamyw pt son and sister in room dKelseyw and Majo Chapman MD Jul 19, 2017 18:11
[2017-07-19] MEDS: SODIUM CHLORIDE 0.9% IV SCH (20:01)
[2017-07-19] MEDS: ACYCLOVIR IV SCH (20:01)
[2017-07-19] MEDS: DONEPEZIL HCL 5 MG TAB PO SCH (20:03)
[2017-07-19] MEDS: QUEtiapine FUMARATE 25 MG TAB PO SCH (20:03)
[2017-07-20] MEDS: ACYCLOVIR IV SCH ×3 (04:05→20:00)
[2017-07-20] MEDS: SODIUM CHLORIDE 0.9% IV SCH ×3 (04:05→20:00)
[2017-07-20] MEDS: LEVOTHYROXINE SODIUM 50 MCG TAB PO SCH (05:25)
[2017-07-20 07:40] LABS: AUTOMATED NEUTROPHIL # 6.2 TH/MM3 (1.8-7.7); BASOPHIL % 0.5 % (0.0-2.0); EOSINOPHIL # 0.1 TH/MM3 (0-0.4); EOSINOPHIL % 1.2 % (0.0-4.0); HEMATOCRIT 34.3 % (39.0-51.0); HEMOGLOBIN 11.7 GM/DL (13.0-17.0); LYMPH % 9.3 % (9.0-44.0); LYMPHOCYTE # 0.8 TH/MM3 (1.0-4.8); MEAN CORPUSCULAR HEMOGLOBIN 30.3 PG (27.0-34.0); MEAN PLATELET VOLUME 7.7 FL (7.0-11.0); MONO % 13.6 % (0.0-8.0); MONOCYTE # 1.1 TH/MM3 (0-0.9); NEUT % 75.4 % (16.0-70.0); PLATELET COUNT 196 TH/MM3 (150-450); RED BLOOD COUNT 3.85 MIL/MM3 (4.50-5.90); RED CELL DISTRIBUTION WIDTH 15.4 % (11.6-17.2); WHITE BLOOD COUNT 8.2 TH/MM3 (4.0-11.0)
[2017-07-20] MEDS: LIOTHYRONINE SODIUM 25 MCG TAB PO SCH (07:52)
[2017-07-20] MEDS: FERROUS SULFATE 325 MG (65 MG ELEMENTAL IRON) TAB PO SCH ×2 (07:52→20:13)
[2017-07-20] MEDS: MEMANTINE HCL 5 MG TAB PO SCH (07:52)
[2017-07-20] MEDS: LOSARTAN 50 MG TAB PO SCH (07:52)
[2017-07-20] MEDS: SODIUM CHLORIDE 0.9% FLUSH 10 ML FLUSH IV FLUSH SCH ×2 (07:52→20:12)
[2017-07-20] MEDS: FAMOTIDINE 20 MG TAB PO SCH (07:52)
[2017-07-20] MEDS: PRAVASTATIN SOD 20 MG TAB PO SCH (07:52)
[2017-07-20] MEDS: DOCUSATE SODIUM 50 MG/SENNA 8.6 MG TAB PO SCH ×2 (07:52→20:13)
[2017-07-20] MEDS: METOPROLOL TARTRATE 25 MG TAB PO SCH ×2 (07:52→20:13)
[2017-07-20 08:01] VITALS: BP 133/65; PULSE 77; RESP 18; TEMP 99.6; O2SAT 100
[2017-07-20 09:00] LABS: ALBUMIN 3.9 GM/DL (3.4-5.0); AST (GOT) 25 U/L (15-37); BICARBONATE 25.8 MEQ/L (21.0-32.0); BLOOD UREA NITROGEN 16 MG/DL (7-18); CALCIUM 9.6 MG/DL (8.5-10.1); CHLORIDE 99 MEQ/L (98-107); CREATININE 1.59 MG/DL (0.60-1.30); GLOMERULAR FILTRATION RATE 43 ML/MIN (>89); GLUCOSE,RANDOM 92 MG/DL (74-106); SODIUM (NA) 133 MEQ/L (136-145)
[2017-07-20 09:01] LABS: ALT (GPT) 28 U/L (12-78)
[2017-07-20 09:04] LABS: ALKALINE PHOSPHATASE 99 U/L (45-117); TOTAL BILIRUBIN ADULT 0.7 MG/DL (0.2-1.0)
[2017-07-20 09:22] LABS: HSV 1,PCR Negative (Negative)
--- NOTE | 2017-07-20 10:01 | HHI.PR ---
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 Objective Vitals Vital Signs Date Time Temp Pulse Resp B/P (MAP) Pulse Ox O2 Delivery O2 Flow Rate FiO2 07/20/17 08:01 99.6 77 18 133/65 (87) 100 07/19/17 23:54 98.9 91 18 140/77 (98) 96 07/19/17 20:13 98.4 84 16 140/83 (102) 90 07/19/17 15:53 99.4 97 20 115/64 (81) 98 07/19/17 11:29 98.6 85 20 131/85 (100) 96 I/O 07/19/17 07/19/17 07/19/17 07/20/17 07/20/17 07/20/17 07:00 15:00 23:00 07:00 15:00 23:00 Intake Total 480 ml 150 ml 150 ml Balance 480 ml 150 ml 150 ml Intake Oral 480 ml IV Total 150 ml 150 ml # Voids 3 2 # Bowel Movements 0 0 Result Diagram: 07/20/17 0704 07/20/17 0704 Imaging Last Impressions Lumbar Puncture Fluoroscopy 07/18/17 0000 Signed Impressions: Service Date/Time: Tuesday, July 18, 2017 14:27 - CONCLUSION: Uncomplicated fluoroscopically guided lumbar puncture with pressures as above. Bret Pereira Jr., MD Neck Magnetic Resonance Angiography 07/14/1743 Signed Impressions: Service Date/Time: Friday, July 14, 2017 17:10 - CONCLUSION: Normal examination. Ant Campbell MD Head Magnetic Resonance Angiography 07/14/1743 Signed Impressions: Service Date/Time: Friday, July 14, 2017 17:10 - CONCLUSION: No acute disease. Bret Pereira Jr., MD Brain MRI 07/14/1743 Signed Impressions: Service Date/Time: Friday, July 14, 2017 17:10 - CONCLUSION: Normal examination for a patient of this age. Ant Campbell MD Chest X-Ray 07/14/17 0706 Signed Impressions: Service Date/Time: Friday, July 14, 2017 07:30 - CONCLUSION: Underinflated examination with atelectasis at the lung bases. Otherwise, no acute finding is identified. Santy Hernadez MD Objective Remarks stated his name , "yes" anicteric pupils equal no nuchal rigidity no rales or wheezes regular rhythm abdomen soft, no guarding extremities no edema moves all extremities spontaneously Procedures 07/18- LP A/P Assessment and Plan Mr. Hendricks is a 71 year old male with a history of dementia who presented to the ED after he was found unresponsive by his . Day prior to this admission , she brought him to the ED due to 5-6 day duration of increased confusion, shuffling gait. Acute encephalopathy-- Viral encephalitis Advance dementia S/P LP-- CSF will leukocytosis, high protein . c and s pending,- additional studies pending. EEG unremarkable - Although he has dementia, apparently his degree of confusion is much more profound -per daughter- decline in MS and functioning - continue on Namenda and Aricept -speech therapy ff- for cognitive evaluation - on mechanical soft diet - d/w with PT- will need skilled - Neurology ff.- - appreciate ID recommendation- started on IV Acyclovir -Acute kidney injury- likely secondary to poor po- due to cognitive decline start IVF hydration continue to monitor po intake- ? candidate for tube feedings ff BMP Hyponatremia- stable NA improved to 133. ff BMP -History of hypothyroidsim on synthroid 50 mcg po daily low T3 - started cytomel 25 mcg po daily - Alzheimer's dementia - recent decompensation - Will continue home medications. -appreciate Dr. Navarro's recommendation Namenda + Aricept. On Seroquel - History of PM Hypertension Cardiology ff Patient has a [employer] pacemaker. continue on Cozaar restart his Lopressor at 12.5 mg po bid. restart Plavix Anemia- low iron stores start Ferrous sulfate 325 mg po bid on H2 davy Low B12- given B12 IM x 1 then q 30 days Deconditioning- PT daily- need SNF Lovenox for DVT prophylaxis restart CM - DC planning- SNF 07/19 ADDendum: 4:15 pm d/w Dr. Michael -- CSF results suggestive of viral encephalitis he discussed with family and they would want to pursue medical management consult ID service for recommendations for treatment . need for IV Acyclovir seen also by hospice earlier as family requested - Hospice revoked Gama Patel MD Jul 20, 2017 10:01
[2017-07-20 11:01] VITALS: PULSE 74
[2017-07-20] MEDS: ACETAMINOPHEN 325 MG TAB PO PRN (11:24)
[2017-07-20] MEDS: POTASSIUM CHLORIDE INJ 10 MEQ in DEXT 5%-NACL 0.9% 1000 ML INJ 1,000 ML IV SCH ×2 (11:29→22:27)
[2017-07-20 12:05] VITALS: BP 125/77; PULSE 79; RESP 20; TEMP 101.1; O2SAT 94
--- NOTE | 2017-07-20 12:26 | HHI.PR ---
Review/Management Diagnosis 1 . History of Alzheimer's disease 2. Encephalopathy/encephalitis/viral etiology. 3. Pacemaker 4. Hypertension. 5. Coronary artery disease status post coronary artery bypass graft Evaluation and counselling: - I discussed at length with the family members, the current neurologic status of the patient and the plan of starting on aniviral medication after discussion with ID specialist Plan - Neuro checks q. one hourly. - Acyclovir iv - Fall precautions. - ID follow up, recommendations are appreciated - DVT prophylaxis. - TIA prophylaxis. - Continue Aricept and Namenda at current home doses. Diagnosis/Plan: Subjective Subjective Comments No acute events reported No reported fever Started Acyclovir since yesterday and a friend at bed side - LP result / viral studies are pending Active Medications Current Medications Medications (Trade) Dose Ordered Sig/Beth Route Start Time Stop Time Status Last Admin (NS Flush) 2 ml UNSCH PRN IV FLUSH 07/14/17 09:30 (NS Flush) 2 ml BID IV FLUSH 07/14/17 21:00 07/20/17 07:52 (Tylenol) 650 mg Q4H PRN PO 07/14/17 09:30 07/20/17 11:24 (Zofran Inj) 4 mg Q6H PRN IVP 07/14/17 09:30 (Narcan Inj) 0.4 mg UNSCH PRN IV PUSH 07/14/17 09:30 (Sherrell-Colace) 1 tab BID PO 07/14/17 21:00 07/20/17 07:52 (Milk Of Magnesia Liq) 30 ml Q12H PRN PO 07/14/17 09:30 (Senokot) 17.2 mg Q12H PRN PO 07/14/17 09:30 (Dulcolax Supp) 10 mg DAILY PRN RECTAL 07/14/17 09:30 (Lactulose Liq) 30 ml DAILY PRN PO 07/14/17 09:30 (Melatonin) 5 mg HS PRN PO 07/14/17 16:30 07/17/17 22:24 (Aricept) 10 mg HS PO 07/15/17 21:00 07/19/17 20:03 (Synthroid) 50 mcg DAILY@0600 PO 07/15/17 06:00 07/20/17 05:25 (Cozaar) 50 mg DAILY PO 07/15/17 09:00 07/20/17 07:52 Patient Own Medication PT OWN MED: NON-FORMULARY D... DAILY PO 07/15/17 09:00 Future Hold (Cytomel) 25 mcg DAILY PO 07/17/17 09:00 07/20/17 07:52 (Vitamin B12 Inj) 1,000 mcg Q30D IM 07/16/17 15:00 07/16/17 16:17 (SEROquel) 12.5 mg HS PO 07/16/17 21:00 07/19/17 20:03 (Lovenox Inj) 30 mg Q24H SQ 07/16/17 16:00 Future hold 07/16/17 16:17 (Pill Splitter) 1 ea UNSCH PRN OTHER 07/16/17 15:15 (Pepcid) 20 mg DAILY PO 07/17/17 09:00 07/20/17 07:52 (Pravachol) 20 mg DAILY PO 07/17/17 09:00 07/20/17 07:52 (Lopressor) 12.5 mg Q12HR PO 07/16/17 21:00 07/20/17 07:52 (Ferrous Sulfate) 325 mg BID PO 07/16/17 21:00 07/20/17 07:52 (Namenda) 5 mg DAILY PO 07/18/17 09:00 07/20/17 07:52 Acyclovir Sodium 843 mg/Sodium Chloride 150 ml @ 150 mls/hr Q8H IV 07/19/17 20:00 07/20/17 11:36 Potassium Chloride 10 meq/ Dextrose/Sodium Chloride 1,005 ml @ 75 mls/hr [id number] IV 07/20/17 11:00 07/20/17 11:29 Allergies Allergies Coded Allergies No Known Allergies ([id number]/8/16) Review of Systems All other ROS: ROS reviewed as documented in chart Exam I&O / VS Vital Signs Date Time Temp Pulse Resp B/P (MAP) Pulse Ox O2 Delivery O2 Flow Rate FiO2 07/20/17 12:05 101.1 79 20 125/77 (93) 94 07/20/17 11:01 74 07/20/17 08:01 99.6 77 18 133/65 (87) 100 07/19/17 23:54 98.9 91 18 140/77 (98) 96 07/19/17 20:13 98.4 84 16 140/83 (102) 90 07/19/17 15:53 99.4 97 20 115/64 (81) 98 Exam Comments GENERAL: Awake, alert, not in apparent distress, pleasantly demented, sits on a chair with family at bed side. HEENT: Atraumatic, normocephalic. Intact hearing. Intact vision. NECK: Soft, supple. No signs of meningeal irritation. CARDIOVASCULAR: Regular rate and rhythm. RESPIRATORY: Clear to auscultation GASTROINTESTINAL: Soft, nontender MUSCULOSKELETAL: Moves four extremities. No clubbing or cyanosis. NEUROLOGIC: Awake, alert, oriented to person, not to time or place. Speaks with a soft voice. Intact naming, poor comprehension and judgment. Positive Myerson sign. Cranial nerves are grossly intact. Motor system examination unable to accurately assess the muscle strength because of the lack of the cooperation due to the clinical condition. Fidgety movements of the UE. There is rigidity with mild cogwheeling in the bilateral upper and lower extremities with intermittent myoclonus in UE. Reflexes 1+ bilateral symmetrical. Plantars are bilaterally downgoing. Cerebellar functions unable to assess due to the condition of the patient. Objective Radiology Results Last 72 hours Impressions Lumbar Puncture Fluoroscopy 07/18/17 0000 Signed Impressions: Service Date/Time: Tuesday, July 18, 2017 14:27 - CONCLUSION: Uncomplicated fluoroscopically guided lumbar puncture with pressures as above. Bret Pereira Jr., MD Micro and Labs Laboratory Tests Test 07/20/17 07:04 White Blood Count 8.2 Red Blood Count 3.85 Hemoglobin 11.7 Hematocrit 34.3 Mean Corpuscular Volume 89.0 Mean Corpuscular Hemoglobin 30.3 Mean Corpuscular Hemoglobin Concent 34.0 Red Cell Distribution Width 15.4 Platelet Count 196 Mean Platelet Volume 7.7 Neutrophils (%) (Auto) 75.4 Lymphocytes (%) (Auto) 9.3 Monocytes (%) (Auto) 13.6 Eosinophils (%) (Auto) 1.2 Basophils (%) (Auto) 0.5 Neutrophils # (Auto) 6.2 Lymphocytes # (Auto) 0.8 Monocytes # (Auto) 1.1 Eosinophils # (Auto) 0.1 Basophils # (Auto) 0.0 CBC Comment DIFF FINAL Differential Comment Blood Urea Nitrogen 16 Creatinine 1.59 Random Glucose 92 Total Protein 7.0 Albumin 3.9 Calcium Level 9.6 Alkaline Phosphatase 99 Aspartate Amino Transf (AST/SGOT) 25 Alanine Aminotransferase (ALT/SGPT) 28 Total Bilirubin 0.7 Sodium Level 133 Potassium Level 3.6 Chloride Level 99 Carbon Dioxide Level 25.8 Anion Gap 8 Estimat Glomerular Filtration Rate 43 Date/Time Source Procedure Growth Status 07/14/17 07:20 Blood Peripheral Aerobic Blood Culture - Final NO GROWTH IN 5 DAYS Complete 07/14/17 07:20 Blood Peripheral Anaerobic Blood Culture - Final NO GROWTH IN 5 DAYS Complete 07/18/17 14:47 Cerebral Spinal Fluid Lumbar Puncture Gram Stain - Final Resulted 07/18/17 14:47 Cerebral Spinal Fluid Lumbar Puncture CSF Culture - Preliminary NO GROWTH IN 48 HOURS. Resulted Silver Michael MD Jul 20, 2017 12:26
[2017-07-20] MEDS: ENOXAPARIN SODIUM 30 MG/0.3 ML SYRINGE SQ SCH (14:58)
[2017-07-20 15:47] VITALS: BP 109/77; PULSE 84; RESP 20; TEMP 98.4; O2SAT 97
--- NOTE | 2017-07-20 16:33 | HHI.IDPN ---
Subjective Subjective Remarks Mr. Hendricks is a 71-year-old male with past medical history of Alzheimer's dementia who presented to the emergency department of [facility] due to increased confusion and shuffling gait. History obtained from sister and son in the room. The patient was noted on 07/10/2017 to be more confused than his baseline. He had a shuffling gait and headache. He also reportedly took all of his clothes off and urinated on the floor in the bathroom and his bed. He had a temperature of 100.9. Workup was within normal. The patient was found unresponsive. During the encounter, there is no family at the bedside. Infectious disease workup was ordered and BCx negative so far. No other obvious bacterial focal of infection identified so Neurology consulted. Family agreeable to LP and results show elevated WBC with lymphocytic predominance and elevated total protein s.o possible viral meningitis as the process was subacute. Other possibilities of lymyphocytic meningitis are fungal and AFB meningitis although the latter 2 seem less likely. Syphylitic meningitis is another possibility. Overnight events reviewed Temp 101 x 1 only. Low grade fevers. No rash No diarrhea Still confused and not at baseline per family. Antibiotics I attest I reviewed, obtained or updated pts home meds and current meds for name , freq, dose and route of administration. Reported Meds & Active Scripts Active Reported Claritin (Loratadine) 10 Mg Cap 10 Mg PO DAILY Alendronate (Alendronate Sodium) 70 Mg Tab 70 Mg PO Q7D Metoprolol Tartrate 25 Mg Tab 25 Mg PO BID Donepezil 10 Mg Tab 10 Mg PO HS Clopidogrel (Clopidogrel Bisulfate) 75 Mg Tab 75 Mg PO DAILY Losartan (Losartan Potassium) 50 Mg Tab 50 Mg PO DAILY Namenda Xr (Memantine) 28 Mg Caper 28 Mg PO DAILY Fish Oil + D3 (Fish Oil-Cholecalciferol) 1,200-1,000 Mg-Unit Cap 1 Cap PO DAILY Famotidine 20 Mg Tab 20 Mg PO DAILY Alprazolam 0.25 Mg Tab 0.25 Mg PO Q6H PRN Sertraline (Sertraline HCl) 50 Mg Tab 50 Mg PO DAILY Levothyroxine (Levothyroxine Sodium) 50 Mcg Tab 50 Mcg PO DAILY Allopurinol 300 Mg Tab 300 Mg PO DAILY Simvastatin 20 Mg Tab 10 Mg PO DAILY Current Medications Medications (Trade) Dose Ordered Sig/Beth Route Start Time Stop Time Status Last Admin (NS Flush) 2 ml UNSCH PRN IV FLUSH 07/14/17 09:30 (NS Flush) 2 ml BID IV FLUSH 07/14/17 21:00 07/20/17 07:52 (Tylenol) 650 mg Q4H PRN PO 07/14/17 09:30 07/20/17 11:24 (Zofran Inj) 4 mg Q6H PRN IVP 07/14/17 09:30 (Narcan Inj) 0.4 mg UNSCH PRN IV PUSH 07/14/17 09:30 (Sherrell-Colace) 1 tab BID PO 07/14/17 21:00 07/20/17 07:52 (Milk Of Magnesia Liq) 30 ml Q12H PRN PO 07/14/17 09:30 (Senokot) 17.2 mg Q12H PRN PO 07/14/17 09:30 (Dulcolax Supp) 10 mg DAILY PRN RECTAL 07/14/17 09:30 (Lactulose Liq) 30 ml DAILY PRN PO 07/14/17 09:30 (Melatonin) 5 mg HS PRN PO 07/14/17 16:30 07/17/17 22:24 (Aricept) 10 mg HS PO 07/15/17 21:00 07/19/17 20:03 (Synthroid) 50 mcg DAILY@0600 PO 07/15/17 06:00 07/20/17 05:25 (Cozaar) 50 mg DAILY PO 07/15/17 09:00 07/20/17 07:52 Patient Own Medication PT OWN MED: NON-FORMULARY D... DAILY PO 07/15/17 09:00 Future Hold (Cytomel) 25 mcg DAILY PO 07/17/17 09:00 07/20/17 07:52 (Vitamin B12 Inj) 1,000 mcg Q30D IM 07/16/17 15:00 07/16/17 16:17 (SEROquel) 12.5 mg HS PO 07/16/17 21:00 07/19/17 20:03 (Lovenox Inj) 30 mg Q24H SQ 07/16/17 16:00 Future hold 07/20/17 14:58 (Pill Splitter) 1 ea UNSCH PRN OTHER 07/16/17 15:15 (Pepcid) 20 mg DAILY PO 07/17/17 09:00 07/20/17 07:52 (Pravachol) 20 mg DAILY PO 07/17/17 09:00 07/20/17 07:52 (Lopressor) 12.5 mg Q12HR PO 07/16/17 21:00 07/20/17 07:52 (Ferrous Sulfate) 325 mg BID PO 07/16/17 21:00 07/20/17 07:52 (Namenda) 5 mg DAILY PO 07/18/17 09:00 07/20/17 07:52 Acyclovir Sodium 843 mg/Sodium Chloride 150 ml @ 150 mls/hr Q8H IV 07/19/17 20:00 07/20/17 11:36 Potassium Chloride 10 meq/ Dextrose/Sodium Chloride 1,005 ml @ 75 mls/hr [id number] IV 07/20/17 11:00 07/20/17 11:29 Acyclovir IV Lines Line sites with no e.o infection Past Medical History 1. Coronary artery disease status post coronary artery bypass graft. 2. Pacemaker placement 2015. 3. Prostate cancer status post radiation 4. Dementia, 5. Hypertension. Coronary artery bypass graft times four. Allergies: Coded Allergies: No Known Allergies (Verified , 07/02/16) Objective . Vital Signs Date Time Temp Pulse Resp B/P (MAP) Pulse Ox O2 Delivery O2 Flow Rate FiO2 07/20/17 15:47 98.4 84 20 109/77 (88) 97 07/20/17 12:05 101.1 79 20 125/77 (93) 94 07/20/17 11:01 74 07/20/17 08:01 99.6 77 18 133/65 (87) 100 07/19/17 23:54 98.9 91 18 140/77 (98) 96 07/19/17 20:13 98.4 84 16 140/83 (102) 90 07/20/17 07/20/17 07/21/17 15:00 23:00 07:00 Intake Total 480 ml Balance 480 ml Intake Oral 480 ml # Voids 3 # Bowel Movements 0 . Laboratory Tests Test 07/20/17 07:04 White Blood Count 8.2 TH/MM3 Red Blood Count 3.85 MIL/MM3 Hemoglobin 11.7 GM/DL Hematocrit 34.3 % Mean Corpuscular Volume 89.0 FL Mean Corpuscular Hemoglobin 30.3 PG Mean Corpuscular Hemoglobin Concent 34.0 % Red Cell Distribution Width 15.4 % Platelet Count 196 TH/MM3 Mean Platelet Volume 7.7 FL Neutrophils (%) (Auto) 75.4 % Lymphocytes (%) (Auto) 9.3 % Monocytes (%) (Auto) 13.6 % Eosinophils (%) (Auto) 1.2 % Basophils (%) (Auto) 0.5 % Neutrophils # (Auto) 6.2 TH/MM3 Lymphocytes # (Auto) 0.8 TH/MM3 Monocytes # (Auto) 1.1 TH/MM3 Eosinophils # (Auto) 0.1 TH/MM3 Basophils # (Auto) 0.0 TH/MM3 CBC Comment DIFF FINAL Differential Comment Laboratory Tests Test 07/20/17 07:04 Blood Urea Nitrogen 16 MG/DL Creatinine 1.59 MG/DL Random Glucose 92 MG/DL Total Protein 7.0 GM/DL Albumin 3.9 GM/DL Calcium Level 9.6 MG/DL Alkaline Phosphatase 99 U/L Aspartate Amino Transf (AST/SGOT) 25 U/L Alanine Aminotransferase (ALT/SGPT) 28 U/L Total Bilirubin 0.7 MG/DL Sodium Level 133 MEQ/L Potassium Level 3.6 MEQ/L Chloride Level 99 MEQ/L Carbon Dioxide Level 25.8 MEQ/L Anion Gap 8 MEQ/L Estimat Glomerular Filtration Rate 43 ML/MIN Microbiology Date/Time Source Procedure Growth Status 07/18/17 14:47 Cerebral Spinal Fluid Lumbar Puncture Gram Stain - Final Resulted 07/18/17 14:47 Cerebral Spinal Fluid Lumbar Puncture CSF Culture - Preliminary NO GROWTH IN 48 HOURS. Resulted Imaging Last Impressions Lumbar Puncture Fluoroscopy 07/18/17 0000 Signed Impressions: Service Date/Time: Tuesday, July 18, 2017 14:27 - CONCLUSION: Uncomplicated fluoroscopically guided lumbar puncture with pressures as above. Bret Pereira Jr., MD Neck Magnetic Resonance Angiography 07/14/17 0843 Signed Impressions: Service Date/Time: Friday, July 14, 2017 17:10 - CONCLUSION: Normal examination. Ant Campbell MD Head Magnetic Resonance Angiography 07/14/17 0843 Signed Impressions: Service Date/Time: Friday, July 14, 2017 17:10 - CONCLUSION: No acute disease. Bret Pereira Jr., MD Brain MRI 07/14/17 0843 Signed Impressions: Service Date/Time: Friday, July 14, 2017 17:10 - CONCLUSION: Normal examination for a patient of this age. Ant Campbell MD Chest X-Ray 07/14/17 0706 Signed Impressions: Service Date/Time: Friday, July 14, 2017 07:30 - CONCLUSION: Underinflated examination with atelectasis at the lung bases. Otherwise, no acute finding is identified. Santy Hernadez MD Physical Exam GENERAL: This is a well-nourished, well-developed patient, in no apparent distress. SKIN: No rashes, ecchymoses or lesions. Cool and dry. HEAD: Atraumatic. Normocephalic. No temporal or scalp tenderness. EYES: Pupils equal round and reactive. Extraocular motions intact. No scleral icterus. No injection or drainage. ENT: Nose without bleeding, purulent drainage or septal hematoma. Throat without erythema, tonsillar hypertrophy or exudate. Uvula midline. Airway patent. NECK: Trachea midline. CARDIOVASCULAR: Regular rate and rhythm without murmurs, gallops, or rubs. RESPIRATORY: Clear to auscultation. Breath sounds equal bilaterally. No wheezes , rales, or rhonchi. GASTROINTESTINAL: Abdomen soft, non-tender, nondistended. MUSCULOSKELETAL: Extremities without clubbing, cyanosis, or edema. No joint tenderness, effusion, or edema noted. No calf tenderness. Negative Homans sign bilaterally. NEUROLOGICAL: Awake and alert. Speech soft spoken. Some abnormal movts noted. Tone slightly increased. Plantars downgoing. ? neck pain on flexion. Psych cooperative IV line sites with no e.o infection. Assessment & Plan Remarks Meningoencephalitis: lymphocytic predominant likely viral. For completion of workup added Fungal and AFB cultures plus VZV PCR. acute encephalopathy; change from baseline Baseline Dementia Urinary incontinence likely related to acute process. Recs Continue IV Acyclovir for viral meningitis Follow HSV PCR Follow VZV PCR. Follow cultures. Follow encephalitis panel Follow CSF VDRL. Follow clinically. If viral due to HSV or VZV will start seeing response in 48 - 72 hrs. If other viral etiologies may not see the neuro improvement. Asya family about this fact. Also explained lymphocytic predominance can be from other etiologies as well. PICC line placement will be a challenge but will assess on follow up. No PICC till cleared by ID. asya pt daughter Naa and sister in room d.w to adequately hydrate pt as pt on acyclovir. Pt does not have much oral intake at this point. Family asked to encourage oral fluid intake. Time spent in excess of 40 mins. Critical thinking. Majo Mcclain MD Jul 20, 2017 16:33
--- NOTE | 2017-07-20 17:00 | RADRPT ---
EXAM DATE/TIME: 07/20/2017 17:26 [facility] COMPARISON: CHEST SINGLE AP, July 14, 2017, 7:30. INDICATIONS : Fever MEDICAL HISTORY : Gastroesophageal reflux disease. Hypertension SURGICAL HISTORY : Pacemaker. CABG. ENCOUNTER: Subsequent ACUITY: 4 - 6 days PAIN SCORE: 0/10 LOCATION: chest FINDINGS: There is a transvenous pacer in place. The lungs are clear. The heart is mildly enlarged. The patient is post median sternotomy. Mediastinal contours are within normal limits. The visualized bony structures are intact. CONCLUSION: 1. Post surgical changes. 2. No acute abnormality. Stable compared to prior dated 07/14/17. Juwan Luis MD on July 20, 2017 at 16:58 Board Certified Radiologist. This report was verified electronically.
[2017-07-20 19:31] LABS: AMORPHOUS SEDIMENT, URINE RARE; BILIRUBIN, URINE NEG (NEG); BLOOD, URINE NEG (NEG); GLUCOSE,URINE NEG (NEG); KETONE, URINE NEG (NEG); MUCUS URINE FEW /lpf (OCC); NITRITE,URINE NEG (NEG); URINE COLOR YELLOW (YELLW/STRAW); URINE LEUKOCYTE ESTERASE NEG (NEG)
[2017-07-20 20:12] VITALS: BP 135/93; PULSE 88; RESP 18; TEMP 98.8; O2SAT 97
[2017-07-20] MEDS: QUEtiapine FUMARATE 25 MG TAB PO SCH (20:13)
[2017-07-20] MEDS: DONEPEZIL HCL 5 MG TAB PO SCH (20:13)
[2017-07-21] VITALS (7 sets, daily range): BP systolic 129–176; BP diastolic 63–78; PULSE 76–101; RESP 18–20; TEMP 97.8–101.2; O2SAT 95–98
[2017-07-21] MEDS: SODIUM CHLORIDE 0.9% IV SCH ×2 (04:00→11:02)
[2017-07-21] MEDS: ACYCLOVIR IV SCH ×2 (04:00→11:02)
[2017-07-21] MEDS: LEVOTHYROXINE SODIUM 50 MCG TAB PO SCH (04:39)
[2017-07-21] MEDS: SODIUM CHLORIDE 0.9% FLUSH 10 ML FLUSH IV FLUSH SCH ×2 (05:55→20:48)
[2017-07-21] MEDS: FERROUS SULFATE 325 MG (65 MG ELEMENTAL IRON) TAB PO SCH ×2 (07:14→20:48)
[2017-07-21] MEDS: LOSARTAN 50 MG TAB PO SCH (07:14)
[2017-07-21] MEDS: LIOTHYRONINE SODIUM 25 MCG TAB PO SCH (07:14)
[2017-07-21] MEDS: DOCUSATE SODIUM 50 MG/SENNA 8.6 MG TAB PO SCH ×2 (07:14→14:27)
[2017-07-21] MEDS: FAMOTIDINE 20 MG TAB PO SCH (07:14)
[2017-07-21] MEDS: PRAVASTATIN SOD 20 MG TAB PO SCH (07:14)
[2017-07-21] MEDS: MEMANTINE HCL 5 MG TAB PO SCH (07:14)
[2017-07-21] MEDS: POTASSIUM CHLORIDE INJ 10 MEQ in DEXT 5%-NACL 0.9% 1000 ML INJ 1,000 ML IV SCH ×3 (07:14→18:44)
[2017-07-21] MEDS: METOPROLOL TARTRATE 25 MG TAB PO SCH ×2 (07:15→20:49)
[2017-07-21 10:08] LABS: BICARBONATE 21.4 MEQ/L (21.0-32.0); CALCIUM 9.3 MG/DL (8.5-10.1); CREATININE 4.31 MG/DL (0.60-1.30)
--- NOTE | 2017-07-21 11:17 | HHI.PR ---
Subjective Remarks neuro- unchange- childlike, puckering lips, moves all extremities spontaneously no meaningful interaction but maintains eye contact and playful and he did speak in full sentences today speaks but in childlike manner "spann", whispering voice patient not keeping condom T down Objective Vitals Vital Signs Date Time Temp Pulse Resp B/P (MAP) Pulse Ox O2 Delivery O2 Flow Rate FiO2 07/21/17 08:35 91 07/21/17 07:41 97.8 173/ 07/21/17 04:00 98.1 76 18 137/63 (87) 95 07/20/17 20:12 98.8 88 18 135/93 (107) 97 07/20/17 15:47 98.4 84 20 109/77 (88) 97 07/20/17 12:05 101.1 79 20 125/77 (93) 94 I/O 07/20/17 07/20/17 07/20/17 07/21/17 07/21/17 07/21/17 07:00 15:00 23:00 07:00 15:00 23:00 Intake Total 150 ml 630 ml 445 ml Balance 150 ml 630 ml 445 ml Intake Oral 480 ml IV Total 150 ml 150 ml 445 ml # Voids 2 3 # Bowel Movements 0 0 Result Diagram: 07/20/17 0704 07/21/17 0920 Imaging Last Impressions Chest X-Ray 07/20/17 0000 Signed Impressions: Service Date/Time: June 17:26 - CONCLUSION: 1. Post surgical changes. 2. No acute abnormality. Stable compared to prior dated 07/14/17. Juwan Luis MD Lumbar Puncture Fluoroscopy 07/18/17 0000 Signed Impressions: Service Date/Time: Tuesday, July 18, 2017 14:27 - CONCLUSION: Uncomplicated fluoroscopically guided lumbar puncture with pressures as above. Bret Pereira Jr., MD Neck Magnetic Resonance Angiography 07/14/17 0843 Signed Impressions: Service Date/Time: Friday, July 14, 2017 17:10 - CONCLUSION: Normal examination. Ant Campbell MD Head Magnetic Resonance Angiography 07/14/1743 Signed Impressions: Service Date/Time: Friday, July 14, 2017 17:10 - CONCLUSION: No acute disease. Bret Pereira Jr., MD Brain MRI 07/14/1743 Signed Impressions: Service Date/Time: Friday, July 14, 2017 17:10 - CONCLUSION: Normal examination for a patient of this age. Ant Campbell MD Objective Remarks puckering lips, playful anicteric pupils equal no nuchal rigidity no rales or wheezes regular rhythm abdomen soft, no guarding extremities no edema moves all extremities spontaneously Procedures 07/18- LP A/P Assessment and Plan Mr. Hendricks is a 71 year old male with a history of dementia who presented to the ED after he was found unresponsive by his . Day prior to this admission , she brought him to the ED due to 5-6 day duration of increased confusion, shuffling gait. Acute encephalopathy-- Viral encephalitis Advance dementia S/P LP-- CSF will leukocytosis, high protein . c and s pending,- additional studies pending. EEG unremarkable - Although he has dementia, apparently his degree of confusion is much more profound -per daughter- decline in MS and functioning - continue on Namenda and Aricept -speech therapy ff- for cognitive evaluation - on mechanical soft diet - d/w with PT- will need skilled - Neurology ff.- - appreciate ID recommendation- on IV Acyclovir New Fever spike 07/20- now T down UA, CXR negative continue to monitor -Acute kidney injury- ATN continue IVF- increae to 150 cc/hr get US kidney/bladder r/o obstruction Nephrology consult d/w Pharmacy- hold for now and adjust Acyclovir dose. - jsut started yesterday place [facility] for accurate I and O will hold cozaar (although patient has been on this even as OP) Hyponatremia- stable NA improved to 133. ff BMP -History of hypothyroidsim on synthroid 50 mcg po daily low T3 - started cytomel 25 mcg po daily - Alzheimer's dementia - recent decompensation - Will continue home medications. -appreciate Dr. Navarro's recommendation Namenda + Aricept. On Seroquel - History of PM Hypertension Cardiology ff Patient has a [employer] pacemaker. continue on Cozaar Lopressor at 12.5 mg po bid. Plavix Iron deficiency Ferrous sulfate 325 mg po bid on H2 davy Low B12- given B12 IM x 1 then q 30 days Deconditioning- PT daily- need SNF Lovenox for DVT prophylaxis restart 12 noon d/w with -regarding worsening renal functions nephrology consulted- she agrees to hemodialysis if needed and may be tube feedings too but in the event of respiratory distress or cardiac arrest -no resuscitation no code 1:45 pm- morales placed with no difficulty- about 100 cc clear urine obtained Gama Patel MD Jul 21, 2017 11:17
--- NOTE | 2017-07-21 13:46 | PD.CONS ---
HPI Service Nephrology Consult Requested By Dr. Patel Reason for Consult PHIL Primary Care Physician Mireille Zepeda MD History of Present Illness The patient is a 71 yo [place] male who was brought in via EMS on 07/14 for AMS. He does have baseline dementia, but says he was worse. On 07/18 he underwent LP for further evaluation as MRI scans, BCx, and work up to that point was negative. Results suggestive of viral encephalitis and was subsequently started on IV Acyclovir. We have been consulted for evaluation of acute renal decline. Admitting SCr was 1.33 and [place] to 1.59 on 07/20 and subsequently to 4.31 on date on consult. Family is unaware of underlying CKD, but review of records suggests that baseline SCr since (Naty Knutson) Review of Systems ROS Limitations: Altered Mental Status (Naty Knutson) Past Family Social History Allergies: Coded Allergies: No Known Allergies (Verified , 07/02/16) Past Medical History Dementia CAD s/p 4 vessel CABG in 2014 Bradycardia s/p pacer placement 2016 Prostate CA treated via radiation 2015 (Dr. Ramirez) HTN Gout Hypothyroidism Past Surgical History Pacer CABG Reported Medications Reported Meds & Active Scripts Active Reported Claritin (Loratadine) 10 Mg Cap 10 Mg PO DAILY Alendronate (Alendronate Sodium) 70 Mg Tab 70 Mg PO Q7D Metoprolol Tartrate 25 Mg Tab 25 Mg PO BID Donepezil 10 Mg Tab 10 Mg PO HS Clopidogrel (Clopidogrel Bisulfate) 75 Mg Tab 75 Mg PO DAILY Losartan (Losartan Potassium) 50 Mg Tab 50 Mg PO DAILY Namenda Xr (Memantine) 28 Mg Caper 28 Mg PO DAILY Fish Oil + D3 (Fish Oil-Cholecalciferol) 1,200-1,000 Mg-Unit Cap 1 Cap PO DAILY Famotidine 20 Mg Tab 20 Mg PO DAILY Alprazolam 0.25 Mg Tab 0.25 Mg PO Q6H PRN Sertraline (Sertraline HCl) 50 Mg Tab 50 Mg PO DAILY Levothyroxine (Levothyroxine Sodium) 50 Mcg Tab 50 Mcg PO DAILY Allopurinol 300 Mg Tab 300 Mg PO DAILY Simvastatin 20 Mg Tab 10 Mg PO DAILY Active Ordered Medications Current Medications Medications (Trade) Dose Ordered Sig/Beth Route Start Time Stop Time Status Last Admin (NS Flush) 2 ml UNSCH PRN IV FLUSH 07/14/17 09:30 (NS Flush) 2 ml BID IV FLUSH 07/14/17 21:00 07/20/17 20:12 (Tylenol) 650 mg Q4H PRN PO 07/14/17 09:30 07/20/17 11:24 (Zofran Inj) 4 mg Q6H PRN IVP 07/14/17 09:30 (Narcan Inj) 0.4 mg UNSCH PRN IV PUSH 07/14/17 09:30 (Sherrell-Colace) 1 tab BID PO 07/14/17 21:00 07/21/17 07:14 (Milk Of Magnesia Liq) 30 ml Q12H PRN PO 07/14/17 09:30 (Senokot) 17.2 mg Q12H PRN PO 07/14/17 09:30 (Dulcolax Supp) 10 mg DAILY PRN RECTAL 07/14/17 09:30 (Lactulose Liq) 30 ml DAILY PRN PO 07/14/17 09:30 (Melatonin) 5 mg HS PRN PO 07/14/17 16:30 07/17/17 22:24 (Aricept) 10 mg HS PO 07/15/17 21:00 07/20/17 20:13 (Synthroid) 50 mcg DAILY@0600 PO 07/15/17 06:00 07/21/17 04:39 Patient Own Medication PT OWN MED: NON-FORMULARY D... DAILY PO 07/15/17 09:00 Future Hold (Cytomel) 25 mcg DAILY PO 07/17/17 09:00 07/21/17 07:14 (Vitamin B12 Inj) 1,000 mcg Q30D IM 07/16/17 15:00 07/16/17 16:17 (SEROquel) 12.5 mg HS PO 07/16/17 21:00 07/20/17 20:13 (Lovenox Inj) 30 mg Q24H SQ 07/16/17 16:00 Future hold 07/20/17 14:58 (Pill Splitter) 1 ea UNSCH PRN OTHER 07/16/17 15:15 (Pepcid) 20 mg DAILY PO 07/17/17 09:00 07/21/17 07:14 (Pravachol) 20 mg DAILY PO 07/17/17 09:00 07/21/17 07:14 (Lopressor) 12.5 mg Q12HR PO 07/16/17 21:00 07/21/17 07:15 (Ferrous Sulfate) 325 mg BID PO 07/16/17 21:00 07/21/17 07:14 (Namenda) 5 mg DAILY PO 07/18/17 09:00 07/21/17 07:14 Acyclovir Sodium 843 mg/Sodium Chloride 150 ml @ 150 mls/hr Q8H IV 07/19/17 20:00 Future Hold 07/21/17 11:02 Potassium Chloride 10 meq/ Dextrose/Sodium Chloride 1,005 ml @ 150 mls/hr Q6H42M IV 07/20/17 11:00 07/21/17 11:29 Family History Dementia Social History lives locally with No EtOH, no tobacco, no illicts (Naty Knutson) Physical Exam Vital Signs Vital Signs Date Time Temp Pulse Resp B/P (MAP) Pulse Ox O2 Delivery O2 Flow Rate FiO2 07/21/17 11:46 98.0 79 20 139/70 (93) 98 07/21/17 08:35 91 07/21/17 07:41 97.8 173/ 07/21/17 04:00 98.1 76 18 137/63 (87) 95 07/20/17 20:12 98.8 88 18 135/93 (107) 97 07/20/17 15:47 98.4 84 20 109/77 (88) 97 Physical Exam GENERAL: Pt sitting up in chair. Pleasant, but obviously altered. SKIN: Warm and dry. HEAD: Atraumatic. Normocephalic. EYES: Pupils equal and round. No scleral icterus. No injection or drainage. ENT: No nasal bleeding or discharge. Mucous membranes dry NECK: Trachea midline. No JVD. CARDIOVASCULAR: Regular rate and rhythm. RESPIRATORY: No accessory muscle use. Clear to auscultation. Breath sounds equal bilaterally. GASTROINTESTINAL: Abdomen soft, non-tender, nondistended. Hepatic and splenic margins not palpable. MUSCULOSKELETAL: Extremities without clubbing, cyanosis, or edema. No obvious deformities. NEUROLOGICAL: Awake and alert. PSYCHIATRIC: Mood and affect child-like Laboratory Laboratory Tests Test 07/20/17 16:50 07/21/17 09:20 Urine Color YELLOW Urine Turbidity HAZY Urine pH 6.0 Urine Specific [place] 1.012 Urine Protein 30 Urine Glucose (UA) NEG Urine Ketones NEG Urine Occult Blood NEG Urine Nitrite NEG Urine Bilirubin NEG Urine Urobilinogen LESS THAN 2.0 Urine Leukocyte Esterase NEG Urine RBC 1 Urine WBC 1 Urine Amorphous Sediment RARE Urine Mucus FEW Microscopic Urinalysis Comment CULT NOT INDICATED Blood Urea Nitrogen 25 Creatinine 4.31 Random Glucose 128 Calcium Level 9.3 Sodium Level 136 Potassium Level 4.3 Chloride Level 105 Carbon Dioxide Level 21.4 Anion Gap 10 Estimat Glomerular Filtration Rate 14 Date/Time Source Procedure Growth Status 07/14/17 07:20 Blood Peripheral Aerobic Blood Culture - Final NO GROWTH IN 5 DAYS Complete 07/14/17 07:20 Blood Peripheral Anaerobic Blood Culture - Final NO GROWTH IN 5 DAYS Complete 07/18/17 14:47 Cerebral Spinal Fluid Lumbar Puncture Gram Stain - Final Complete 07/18/17 14:47 Cerebral Spinal Fluid Lumbar Puncture CSF Culture - Final NO GROWTH IN 72 HOURS Complete (Naty Knutson) Result Diagram: 07/20/17 0704 07/21/17 0920 Imaging Last Impressions Chest X-Ray 07/20/17 0000 Signed Impressions: Service Date/Time: June 17:26 - CONCLUSION: 1. Post surgical changes. 2. No acute abnormality. Stable compared to prior dated 07/14/17. Juwan Luis MD Lumbar Puncture Fluoroscopy 07/18/17 0000 Signed Impressions: Service Date/Time: Tuesday, July 18, 2017 14:27 - CONCLUSION: Uncomplicated fluoroscopically guided lumbar puncture with pressures as above. Bret Pereira Jr., MD Neck Magnetic Resonance Angiography 07/14/17 0843 Signed Impressions: Service Date/Time: Friday, July 14, 2017 17:10 - CONCLUSION: Normal examination. Ant Campbell MD Head Magnetic Resonance Angiography 07/14/17 0843 Signed Impressions: Service Date/Time: Friday, July 14, 2017 17:10 - CONCLUSION: No acute disease. Bret Pereira Jr., MD Brain MRI 07/14/1743 Signed Impressions: Service Date/Time: Friday, July 14, 2017 17:10 - CONCLUSION: Normal examination for a patient of this age. Ant Campbell MD (Naty Knutson) Assessment and Plan Problem List: (1) Acute renal failure (ARF) ICD Codes: N17.9 - Acute kidney failure, unspecified Plan: At baseline, the patient appears to have underlying CKD with baseline SCr of 1.3 since 2016. Acute decline not entirely clear, but potentially related to introduction of Acyclovir. He appears to be volume depleted on exam and the introduction of acyclovir in a patient who is dehydrated can illicit deposition of acyclovir crystals in the tubules resulting in intratubular obstruction and inflammation. This has been held and IV fluids have been increased. Typically, if this is the case, resolution of acute renal decline occurs within 4 to 9 days after med discontinued. We will screen for additional pathology, however. [place] to check accurate I&Os Check renal US to r/u obstruction Will hold ARB for the present in setting of acute renal injury. Medications should be adjusted for the patient's renal decline. Avoid nephrotoxic agents such as iodinated contrast and NSAIDs. Avoid gadolinium. (2) Viral encephalitis ICD Codes: A86 - Unspecified viral encephalitis Plan: Acyclovir has been held. Appreciate ID input (3) Altered mental status ICD Codes: R41.82 - Altered mental status, unspecified Status: Acute (4) Coronary artery disease ICD Codes: I25.10 - Coronary artery disease Status: Acute (5) Hypertension ICD Codes: I10 - Hypertension Status: Acute Plan: As above, hold Losartan Will adjust meds further if needed. (Naty Knutson) Assessment and Plan The exam, history, and the medical decision-making described in the above note were completed with the assistance of the PA-C. I reviewed and agree with the findings presented. I attest that I had a [id number] encounter with the patient on the same day, and personally performed and documented my assessment and findings in the medical record. I discussed with the patient's family patient's current renal status and possibility that we may have to consider dialytic support if his azotemia continues to worsen. If dialysis is initiated it may likely only be required temporarily although renal recovery cannot be completely guaranteed as discussed with them. (William Stafford MD) Problem Qualifiers (1) Altered mental status: Qualified Codes: R41.0 - Disorientation, unspecified Naty Knutson Jul 21, 2017 13:46 William Stafford MD Jul 21, 2017 14:20
[2017-07-21] MEDS ORDERED: ZIPRASIDONE MESYLATE 20 MG VIAL IM PRN (14:00)
[2017-07-21] MEDS: ENOXAPARIN SODIUM 30 MG/0.3 ML SYRINGE SQ SCH (14:20)
[2017-07-21 14:22] LABS: CF EBV DNA PCR RESULT Negative (Negative); CF EBV SPEC SOURCE CSF; LYME IGG IMMUNOBLOT CSF None Detected bands (None Detected); LYME IGM IMMUNOBLOT CSF None Detected bands (None Detected)
--- NOTE | 2017-07-21 14:52 | HHI.IDPN ---
Subjective Subjective Remarks Mr. Hendricks is a 71-year-old male with past medical history of Alzheimer's dementia who presented to the emergency department of [facility] due to increased confusion and shuffling gait. History obtained from sister and son in the room. The patient was noted on 07/10/2017 to be more confused than his baseline. He had a shuffling gait and headache. He also reportedly took all of his clothes off and urinated on the floor in the bathroom and his bed. He had a temperature of 100.9. Workup was within normal. The patient was found unresponsive. During the encounter, there is no family at the bedside. Infectious disease workup was ordered and BCx negative so far. No other obvious bacterial focal of infection identified so Neurology consulted. Family agreeable to LP and results show elevated WBC with lymphocytic predominance and elevated total protein s.o possible viral meningitis as the process was subacute. Other possibilities of lymyphocytic meningitis are fungal and AFB meningitis although the latter 2 seem less likely. Syphylitic meningitis is another possibility. Overnight events reviewed Temp 101 F No rash No diarrhea Still confused and not at baseline per family but they report slight improvement. Antibiotics I attest I reviewed, obtained or updated pts home meds and current meds for name , freq, dose and route of administration. Reported Meds & Active Scripts Active Reported Claritin (Loratadine) 10 Mg Cap 10 Mg PO DAILY Alendronate (Alendronate Sodium) 70 Mg Tab 70 Mg PO Q7D Metoprolol Tartrate 25 Mg Tab 25 Mg PO BID Donepezil 10 Mg Tab 10 Mg PO HS Clopidogrel (Clopidogrel Bisulfate) 75 Mg Tab 75 Mg PO DAILY Losartan (Losartan Potassium) 50 Mg Tab 50 Mg PO DAILY Namenda Xr (Memantine) 28 Mg Caper 28 Mg PO DAILY Fish Oil + D3 (Fish Oil-Cholecalciferol) 1,200-1,000 Mg-Unit Cap 1 Cap PO DAILY Famotidine 20 Mg Tab 20 Mg PO DAILY Alprazolam 0.25 Mg Tab 0.25 Mg PO Q6H PRN Sertraline (Sertraline HCl) 50 Mg Tab 50 Mg PO DAILY Levothyroxine (Levothyroxine Sodium) 50 Mcg Tab 50 Mcg PO DAILY Allopurinol 300 Mg Tab 300 Mg PO DAILY Simvastatin 20 Mg Tab 10 Mg PO DAILY Current Medications Medications (Trade) Dose Ordered Sig/Beth Route Start Time Stop Time Status Last Admin (NS Flush) 2 ml UNSCH PRN IV FLUSH 07/14/17 09:30 (NS Flush) 2 ml BID IV FLUSH 07/14/17 21:00 07/20/17 07:52 (Tylenol) 650 mg Q4H PRN PO 07/14/17 09:30 07/20/17 11:24 (Zofran Inj) 4 mg Q6H PRN IVP 07/14/17 09:30 (Narcan Inj) 0.4 mg UNSCH PRN IV PUSH 07/14/17 09:30 (Sherrell-Colace) 1 tab BID PO 07/14/17 21:00 07/20/17 07:52 (Milk Of Magnesia Liq) 30 ml Q12H PRN PO 07/14/17 09:30 (Senokot) 17.2 mg Q12H PRN PO 07/14/17 09:30 (Dulcolax Supp) 10 mg DAILY PRN RECTAL 07/14/17 09:30 (Lactulose Liq) 30 ml DAILY PRN PO 07/14/17 09:30 (Melatonin) 5 mg HS PRN PO 07/14/17 16:30 07/17/17 22:24 (Aricept) 10 mg HS PO 07/15/17 21:00 07/19/17 20:03 (Synthroid) 50 mcg DAILY@0600 PO 07/15/17 06:00 07/20/17 05:25 (Cozaar) 50 mg DAILY PO 07/15/17 09:00 07/20/17 07:52 Patient Own Medication PT OWN MED: NON-FORMULARY D... DAILY PO 07/15/17 09:00 Future Hold (Cytomel) 25 mcg DAILY PO 07/17/17 09:00 07/20/17 07:52 (Vitamin B12 Inj) 1,000 mcg Q30D IM 07/16/17 15:00 07/16/17 16:17 (SEROquel) 12.5 mg HS PO 07/16/17 21:00 07/19/17 20:03 (Lovenox Inj) 30 mg Q24H SQ 07/16/17 16:00 Future hold 07/20/17 14:58 (Pill Splitter) 1 ea UNSCH PRN OTHER 07/16/17 15:15 (Pepcid) 20 mg DAILY PO 07/17/17 09:00 07/20/17 07:52 (Pravachol) 20 mg DAILY PO 07/17/17 09:00 07/20/17 07:52 (Lopressor) 12.5 mg Q12HR PO 07/16/17 21:00 07/20/17 07:52 (Ferrous Sulfate) 325 mg BID PO 07/16/17 21:00 07/20/17 07:52 (Namenda) 5 mg DAILY PO 07/18/17 09:00 07/20/17 07:52 Acyclovir Sodium 843 mg/Sodium Chloride 150 ml @ 150 mls/hr Q8H IV 07/19/17 20:00 07/20/17 11:36 Potassium Chloride 10 meq/ Dextrose/Sodium Chloride 1,005 ml @ 75 mls/hr [id number] IV 07/20/17 11:00 07/20/17 11:29 Acyclovir IV Lines Line sites with no e.o infection Past Medical History 1. Coronary artery disease status post coronary artery bypass graft. 2. Pacemaker placement 2015. 3. Prostate cancer status post radiation 4. Dementia, 5. Hypertension. Coronary artery bypass graft times four. Allergies: Coded Allergies: No Known Allergies (Verified , 07/02/16) Objective . Vital Signs Date Time Temp Pulse Resp B/P (MAP) Pulse Ox O2 Delivery O2 Flow Rate FiO2 07/21/17 11:46 98.0 79 20 139/70 (93) 98 07/21/17 08:35 91 07/21/17 07:41 97.8 173/ 07/21/17 04:00 98.1 76 18 137/63 (87) 95 07/20/17 20:12 98.8 88 18 135/93 (107) 97 07/20/17 15:47 98.4 84 20 109/77 (88) 97 07/21/17 07/21/17 07/22/17 15:00 23:00 07:00 Intake Total 150 ml Balance 150 ml IV Total 150 ml . Laboratory Tests Test 07/20/17 07:04 White Blood Count 8.2 TH/MM3 Red Blood Count 3.85 MIL/MM3 Hemoglobin 11.7 GM/DL Hematocrit 34.3 % Mean Corpuscular Volume 89.0 FL Mean Corpuscular Hemoglobin 30.3 PG Mean Corpuscular Hemoglobin Concent 34.0 % Red Cell Distribution Width 15.4 % Platelet Count 196 TH/MM3 Mean Platelet Volume 7.7 FL Neutrophils (%) (Auto) 75.4 % Lymphocytes (%) (Auto) 9.3 % Monocytes (%) (Auto) 13.6 % Eosinophils (%) (Auto) 1.2 % Basophils (%) (Auto) 0.5 % Neutrophils # (Auto) 6.2 TH/MM3 Lymphocytes # (Auto) 0.8 TH/MM3 Monocytes # (Auto) 1.1 TH/MM3 Eosinophils # (Auto) 0.1 TH/MM3 Basophils # (Auto) 0.0 TH/MM3 CBC Comment DIFF FINAL Differential Comment Laboratory Tests Test 07/20/17 07:04 07/21/17 09:20 Blood Urea Nitrogen 16 MG/DL 25 MG/DL Creatinine 1.59 MG/DL 4.31 MG/DL Random Glucose 92 MG/DL 128 MG/DL Total Protein 7.0 GM/DL Albumin 3.9 GM/DL Calcium Level 9.6 MG/DL 9.3 MG/DL Alkaline Phosphatase 99 U/L Aspartate Amino Transf (AST/SGOT) 25 U/L Alanine Aminotransferase (ALT/SGPT) 28 U/L Total Bilirubin 0.7 MG/DL Sodium Level 133 MEQ/L 136 MEQ/L Potassium Level 3.6 MEQ/L 4.3 MEQ/L Chloride Level 99 MEQ/L 105 MEQ/L Carbon Dioxide Level 25.8 MEQ/L 21.4 MEQ/L Anion Gap 8 MEQ/L 10 MEQ/L Estimat Glomerular Filtration Rate 43 ML/MIN 14 ML/MIN Microbiology Date/Time Source Procedure Growth Status 07/18/17 14:47 Cerebral Spinal Fluid Lumbar Puncture Gram Stain - Final Complete 07/18/17 14:47 Cerebral Spinal Fluid Lumbar Puncture CSF Culture - Final NO GROWTH IN 72 HOURS Complete Imaging Last Impressions Lumbar Puncture Fluoroscopy 07/18/17 0000 Signed Impressions: Service Date/Time: Tuesday, July 18, 2017 14:27 - CONCLUSION: Uncomplicated fluoroscopically guided lumbar puncture with pressures as above. Bret Pereira Jr., MD Neck Magnetic Resonance Angiography 07/14/17 0843 Signed Impressions: Service Date/Time: Friday, July 14, 2017 17:10 - CONCLUSION: Normal examination. Ant Campbell MD Head Magnetic Resonance Angiography 10/842 Signed Impressions: Service Date/Time: Friday, July 14, 2017 17:10 - CONCLUSION: No acute disease. Bret Pereira Jr., MD Brain MRI 07/14/17842 Signed Impressions: Service Date/Time: Friday, July 14, 2017 17:10 - CONCLUSION: Normal examination for a patient of this age. Ant Campbell MD Chest X-Ray 07/14/17705 Signed Impressions: Service Date/Time: Friday, July 14, 2017 07:30 - CONCLUSION: Underinflated examination with atelectasis at the lung bases. Otherwise, no acute finding is identified. Santy Hernadez MD Physical Exam GENERAL: This is a well-nourished, well-developed patient, in no apparent distress. SKIN: No rashes, ecchymoses or lesions. Cool and dry. HEAD: Atraumatic. Normocephalic. No temporal or scalp tenderness. EYES: Pupils equal round and reactive. Extraocular motions intact. No scleral icterus. No injection or drainage. ENT: Nose without bleeding, purulent drainage or septal hematoma. Throat without erythema, tonsillar hypertrophy or exudate. Uvula midline. Airway patent. NECK: Trachea midline. CARDIOVASCULAR: Regular rate and rhythm without murmurs, gallops, or rubs. RESPIRATORY: Clear to auscultation. Breath sounds equal bilaterally. No wheezes , rales, or rhonchi. GASTROINTESTINAL: Abdomen soft, non-tender, nondistended. MUSCULOSKELETAL: Extremities without clubbing, cyanosis, or edema. No joint tenderness, effusion, or edema noted. No calf tenderness. Negative Homans sign bilaterally. NEUROLOGICAL: Awake and alert. Speech soft spoken. Some abnormal movts noted. Tone slightly increased. Plantars downgoing. ? neck pain on flexion. Psych cooperative IV line sites with no e.o infection. Assessment & Plan Remarks Meningoencephalitis: lymphocytic predominant likely viral. For completion of workup added Fungal and AFB cultures plus VZV PCR. acute encephalopathy; change from baseline Baseline Dementia Urinary incontinence likely related to acute process. acute renal failure: prerenal and acyclovir. Recs DC IV Acyclovir for viral meningitis Negative HSV PCR. Follow VZV PCR. Follow cultures. Follow encephalitis panel Follow CSF VDRL. Follow clinically. If viral due to HSV or VZV will start seeing response in 48 - 72 hrs. If other viral etiologies may not see the neuro improvement. Veronica.w family about this fact. Also explained lymphocytic predominance can be from other etiologies as well. merly Davis and Dr.Singh morelosw current test results and clinical exam today, also informed him I am discontinuing acyclovir IV. Time spent in excess of 40 mins. Critical thinking. Majo Mcclain MD Jul 21, 2017 14:52
--- NOTE | 2017-07-21 14:59 | HHI.PYPN ---
Subjective Remarks Patient seen for reevaluation in the medical floor. case was discussed by phone with Dr. Patel, and ant bedside with nurse in charge and . Patient remains agitated, very disorganized, with rapidly shifting levels of consciousness and attention, unable to follow verbal commands, very restless, and responding to internally stimuli. Review of Systems Except as stated in HPI: all other systems reviewed are Neg Mental Status Examination Appearance: Appropriate Consciousness: Highly Distractible Orientation: Person Motor Activity: Other (decreased) Speech: Incoherent, Other (poverty of speech) Fund of Knowledge: Poor Attention and Concentration: Easily Distracted, Inadequate Mood: Irritable Affect: Irritable Thought Process & Associations: Loose associations Thought Content: Thought blocking, Racing thoughts Suicidal Ideation: No Suicidal Plan: No Suicidal Intention: No Homicidal Ideation: No Homicidal Plan: No Homicidal Intention: No Insight: Poor Judgment: Poor Results Labs Test 07/20/17 16:50 07/21/17 09:20 Urine Color YELLOW Urine Turbidity HAZY Urine pH 6.0 Urine Specific [place] 1.012 Urine Protein 30 mg/dL Urine Glucose (UA) NEG mg/dL Urine Ketones NEG mg/dL Urine Occult Blood NEG Urine Nitrite NEG Urine Bilirubin NEG Urine Urobilinogen LESS THAN 2.0 MG/DL Urine Leukocyte Esterase NEG Urine RBC 1 /hpf Urine WBC 1 /hpf Urine Amorphous Sediment RARE Urine Mucus FEW /lpf Microscopic Urinalysis Comment CULT NOT INDICATED Blood Urea Nitrogen 25 MG/DL Creatinine 4.31 MG/DL Random Glucose 128 MG/DL Calcium Level 9.3 MG/DL Sodium Level 136 MEQ/L Potassium Level 4.3 MEQ/L Chloride Level 105 MEQ/L Carbon Dioxide Level 21.4 MEQ/L Anion Gap 10 MEQ/L Estimat Glomerular Filtration Rate 14 ML/MIN Date/Time Source Procedure Growth Status 07/14/17 07:20 Blood Peripheral Aerobic Blood Culture - Final NO GROWTH IN 5 DAYS Complete 07/14/17 07:20 Blood Peripheral Anaerobic Blood Culture - Final NO GROWTH IN 5 DAYS Complete 07/18/17 14:47 Cerebral Spinal Fluid Lumbar Puncture Gram Stain - Final Complete 07/18/17 14:47 Cerebral Spinal Fluid Lumbar Puncture CSF Culture - Final NO GROWTH IN 72 HOURS Complete Vitals/IOs Vital Signs Date Time Temp Pulse Resp B/P (MAP) Pulse Ox O2 Delivery O2 Flow Rate FiO2 07/21/17 11:46 98.0 79 20 139/70 (93) 98 07/18/17 18:20 21 Intake and Output 07/21/17 07/21/17 07/22/17 08:00 16:00 00:00 Intake Total 150 ml Balance 150 ml Assessment & Plan Problem List: (1) Dementia ICD Codes: F03.90 - Dementia Status: Acute Assessment & Plan: Continue to be delirious, with frequent agitation and behaviorally dysregulated. Difficult to redirect verbally. Will increase Seroquel to 25 mg bid. Agree with Geodon 10 mg im Q/8 PRN agitation and aggressive behavior. Assessment & Plan Estimated LOS: days Justification for Cont. Inpt. No criteria for admission Problem Qualifiers (1) Dementia: Toro Navarro MD Jul 21, 2017 14:59
[2017-07-21] MEDS: ACETAMINOPHEN 325 MG TAB PO PRN ×2 (16:50→20:50)
--- NOTE | 2017-07-21 17:05 | RADRPT ---
EXAM DATE/TIME: 07/21/2017 16:18 [place] COMPARISON: No previous studies available for comparison. INDICATIONS : Increased BUN/Creatinine. MEDICAL HISTORY : Gastroesophageal reflux disease. Hypothyroidism. Dementia. Anticoagulant therapy. Hypercholesterolemi a. Hypertension. Arthritis. Prostate cancer. SURGICAL HISTORY : CABG. Pacemaker. ENCOUNTER: Initial ACUITY: 1 day PAIN SCORE: 3/10 LOCATION: Bilateral flank MEASUREMENTS: RIGHT KIDNEY: 11.6 x 4.9 x 5.0 cm LEFT KIDNEY: 13.0 x 5.1 x 6.3 cm FINDINGS: RIGHT KIDNEY: Renal cortex is normal in thickness and echotexture. No hydronephrosis, stone, or mass. LEFT KIDNEY: Renal cortex is normal in thickness and echotexture. No hydronephrosis, stone, or mass. BLADDER: Nondistended. Not assessed. CONCLUSION: Normal sonographic appearance to the kidneys. Bret Lockhart MD on July 21, 2017 at 17:02 Board Certified Radiologist. This report was verified electronically.
--- NOTE | 2017-07-21 17:19 | HHI.PR ---
Review/Management Diagnosis 1 . History of Alzheimer's disease 2. Encephalopathy/encephalitis/viral etiology. 3. Pacemaker 4. Hypertension. 5. Coronary artery disease status post coronary artery bypass graft Evaluation and counselling: - I discussed at length with the family members, and daughter, the current neurologic status of the patient and that the patient developed an adverse effect of acyclovir, thus, after a discussion with ID accounting consultant, this was discontinued - The family understand that at this point, there is no other medical intervention, but for the symptomatic and supportive treatment, they want to wait for the pending CSF results, daughter wanted to establish a contact with palliative care. Plan - Neuro checks q. one hourly. - D/C Acyclovir, adverse reaction, abnormal kidney function - Fall precautions. - Supportive medical therapy, iv hydration, antipyretic - Tylenol Q6h prn - Continue supportive medical therapy - DVT prophylaxis. - GI p prophylaxis. - Continue Aricept and Namenda at current home doses - Daughter and are thinking of palliative care involvement. Diagnosis/Plan: Subjective Subjective Comments Reported increasing agitation by RN Psychiatry assessed patient and recommended Geodon, received one im injection Elevated BUN and S creatinine Discontinued Acyclovir and daughter at bed side Reported fever Active Medications Current Medications Medications (Trade) Dose Ordered Sig/Beth Route Start Time Stop Time Status Last Admin (NS Flush) 2 ml UNSCH PRN IV FLUSH 07/14/17 09:30 (NS Flush) 2 ml BID IV FLUSH 07/14/17 21:00 07/20/17 20:12 (Tylenol) 650 mg Q4H PRN PO 07/14/17 09:30 07/21/17 16:50 (Zofran Inj) 4 mg Q6H PRN IVP 07/14/17 09:30 (Narcan Inj) 0.4 mg UNSCH PRN IV PUSH 07/14/17 09:30 (Sherrell-Colace) 1 tab BID PO 07/14/17 21:00 07/21/17 07:14 (Milk Of Magnesia Liq) 30 ml Q12H PRN PO 07/14/17 09:30 (Senokot) 17.2 mg Q12H PRN PO 07/14/17 09:30 (Dulcolax Supp) 10 mg DAILY PRN RECTAL 07/14/17 09:30 (Lactulose Liq) 30 ml DAILY PRN PO 07/14/17 09:30 (Melatonin) 5 mg HS PRN PO 07/14/17 16:30 07/17/17 22:24 (Aricept) 10 mg HS PO 07/15/17 21:00 07/20/17 20:13 (Synthroid) 50 mcg DAILY@0600 PO 07/15/17 06:00 07/21/17 04:39 Patient Own Medication PT OWN MED: NON-FORMULARY D... DAILY PO 07/15/17 09:00 Future Hold (Cytomel) 25 mcg DAILY PO 07/17/17 09:00 07/21/17 07:14 (Vitamin B12 Inj) 1,000 mcg Q30D IM 07/16/17 15:00 07/16/17 16:17 (Lovenox Inj) 30 mg Q24H SQ 07/16/17 16:00 Future hold 07/21/17 14:20 (Pill Splitter) 1 ea UNSCH PRN OTHER 07/16/17 15:15 (Pepcid) 20 mg DAILY PO 07/17/17 09:00 07/21/17 07:14 (Pravachol) 20 mg DAILY PO 07/17/17 09:00 07/21/17 07:14 (Lopressor) 12.5 mg Q12HR PO 07/16/17 21:00 07/21/17 07:15 (Ferrous Sulfate) 325 mg BID PO 07/16/17 21:00 07/21/17 07:14 (Namenda) 5 mg DAILY PO 07/18/17 09:00 07/21/17 07:14 Potassium Chloride 10 meq/ Dextrose/Sodium Chloride 1,005 ml @ 150 mls/hr Q6H42M IV 07/20/17 11:00 07/21/17 11:29 (Geodon Inj) 10 mg Q8HR PRN IM 07/21/17 14:00 07/21/17 14:20 (SEROquel) 25 mg BID PO 07/21/17 21:00 Allergies Allergies Coded Allergies No Known Allergies ([id number]) Review of Systems All other ROS: ROS reviewed as documented in chart Exam I&O / VS 07/21/17 07/21/17 07/22/17 15:00 23:00 07:00 Intake Total 630 ml Output Total 500 ml Balance 130 ml Intake Oral 480 ml IV Total 150 ml Output Urine Total 500 ml # Voids 2 # Bowel Movements 1 Vital Signs Date Time Temp Pulse Resp B/P (MAP) Pulse Ox O2 Delivery O2 Flow Rate FiO2 07/21/17 15:44 99.0 83 20 176/73 (107) 98 07/21/17 11:46 98.0 79 20 139/70 (93) 98 07/21/17 08:35 91 07/21/17 07:41 97.8 173/ 07/21/17 04:00 98.1 76 18 137/63 (87) 95 07/20/17 20:12 98.8 88 18 135/93 (107) 97 Exam Comments GENERAL: Awake, alert, lays in bed with rigor and fever, and daughter at bed side HEENT: Atraumatic, normocephalic. Intact hearing. Intact vision. NECK: Soft, supple. No signs of meningeal irritation. CARDIOVASCULAR: Regular rate and rhythm. RESPIRATORY: Clear to auscultation GASTROINTESTINAL: Soft, nontender MUSCULOSKELETAL: Moves four extremities. No clubbing or cyanosis. NEUROLOGIC: Awake, alert, oriented to person, not to time or place. Speaks with a soft voice. Intact naming, poor comprehension and judgment. Positive Myerson sign. Cranial nerves are grossly intact. Motor system examination unable to accurately assess the muscle strength because of the lack of the cooperation due to the clinical condition. Fidgety movements of the UE. There is rigidity with mild cogwheeling in the bilateral upper and lower extremities with intermittent myoclonus in UE. Reflexes 1+ bilateral symmetrical. Plantars are bilaterally downgoing. Cerebellar functions unable to assess due to the condition of the patient. Objective Radiology Results Last 72 hours Impressions Renal Ultrasound 07/21/17 0000 Signed Impressions: Service Date/Time: Friday, July 21, 2017 16:18 - CONCLUSION: Normal sonographic appearance to the kidneys. Bret Lockhart MD Chest X-Ray 07/20/17 0000 Signed Impressions: Service Date/Time: June 17:26 - CONCLUSION: 1. Post surgical changes. 2. No acute abnormality. Stable compared to prior dated 07/14/17. Juwan Luis MD Micro and Labs Laboratory Tests Test 07/21/17 09:20 07/21/17 14:30 Blood Urea Nitrogen 25 Creatinine 4.31 Random Glucose 128 Calcium Level 9.3 Sodium Level 136 Potassium Level 4.3 Chloride Level 105 Carbon Dioxide Level 21.4 Anion Gap 10 Estimat Glomerular Filtration Rate 14 Urine Eosinophils NONE SEEN Urine Random Creatinine 68 Urine Random Total Protein 102 Urine Protein/Creatinine Ratio 1.50 Date/Time Source Procedure Growth Status 07/14/17 07:20 Blood Peripheral Aerobic Blood Culture - Final NO GROWTH IN 5 DAYS Complete 07/14/17 07:20 Blood Peripheral Anaerobic Blood Culture - Final NO GROWTH IN 5 DAYS Complete 07/18/17 14:47 Cerebral Spinal Fluid Lumbar Puncture Gram Stain - Final Complete 07/18/17 14:47 Cerebral Spinal Fluid Lumbar Puncture CSF Culture - Final NO GROWTH IN 72 HOURS Complete Silver Michael MD Jul 21, 2017 17:19
[2017-07-21 17:50] LABS: CALIFORNIA ENCEPH AB IGG <1:4 (<1:4); CALIFORNIA ENCEPH AB IGM <1:4 (<1:4); EAST EQUINE ENCEPH AB IGG <1:4 (<1:4); EAST EQUINE ENCEPH AB IGM <1:4 (<1:4); HAEMOPHILUS FLU AG TYPE B Not Detected (Not Detected); ST LOUIS ENCEPH AB IGG <1:4 (<1:4); ST LOUIS ENCEPH AB IGM <1:4 (<1:4); VDRL CSF NON-REACTIVE (NON-REACTVE); WEST EQUINE ENCEPH AB IGG <1:4 (<1:4); WEST EQUINE ENCEPH AB IGM <1:4 (<1:4)
[2017-07-21 18:17] LABS: COMPLEMENT C3 124 MG/DL (90-180); COMPLEMENT C4 26 MG/DL (10-40)
[2017-07-21 18:19] LABS: PHOSPHORUS 4.5 MG/DL (2.5-4.9)
[2017-07-21] MEDS: DONEPEZIL HCL 5 MG TAB PO SCH (20:48)
[2017-07-21] MEDS: QUEtiapine FUMARATE 25 MG TAB PO SCH (20:49)
[2017-07-22] VITALS (9 sets, daily range): BP systolic 136–194; BP diastolic 72–83; PULSE 63–92; RESP 18–22; TEMP 97.2–100.1; O2SAT 93–99
[2017-07-22] MEDS: POTASSIUM CHLORIDE INJ 10 MEQ in DEXT 5%-NACL 0.9% 1000 ML INJ 1,000 ML IV SCH ×4 (03:12→18:51)
[2017-07-22] MEDS: LEVOTHYROXINE SODIUM 50 MCG TAB PO SCH (04:56)
[2017-07-22] MEDS: FERROUS SULFATE 325 MG (65 MG ELEMENTAL IRON) TAB PO SCH ×2 (06:14→21:00)
[2017-07-22] MEDS: SODIUM CHLORIDE 0.9% FLUSH 10 ML FLUSH IV FLUSH SCH ×2 (06:14→21:00)
[2017-07-22] MEDS: DOCUSATE SODIUM 50 MG/SENNA 8.6 MG TAB PO SCH ×2 (06:14→21:00)
[2017-07-22] MEDS: PRAVASTATIN SOD 20 MG TAB PO SCH (06:20)
[2017-07-22] MEDS: FAMOTIDINE 20 MG TAB PO SCH (06:20)
[2017-07-22] MEDS: QUEtiapine FUMARATE 25 MG TAB PO SCH ×2 (06:20→21:00)
[2017-07-22] MEDS: MEMANTINE HCL 5 MG TAB PO SCH (06:20)
[2017-07-22] MEDS: LIOTHYRONINE SODIUM 25 MCG TAB PO SCH (06:20)
[2017-07-22] MEDS: METOPROLOL TARTRATE 25 MG TAB PO SCH ×2 (06:20→19:55)
[2017-07-22] MEDS: ACETAMINOPHEN 325 MG TAB PO PRN ×2 (06:20→19:55)
--- NOTE | 2017-07-22 09:03 | HHI.PR ---
Subjective Remarks T max 101.2 last evening- neuro status- unchanged, fidgeting, no meaningful verbal output yesterday - given x1 IM Geodon- patient calmed down and slept- but this was DC by neurology- concern about the fever - possible NMS seen by Psychiatry- Seroquel up to 25 mg po bid, agrees to Geodon IM prn- but as mentioned above DC will continue to montior MS very good urine output seen with daughter at bedside Objective Vitals Vital Signs Date Time Temp Pulse Resp B/P (MAP) Pulse Ox O2 Delivery O2 Flow Rate FiO2 07/22/17 08:27 87 07/22/17 08:00 97.2 83 21 171/83 (112) 94 07/22/17 06:15 100.1 07/22/17 04:00 98.0 92 22 160/75 (103) 94 07/22/17 00:18 99.0 77 18 136/72 (93) 95 07/21/17 20:00 101.2 101 20 129/78 (95) 95 07/21/17 16:50 100.2 07/21/17 15:44 99.0 83 20 176/73 (107) 98 07/21/17 11:46 98.0 79 20 139/70 (93) 98 I/O 07/21/17 07/21/17 07/21/17 07/22/17 07/22/17 07/22/17 07:00 15:00 23:00 07:00 15:00 23:00 Intake Total 630 ml 990 ml Output Total 500 ml 1220 ml Balance 130 ml 990 ml -1220 ml Intake Oral 480 ml IV Total 150 ml 990 ml Output Urine Total 500 ml 1220 ml # Voids 2 # Bowel Movements 1 1 Result Diagram: 07/20/17 0704 07/21/17 0920 Imaging Last Impressions Renal Ultrasound 07/21/17 0000 Signed Impressions: Service Date/Time: Friday, July 21, 2017 16:18 - CONCLUSION: Normal sonographic appearance to the kidneys. Bret Lockhart MD Chest X-Ray 07/20/17 0000 Signed Impressions: Service Date/Time: June 17:26 - CONCLUSION: 1. Post surgical changes. 2. No acute abnormality. Stable compared to prior dated 07/14/17. Juwan Luis MD Lumbar Puncture Fluoroscopy 07/18/17 0000 Signed Impressions: Service Date/Time: Tuesday, July 18, 2017 14:27 - CONCLUSION: Uncomplicated fluoroscopically guided lumbar puncture with pressures as above. Bret Pereira Jr., MD Neck Magnetic Resonance Angiography 07/14/17 0843 Signed Impressions: Service Date/Time: Friday, July 14, 2017 17:10 - CONCLUSION: Normal examination. Ant Campbell MD Head Magnetic Resonance Angiography 07/14/1743 Signed Impressions: Service Date/Time: Friday, July 14, 2017 17:10 - CONCLUSION: No acute disease. Bret Pereira Jr., MD Brain MRI 07/14/1743 Signed Impressions: Service Date/Time: Friday, July 14, 2017 17:10 - CONCLUSION: Normal examination for a patient of this age. nAt Campbell MD Objective Remarks puckering lips, fidgeting, no meaningful verbal output or interaction, moves all extremities T max 100.2 this am anicteric pupils equal no nuchal rigidity no rales or wheezes regular rhythm abdomen soft, no guarding extremities no edema morales in place moves all extremities spontaneously Procedures 07/18- LP Urinary Catheter: Yes Assessment to: Continue Morales insert reason: Measure Accurate Output Date of Insertion: Jul 21, 2017 A/P Assessment and Plan Mr. Hendricks is a 71 year old male with a history of dementia who presented to the ED after he was found unresponsive by his . Day prior to this admission , she brought him to the ED due to 5-6 day duration of increased confusion, shuffling gait. Acute encephalopathy-- Viral encephalitis Advance dementia S/P LP-- CSF will leukocytosis, high protein ., no growth in culture EEG unremarkable - Although he has dementia, apparently his degree of confusion is much more profound -per daughter- acute decline in MS and functioning - on Namenda and Aricept -speech therapy ff- for cognitive evaluation - on mechanical soft diet - Neurology ff.- - Acyclovir DC due to acute increase in renal function - calmed down and slept well with Geodon yesterday however Neuro suggested against this secondary to fever ? NMS will give x 1 Ativan now and monitor response New Fever UA, CXR negative 07/21 continue to monitor -Acute kidney injury- ATN secondary to Acyclovir continue IVF- good urine output ff BMP renal UL no obstruction Nephrology ff along with us Hyponatremia- stable NA improved to 133. ff BMP -History of hypothyroidsim on synthroid 50 mcg po daily low T3 - started cytomel 25 mcg po daily - Alzheimer's dementia - recent decompensation - Will continue home medications. -appreciate Dr. Navarro's recommendation Namenda + Aricept. On Seroquel up to 25 mg po bid - History of PM Hypertension Cardiology ff Patient has a [employer] pacemaker. continue on Cozaar Lopressor at 12.5 mg po bid. Plavix Iron deficiency Ferrous sulfate 325 mg po bid on H2 davy Low B12- given B12 IM x 1 then q 30 days Deconditioning- PT daily- need SNF Lovenox for DVT prophylaxis restart MS not improving really- needs to address nutrition- re: NGT - will d/w family d/w with -regarding worsening renal functions she agrees to hemodialysis if needed and may be tube feedings too but in the event of respiratory distress or cardiac arrest -no resuscitation no code 07/22- Palliative care consult to determine goals of care MS not improving creatinine pending- but with good urine output with IV hydration keep NPO - NGT- family will decide if they want to proceed with NGT Gama Patel MD Jul 22, 2017 09:03
--- NOTE | 2017-07-22 10:46 | HHI.PR ---
Objective Vitals Result Diagram: 07/20/17 0704 07/21/17 0920 Imaging Urinary Catheter: Yes Assessment to: Continue Suazo insert reason: Measure Accurate Output Date of Insertion: Jul 21, 2017 Gama Patel MD Jul 22, 2017 10:46
[2017-07-22 10:54] LABS: AUTOMATED NEUTROPHIL # 3.9 TH/MM3 (1.8-7.7); BASOPHIL % 0.5 % (0.0-2.0); EOSINOPHIL % 0.3 % (0.0-4.0); HEMATOCRIT 26.5 % (39.0-51.0); LYMPH % 8.3 % (9.0-44.0); LYMPHOCYTE # 0.4 TH/MM3 (1.0-4.8); MEAN CORPUSCULAR HEMOGLOBIN 30.3 PG (27.0-34.0); MONO % 10.7 % (0.0-8.0); MONOCYTE # 0.5 TH/MM3 (0-0.9); NEUT % 80.2 % (16.0-70.0); PLATELET COUNT 183 TH/MM3 (150-450); RED BLOOD COUNT 2.98 MIL/MM3 (4.50-5.90); RED CELL DISTRIBUTION WIDTH 15.3 % (11.6-17.2); WHITE BLOOD COUNT 4.9 TH/MM3 (4.0-11.0)
[2017-07-22] MEDS ORDERED: LORazepam 2 MG/ML VIAL IV PUSH ONE (11:00)
[2017-07-22 11:54] LABS: BICARBONATE 20.5 MEQ/L (21.0-32.0); BLOOD UREA NITROGEN 23 MG/DL (7-18); CHLORIDE 110 MEQ/L (98-107); CREATININE 3.76 MG/DL (0.60-1.30); GLOMERULAR FILTRATION RATE 16 ML/MIN (>89); GLUCOSE,RANDOM 111 MG/DL (74-106); SODIUM (NA) 141 MEQ/L (136-145)
--- NOTE | 2017-07-22 14:05 | HHI.NPPN ---
Subjective History of Present Illness The patient is a 71 yo [place] male who was brought in via EMS on 07/14 for AMS. He does have baseline dementia, but says he was worse. On 07/18 he underwent LP for further evaluation as MRI scans, BCx, and work up to that point was negative. Results suggestive of viral encephalitis and was subsequently started on IV Acyclovir. We have been consulted for evaluation of acute renal decline. Admitting SCr was 1.33 and [place] to 1.59 on 07/20 and subsequently to 4.31 on date on consult. Family is unaware of underlying CKD, but review of records suggests that baseline SCr since 2016 1.3. (Naty Knutson) Review of Systems General General Remarks Unable to obtain 2/2 to clinical condition (Naty Knutson) Objective Data Data 07/22/17 07/23/17 19:00 07:00 Output Total 800 ml Balance -800 ml Output Urine Total 800 ml Vital Signs Date Time Temp Pulse Resp B/P (MAP) Pulse Ox O2 Delivery O2 Flow Rate FiO2 07/22/17 12:00 98.6 85 21 162/77 (105) 93 07/22/17 08:27 87 07/22/17 08:00 97.2 83 21 171/83 (112) 94 07/22/17 06:15 100.1 07/22/17 04:00 98.0 92 22 160/75 (103) 94 07/22/17 00:18 99.0 77 18 136/72 (93) 95 07/21/17 20:00 101.2 101 20 129/78 (95) 95 07/21/17 16:50 100.2 07/21/17 15:44 99.0 83 20 176/73 (107) 98 (Naty Knutson) -: 07/22/17 0914 07/22/17 0914 Imaging Last Impressions Renal Ultrasound 07/21/17 0000 Signed Impressions: Service Date/Time: Friday, July 21, 2017 16:18 - CONCLUSION: Normal sonographic appearance to the kidneys. Bret Lockhart MD Chest X-Ray 07/20/17 0000 Signed Impressions: Service Date/Time: June 17:26 - CONCLUSION: 1. Post surgical changes. 2. No acute abnormality. Stable compared to prior dated 07/14/17. Juwan Luis MD Lumbar Puncture Fluoroscopy 07/18/17 0000 Signed Impressions: Service Date/Time: Tuesday, July 18, 2017 14:27 - CONCLUSION: Uncomplicated fluoroscopically guided lumbar puncture with pressures as above. Bret Pereira Jr., MD Neck Magnetic Resonance Angiography 07/14/17 0843 Signed Impressions: Service Date/Time: Friday, July 14, 2017 17:10 - CONCLUSION: Normal examination. Ant Campbell MD Head Magnetic Resonance Angiography 07/14/1743 Signed Impressions: Service Date/Time: Friday, July 14, 2017 17:10 - CONCLUSION: No acute disease. Bret Pereira Jr., MD Brain MRI 07/14/1743 Signed Impressions: Service Date/Time: Friday, July 14, 2017 17:10 - CONCLUSION: Normal examination for a patient of this age. Ant Campbell MD Tubes & Lines: Suazo Medication Review Current Medications Medications (Trade) Dose Ordered Sig/Beth Route Start Time Stop Time Status Last Admin (NS Flush) 2 ml UNSCH PRN IV FLUSH 07/14/17 09:30 (NS Flush) 2 ml BID IV FLUSH 07/14/17 21:00 07/21/17 20:48 (Tylenol) 650 mg Q4H PRN PO 07/14/17 09:30 07/22/17 06:20 (Zofran Inj) 4 mg Q6H PRN IVP 07/14/17 09:30 (Narcan Inj) 0.4 mg UNSCH PRN IV PUSH 07/14/17 09:30 (Sherrell-Colace) 1 tab BID PO 07/14/17 21:00 07/21/17 07:14 (Milk Of Magnesia Liq) 30 ml Q12H PRN PO 07/14/17 09:30 (Senokot) 17.2 mg Q12H PRN PO 07/14/17 09:30 (Dulcolax Supp) 10 mg DAILY PRN RECTAL 07/14/17 09:30 (Lactulose Liq) 30 ml DAILY PRN PO 07/14/17 09:30 (Melatonin) 5 mg HS PRN PO 07/14/17 16:30 07/17/17 22:24 (Aricept) 10 mg HS PO 07/15/17 21:00 07/21/17 20:48 (Synthroid) 50 mcg DAILY@0600 PO 07/15/17 06:00 07/21/17 04:39 Patient Own Medication PT OWN MED: NON-FORMULARY D... DAILY PO 07/15/17 09:00 Future Hold (Cytomel) 25 mcg DAILY PO 07/17/17 09:00 07/22/17 06:20 (Vitamin B12 Inj) 1,000 mcg Q30D IM 07/16/17 15:00 07/16/17 16:17 (Lovenox Inj) 30 mg Q24H SQ 07/16/17 16:00 Future hold 07/21/17 14:20 (Pill Splitter) 1 ea UNSCH PRN OTHER 07/16/17 15:15 (Pepcid) 20 mg DAILY PO 07/17/17 09:00 07/22/17 06:20 (Pravachol) 20 mg DAILY PO 07/17/17 09:00 07/22/17 06:20 (Lopressor) 12.5 mg Q12HR PO 07/16/17 21:00 07/22/17 06:20 (Ferrous Sulfate) 325 mg BID PO 07/16/17 21:00 07/21/17 20:48 (Namenda) 5 mg DAILY PO 07/18/17 09:00 07/22/17 06:20 Potassium Chloride 10 meq/ Dextrose/Sodium Chloride 1,005 ml @ 125 mls/hr Q8H3M IV 07/20/17 11:00 07/22/17 11:06 (SEROquel) 25 mg BID PO 07/21/17 21:00 07/22/17 06:20 (Naty Knutson) Physical Exam General Appearance Remarks Sleeping (Naty Knutson) Neck Neck Exam: Neck Supple, Trachea Midline (Naty Knutson) Pulmonary Resp Exam: Clear Bilaterally, Breath Sounds Equal (Naty Knutson) Cardiology CV Exam: Regular, Normal Sinus Rhythm (Naty Knutson) Gastrointestinal/Abdomen GI Exam: Soft, Non-Tender (Naty Knutson) Genitourinary Exam: Clear Urine (Naty Knutson) Integumentary Skin Exam: Clear, Warm (Naty Knutson) Extremeties Extremities Exam: No Edema (Naty Knutson) Neurologic Neuro Exam: Stuporous (Naty Knutson) Assessment/Plan Problem List: (1) Acute renal failure (ARF) ICD Codes: N17.9 - Acute kidney failure, unspecified Plan: At baseline, the patient appears to have underlying CKD with baseline SCr of 1.3 since 2016. Acute decline not entirely clear, but potentially related to introduction of Acyclovir. He appears to be volume depleted on exam and the introduction of acyclovir in a patient who is dehydrated can illicit deposition of acyclovir crystals in the tubules resulting in intratubular obstruction and inflammation. This has been held and IV fluids have been increased. Typically, if this is the case, resolution of acute renal decline occurs within 4 to 9 days after med discontinued. Renal functions improved overnight and UOP brisk. Continue IVF. Await finalization of labs Would be OK to discontinue Suazo tomorrow if UOP remains good if OK with primary. Medications should be adjusted for the patient's renal decline. Avoid nephrotoxic agents such as iodinated contrast and NSAIDs. Avoid gadolinium. (2) Acidosis ICD Codes: E87.2 - Acidosis Plan: Mild and likely related to ARF. Will try to add po bicarb today, but not sure if he will take. Will add to IVF if not able to tolerate po. (3) Anemia ICD Codes: D64.9 - Anemia, unspecified Plan: Repeat CBC with Fe panel (4) Hypertension ICD Codes: I10 - Hypertension Status: Acute Plan: Continue to hold Losartan. Add Amlodipine (5) Viral encephalitis ICD Codes: A86 - Unspecified viral encephalitis Plan: Acyclovir has been held. Appreciate ID input (6) Altered mental status ICD Codes: R41.82 - Altered mental status, unspecified Status: Acute (7) Coronary artery disease ICD Codes: I25.10 - Coronary artery disease Status: Acute (Naty Knutson) Plan The exam, history, and the medical decision-making described in the above note were completed with the assistance of the [place]. I reviewed and agree with the findings presented. (William Stafford MD) Problem Qualifiers (1) Altered mental status: Qualified Codes: R41.0 - Disorientation, unspecified Naty Knutson Jul 22, 2017 14:05 William Stafford MD Jul 22, 2017 15:27
[2017-07-22] MEDS: ENOXAPARIN SODIUM 30 MG/0.3 ML SYRINGE SQ SCH (14:40)
[2017-07-22] MEDS: amLODIPine BESYLATE 5 MG TAB PO SCH (14:40)
[2017-07-22] MEDS ORDERED: ZIPRASIDONE MESYLATE 20 MG VIAL IM ONE (14:45)
[2017-07-22 16:18] LABS: % SATURATION IRON PROFILE 4.1 % (20-50); IRON (FE) 13 MCG/DL (65-175); TOTAL IRON BINDING CAPACITY 318 MCG/DL (250-450)
[2017-07-22 16:21] LABS: FERRITIN 85 NG/ML (26-388)
[2017-07-22] MEDS ORDERED: cloNIDine HCL 0.1 MG/24 HR PATCH T-DERMAL SCH (17:00)
[2017-07-22] MEDS ORDERED: REMOVE OLD PATCH T-DERMAL SCH (17:00)
[2017-07-22] MEDS: DONEPEZIL HCL 5 MG TAB PO SCH (19:55)
[2017-07-22] MEDS: SODIUM BICARBONATE 650 MG TAB PO SCH (21:00)
[2017-07-23] VITALS: BP 198/88; PULSE 78; RESP 19; TEMP 99.5; O2SAT 96
[2017-07-23] MEDS ORDERED: MORPHINE SULFATE 2 MG/ML INJ IV PUSH ONE (01:15)
[2017-07-23] MEDS ORDERED: ZIPRASIDONE MESYLATE 20 MG VIAL IM ONE (02:30)
[2017-07-23 04:53] VITALS: BP 170/76; PULSE 84; RESP 19; TEMP 98.4; O2SAT 94
[2017-07-23] MEDS: LEVOTHYROXINE SODIUM 50 MCG TAB PO SCH (06:00)
[2017-07-23] MEDS: DOCUSATE SODIUM 50 MG/SENNA 8.6 MG TAB PO SCH (07:18)
[2017-07-23] MEDS: FERROUS SULFATE 325 MG (65 MG ELEMENTAL IRON) TAB PO SCH (07:18)
[2017-07-23] MEDS: SODIUM CHLORIDE 0.9% FLUSH 10 ML FLUSH IV FLUSH SCH (07:18)
[2017-07-23] MEDS: POTASSIUM CHLORIDE INJ 10 MEQ in DEXT 5%-NACL 0.9% 1000 ML INJ 1,000 ML IV SCH ×2 (07:19→09:03)
[2017-07-23] MEDS: FAMOTIDINE 20 MG TAB PO SCH (07:21)
[2017-07-23] MEDS: MEMANTINE HCL 5 MG TAB PO SCH (07:21)
[2017-07-23] MEDS: LIOTHYRONINE SODIUM 25 MCG TAB PO SCH (07:21)
[2017-07-23] MEDS: amLODIPine BESYLATE 5 MG TAB PO SCH (07:21)
[2017-07-23] MEDS: SODIUM BICARBONATE 650 MG TAB PO SCH (07:21)
[2017-07-23] MEDS: METOPROLOL TARTRATE 25 MG TAB PO SCH (07:21)
[2017-07-23] MEDS: QUEtiapine FUMARATE 25 MG TAB PO SCH (07:22)
[2017-07-23] MEDS: PRAVASTATIN SOD 20 MG TAB PO SCH (07:22)
[2017-07-23 08:08] VITALS: BP 186/94; PULSE 66; RESP 18; TEMP 98.2
[2017-07-23] MEDS ORDERED: cloNIDine HCL 0.1 MG TAB PO PRN (10:45)
[2017-07-23] MEDS ORDERED: MORPHINE SULFATE 2 MG/ML INJ IV PUSH PRN (11:00)
--- NOTE | 2017-07-23 11:04 | HHI.PR ---
Subjective Remarks patient confused, agitated, puckering- no meaningful interaction discussed with family- leaning towards Hospice meeting with palliative care today hopefully seen with a good family friend- whi is a palliative care nurse Objective Vitals Vital Signs Date Time Temp Pulse Resp B/P (MAP) Pulse Ox O2 Delivery O2 Flow Rate FiO2 07/23/17 08:08 98.2 66 18 186/94 (124) 07/23/17 04:53 98.4 84 19 170/76 (107) 94 07/23/17 00:00 99.5 78 19 198/88 (124) 96 07/22/17 20:23 100.1 79 20 177/77 (110) 94 07/22/17 18:03 73 07/22/17 16:00 98.8 63 21 194/81 (118) 99 07/22/17 12:00 98.6 85 21 162/77 (105) 93 I/O 07/22/17 07/22/17 07/22/17 07/23/17 07/23/17 07/23/17 07:00 15:00 23:00 07:00 15:00 23:00 Intake Total 1730 ml Output Total 1220 ml 2000 ml 800 ml 1800 ml Balance -1220 ml -2000 ml 930 ml -1800 ml IV Total 1730 ml Output Urine Total 1220 ml 2000 ml 800 ml 1800 ml # Bowel Movements 1 0 Result Diagram: 07/22/1714 07/22/1714 Imaging Last Impressions Renal Ultrasound 07/21/17 0000 Signed Impressions: Service Date/Time: Friday, July 21, 2017 16:18 - CONCLUSION: Normal sonographic appearance to the kidneys. Bret Lockhart MD Chest X-Ray 07/20/17 0000 Signed Impressions: Service Date/Time: June 17:26 - CONCLUSION: 1. Post surgical changes. 2. No acute abnormality. Stable compared to prior dated 07/14/17. Juwan Luis MD Lumbar Puncture Fluoroscopy 07/18/17 0000 Signed Impressions: Service Date/Time: Tuesday, July 18, 2017 14:27 - CONCLUSION: Uncomplicated fluoroscopically guided lumbar puncture with pressures as above. Bret Pereira Jr., MD Neck Magnetic Resonance Angiography 07/14/17 0843 Signed Impressions: Service Date/Time: Friday, July 14, 2017 17:10 - CONCLUSION: Normal examination. Ant Campbell MD Head Magnetic Resonance Angiography 07/14/17842 Signed Impressions: Service Date/Time: Friday, July 14, 2017 17:10 - CONCLUSION: No acute disease. Bret Pereira Jr., MD Brain MRI 07/14/1743 Signed Impressions: Service Date/Time: Friday, July 14, 2017 17:10 - CONCLUSION: Normal examination for a patient of this age. Ant Campbell MD Objective Remarks childllike no meaningful verbal output or interaction, moves all extremities anicteric pupils equal no nuchal rigidity no rales or wheezes regular rhythm abdomen soft, no guarding extremities no edema morales in place moves all extremities spontaneously Procedures 07/18- LP Urinary Catheter: No Assessment to: Remove Date of Insertion: Jul 21, 2017 Date of Removal: Jul 23, 2017 A/P Assessment and Plan Mr. Hendricks is a 71 year old male with a history of dementia who presented to the ED after he was found unresponsive by his . Day prior to this admission , she brought him to the ED due to 5-6 day duration of increased confusion, shuffling gait. Acute encephalopathy-- Viral encephalitis Advance dementia S/P LP-- CSF will leukocytosis, high protein ., no growth in culture EEG unremarkable - Although he has dementia, apparently his degree of confusion is much more profound -per daughter- acute decline in MS and functioning - on Namenda and Aricept -speech therapy ff- for cognitive evaluation - on mechanical soft diet - Neurology ff.- - Acyclovir DC due to acute increase in renal function - calmed down and slept well with Geodon yesterday however Neuro suggested against this secondary to fever ? NMS will give x 1 Ativan now and monitor response d/w family - leaning towards palliative and eventual hospice comfort measures. No NGT IV morphine for agitation and pain/Geodon prn New Fever - T down UA, CXR negative 07/21 continue to monitor -Acute kidney injury- ATN secondary to Acyclovir continue IVF- good urine output ff BMP- creatinine improving renal US - no obstruction Nephrology ff along with us family requested morales to be removed- change to condom Hyponatremia- stable NA improved to 133. ff BMP -History of hypothyroidsim on synthroid 50 mcg po daily low T3 - started cytomel 25 mcg po daily - Alzheimer's dementia - recent decompensation - Will continue home medications. -appreciate Dr. Navarro's recommendation Namenda + Aricept. On Seroquel up to 25 mg po bid - History of PM Hypertension Cardiology ff Patient has a [employer] pacemaker. continue on Cozaar Lopressor at 12.5 mg po bid. Plavix Iron deficiency Ferrous sulfate 325 mg po bid on H2 davy Low B12- given B12 IM x 1 then q 30 days Deconditioning- PT daily- need SNF Lovenox for DVT prophylaxis restart 4 pm d/w family- opted for palliative and possibly hospice DC IVF, - d/w them that creatinine is improving with IVF. they want it discontinued DC IM/SQ meds Gama Patel MD Jul 23, 2017 11:04
[2017-07-23 12:18] VITALS: BP 172/87; PULSE 73; RESP 18; TEMP 98.6
[2017-07-23 13:37] LABS: HEMATOCRIT 28.4 % (39.0-51.0); HEMOGLOBIN 9.3 GM/DL (13.0-17.0); MEAN CORPUSCULAR HEMOGLOBIN 29.3 PG (27.0-34.0); MEAN CORPUSCULAR HGB CONC 32.6 % (32.0-36.0); MEAN PLATELET VOLUME 7.6 FL (7.0-11.0); PLATELET COUNT 209 TH/MM3 (150-450); RED BLOOD COUNT 3.16 MIL/MM3 (4.50-5.90); RED CELL DISTRIBUTION WIDTH 15.3 % (11.6-17.2); WHITE BLOOD COUNT 6.1 TH/MM3 (4.0-11.0)
[2017-07-23 13:52] LABS: CF JC VIRUS DNA NEGATIVE (<10 COPIES)
[2017-07-23 14:11] LABS: BICARBONATE 24.5 MEQ/L (21.0-32.0); CALCIUM 9.3 MG/DL (8.5-10.1); CREATININE 2.1 MG/DL (0.60-1.30)
[2017-07-23] MEDS ORDERED: ZIPRASIDONE MESYLATE 20 MG VIAL IM PRN (14:45)
[2017-07-23] MEDS: ENOXAPARIN SODIUM 30 MG/0.3 ML SYRINGE SQ SCH (15:38)
[2017-07-23 16:10] VITALS: BP 162/74; PULSE 80; RESP 18; TEMP 102.7; O2SAT 93
--- NOTE | 2017-07-23 17:08 | HHI.DS ---
Discharge Summary Admission Date Jul 14, 2017 at 09:30 Discharge Date: Jul 23, 2017 Admitting Diagnosis altered mental status. Rule out sepsis. (1) Viral encephalitis ICD Code: A86 - Unspecified viral encephalitis (2) Acute renal failure (ARF) ICD Code: N17.9 - Acute kidney failure, unspecified Procedures 07/18- LP Brief History - From Admission Mr. Hendricks is a 71-year-old male with a history of Alzheimer's dementia who presents to the emergency department today due to increased confusion, shuffling gait. History is mostly taken from patient's present at bedside. On 07/10/2017, patient was noted to be more confused than his baseline. Within 2 days he also had shuffling gait, headache. He could not keep his legs straight. He was so confused that he would go to the bathroom take all his clothes off and urinated on the floor. He had a temperature of 100.9F in the last few days patient was evaluated in the emergency department yesterday. However the workup was within normal limit and patient went home. This morning, however, patient was found unresponsive and subsequently EMS was called by his . At the time of this interview, patient is alert and awake but heavily confused. Per patient's , no chest pain, shortness of breath, abdominal pain or cough. CBC/BMP: 07/23/17 1311 07/23/17 1311 Significant Findings Laboratory Tests Test 07/21/17 09:20 07/21/17 14:30 07/21/17 17:25 07/22/17 09:14 Blood Urea Nitrogen 25 MG/DL (7-18) 23 MG/DL (7-18) Creatinine 4.31 MG/DL (0.60-1.30) 3.76 MG/DL (0.60-1.30) Random Glucose 128 MG/DL (74-106) 111 MG/DL (74-106) Estimat Glomerular Filtration Rate 14 ML/MIN (>89) 16 ML/MIN (>89) Urine Random Total Protein 102 MG/DL (0-11.8) Urine Protein/Creatinine Ratio 1.50 (0.00-0.14) Red Blood Count 2.98 MIL/MM3 (4.50-5.90) Hemoglobin 9.0 GM/DL (13.0-17.0) Hematocrit 26.5 % (39.0-51.0) Neutrophils (%) (Auto) 80.2 % (16.0-70.0) Lymphocytes (%) (Auto) 8.3 % (9.0-44.0) Monocytes (%) (Auto) 10.7 % (0.0-8.0) Lymphocytes # (Auto) 0.4 TH/MM3 (1.0-4.8) Chloride Level 110 MEQ/L (98-107) Carbon Dioxide Level 20.5 MEQ/L (21.0-32.0) Iron Level 13 MCG/DL (65-175) Percent Iron Saturation 4.1 % (20-50) Test 07/23/17 13:11 Red Blood Count 3.16 MIL/MM3 (4.50-5.90) Hemoglobin 9.3 GM/DL (13.0-17.0) Hematocrit 28.4 % (39.0-51.0) Creatinine 2.10 MG/DL (0.60-1.30) Chloride Level 111 MEQ/L (98-107) Estimat Glomerular Filtration Rate 31 ML/MIN (>89) Imaging Last Impressions Renal Ultrasound 07/21/17 0000 Signed Impressions: Service Date/Time: Friday, July 21, 2017 16:18 - CONCLUSION: Normal sonographic appearance to the kidneys. Bret Lockhart MD Chest X-Ray 07/20/17 0000 Signed Impressions: Service Date/Time: June 17:26 - CONCLUSION: 1. Post surgical changes. 2. No acute abnormality. Stable compared to prior dated 07/14/17. Juwan Luis MD Lumbar Puncture Fluoroscopy 07/18/17 0000 Signed Impressions: Service Date/Time: Tuesday, July 18, 2017 14:27 - CONCLUSION: Uncomplicated fluoroscopically guided lumbar puncture with pressures as above. Bret Pereira Jr., MD Neck Magnetic Resonance Angiography 07/14/17 0843 Signed Impressions: Service Date/Time: Friday, July 14, 2017 17:10 - CONCLUSION: Normal examination. Ant Campbell MD Head Magnetic Resonance Angiography 07/14/17842 Signed Impressions: Service Date/Time: Friday, July 14, 2017 17:10 - CONCLUSION: No acute disease. Bret Pereira Jr., MD Brain MRI 07/14/17842 Signed Impressions: Service Date/Time: Friday, July 14, 2017 17:10 - CONCLUSION: Normal examination for a patient of this age. Ant Campbell MD PE at Discharge confused no meaningful verbal output or interaction, moves all extremities anicteric pupils equal no nuchal rigidity no rales or wheezes regular rhythm abdomen soft, no guarding extremities no edema morales in place moves all extremities spontaneously Pt update on day of discharge lethargic, no meaningful interaction Hospital Course Mr. Hendricks is a 71 year old male with a history of dementia who presented to the ED after he was found unresponsive by his . Day prior to this admission , she brought him to the ED due to 5-6 day duration of increased confusion, shuffling gait. Acute encephalopathy-- Viral encephalitis Advance dementia S/P LP-- CSF will leukocytosis, high protein ., no growth in culture EEG unremarkable - Although he has dementia, apparently his degree of confusion is much more profound -per daughter- acute decline in MS and functioning - on Namenda and Aricept -speech therapy ff- for cognitive evaluation - on mechanical soft diet - Neurology ff.- - Acyclovir DC due to acute increase in renal function - calmed down and slept well with Geodon yesterday however Neuro suggested against this secondary to fever ? NMS will give x 1 Ativan now and monitor response d/w family - leaning towards palliative and eventual hospice comfort measures. No NGT IV morphine for agitation and pain/Geodon prn New Fever - T down UA, CXR negative 07/21 continue to monitor -Acute kidney injury- ATN secondary to Acyclovir continue IVF- good urine output ff BMP- creatinine improving renal US - no obstruction Nephrology ff along with us family requested morales to be removed- change to condom Hyponatremia- stable NA improved to 133. ff BMP -History of hypothyroidsim on synthroid 50 mcg po daily low T3 - started cytomel 25 mcg po daily - Alzheimer's dementia - recent decompensation - Will continue home medications. -appreciate Dr. Navarro's recommendation Namenda + Aricept. On Seroquel up to 25 mg po bid - History of PM Hypertension Cardiology ff Patient has a [employer] pacemaker. continue on Cozaar Lopressor at 12.5 mg po bid. Plavix Iron deficiency Ferrous sulfate 325 mg po bid on H2 davy Low B12- given B12 IM x 1 then q 30 days Deconditioning- PT daily- need SNF Lovenox for DVT prophylaxis restart 4 pm d/w family- opted for palliative and possibly hospice DC IVF, - d/w them that creatinine is improving with IVF. they want it discontinued Pt Condition on Discharge: Deteriorating Discharge Disposition: Hospice/Med Facility Discharge Time: > 30 minutes Discharge Instructions DIET: Follow Instructions for: Nothing By Mouth Speech Therapy-Diet Recommends: Other Additional Diet Instructions: NPO Activities you can perform: Continue Bedrest Gama Patel MD Jul 23, 2017 17:08
[2017-07-23] MEDS ORDERED: MORPHINE SULFATE ORAL SOLN 10 MG/0.5 ML SYRINGE SL PRN (17:15)
[2017-07-24 16:41] LABS: ALB/GLOB RATIO (SPE) 1.62 (1.39-2.23)
[2017-07-25 07:51] LABS: VZV PCR RESULT 8028 (<500 copies)
== END 2017-07-23 19:13 | disposition hospice, inpatient (51) | DRG 97 ==
LOC: NEPC 06:56 → NEDA 09:30 → N05B 10:38
PROVIDERS: ADMIT Internal Medicine; ATTEND Internal Medicine
PROC: 009U30Z Drainage of Spinal Canal with Drainage Device, Percutaneous Approach (ICD-10-PCS; principal; 2017-07-18)
PROC: B01B1ZZ Fluoroscopy of Spinal Cord using Low Osmolar Contrast (ICD-10-PCS; 2017-07-18)
DX: A86 Unspecified viral encephalitis (principal); N17.0 Acute kidney failure with tubular necrosis; E87.2 Acidosis; G93.40 Encephalopathy, unspecified; E87.1 Hypo-osmolality and hyponatremia; J98.11 Atelectasis; R47.01 Aphasia; G30.9 Alzheimer's disease, unspecified; F02.80 Dementia in other diseases classified elsewhere, unspecified severity, without behavioral disturbance, psychotic disturbance, mood disturbance, and anxiety; E61.1 Iron deficiency; D64.9 Anemia, unspecified; E03.9 Hypothyroidism, unspecified; E78.5 Hyperlipidemia, unspecified; E86.0 Dehydration; I12.9 Hypertensive chronic kidney disease with stage 1 through stage 4 chronic kidney disease, or unspecified chronic kidney disease; N18.9 Chronic kidney disease, unspecified; I25.10 Atherosclerotic heart disease of native coronary artery without angina pectoris; I49.5 Sick sinus syndrome; K21.9 Gastro-esophageal reflux disease without esophagitis; M10.9 Gout, unspecified; R32 Unspecified urinary incontinence; Z51.5 Encounter for palliative care; Z79.02 Long term (current) use of antithrombotics/antiplatelets; Z79.899 Other long term (current) drug therapy; Z85.46 Personal history of malignant neoplasm of prostate; Z92.3 Personal history of irradiation; Z95.0 Presence of cardiac pacemaker; Z95.1 Presence of aortocoronary bypass graft
CPT/HCPCS: 62270; 70544; 70548; 70553; 71010; 76775; 76937; 77003; 80048; 80053; 81001; 82306; 82550; 82570; 82607; 82728; 82746; 82945; 83540; 83550; 83605; 83880; 83883; 83970; 84100; 84156; 84157; 84165; 84425; 84439; 84443; 84481; 84484; 85025; 85027; 85610; 85730; 86160; 86403; 86592; 86618; 86651; 86652; 86653; 86654; 86803; 87015; 87040; 87070; 87205; 87529; 87798; 87799; 87801; 89051; 93005; 95819; 96365; 96367; A9579; J0133; J1650; J2060; J2270; J2543; J3370; J3420; J3480; J3486; J7030; J7042; J7050